=== PATIENT | male | born 1960 | race Caucasian/White ===

== ENCOUNTER 2020-05-10 20:17 | Inpatient (IN) | payer OTHER ==
[~2020-05-10] VITALS: Ht 180.3 cm; Wt 124.0 kg
[2020-05-10] MEDS ORDERED: fentaNYL PF VIAL 100 MCG/2 ML VIAL IVP ONE (21:00)
--- NOTE | 2020-05-10 21:53 | PHYS DOC ---
Past Medical History Past Medical History: Hypertension Additional Past Medical Histor: CHRONS (BRADLEYNIKAdolfoLOLA APRN) Past Surgical History: Other Additional Past Surgical Histo: HERNIS REPAIRS (LOLA BLANCO APRN) Smoking Status: Current Every Day Smoker Alcohol Use: Rarely (FRANCISLOLA LR) General Adult EDM: Chief Complaint: HIP PAIN HPI: HPI: Patient is a 59 year old male who presents with sudden onset of right leg pain numbness and tingling that started at approximately 1930 today while he was sitting in a home office chair. Patient attributes his pain to last Sunday stating he fell through the top stair of of a short staircase and landed approximately 3 feet onto the ground with both feet causing an abrasion to the right bean area that he has been cleansing daily with soap and water and placing Neosporin and Band-Aids over. Patient states that he was able to ambulate without problems other than the soreness in his right bean area until today while sitting in his office chair he had the sudden onset of severe pain that started in the right buttocks and trouble down the back of his leg along with some tingling from the calf area down to his foot and then noticed some numbness on the anterior part of his bean and the top part of his foot which prompted him to come to the emergency department today. Patient rates his pain a 10 out of 10 in his right buttocks down through his right leg area and states he cannot get comfortable although he did not take anything for the pain prior to coming to the emergency department today patient denies pain to other extremities. Patient states he does have a history of hypertension which he takes lisinopril for daily Crohn's disease which he takes Humira for daily and chronic back pains that he takes Flexeril and meloxicam for every night. Patient also indicates he has a left lower groin hernia that is easily reduced and reports he will schedule surgery in the future for. Patient denies any fever chills any current vision changes any nasal congestion or sore throat. Patient denies any cough or shortness of breath. Chest pain or swelling of his extremities. Patient denies any abdominal pain, nausea, vomiting, diarrhea, blood in the stools, or constipation. Patient denies any problems urinating. Patient denies any pain in his joints other than his right lower extremity today. Patient denies any skin rashes although complains of an abrasion to his right bean that he has been caring for at home. Patient denies any headaches or focal weaknesses although does complain of sensory changes down his right lower extremity. Patient denies any swelling of his glands, any recent depression or anxieties, patient denies any homicidal suicidal ideations. Patient states he has a family history with a dad who is healthy and has no problems and takes no medicines. Mother has heart problems he is not aware of the specificity. (LOLA BLANCO APRN) Review of Systems: Review of Systems: Constitutional: Denies fever or chills. Eyes: Denies change in visual acuity. HENT: Denies nasal congestion or sore throat. Respiratory: Denies cough or shortness of breath. Cardiovascular: Denies chest pain or edema. GI: Denies abdominal pain, nausea, vomiting, bloody stools or diarrhea. : Denies dysuria. Musculoskeletal: Complains of chronic back pain that he takes prescription medications for, changes today include a severe right-sided low back pain that travels down his right leg. Patient denies any joint pains other than his knee and hip of the right leg. Integument: Denies rash. Patient does complain of abrasion down right bean that he is caring for at home with daily cleansing and application of antibiotic ointment with Band-Aids. Neurologic: Denies headache, focal weakness or sensory changes. Lymphatic: Denies swollen glands. Psychiatric: Denies depression or anxiety, homicidal or suicidal ideation. (LOLA BLANCO APRN) Heart Score: Risk Factors: Risk Factors: DM, Current or recent (<one month) smoker, HTN, HLP, family history of CAD, obesity. Risk Scores: Score 0 - 3: 2.5% MACE over next 6 weeks - Discharge Home Score 4 - 6: 20.3% MACE over next 6 weeks - Admit for Clinical Observation Score 7 - 10: 72.7% MACE over next 6 weeks - Early Invasive Strategies (LOLA BLANCO APRN) Family History: Family History: Patient states father is healthy takes no medications, mother has a heart condition he is unaware the specificity of. (LOLA BLANCO APRN) Current Medications: Patient states he takes lisinopril for hypertension, Humira for Crohn's disease, meloxicam and Flexeril at night for chronic back pains. Current Medications Medications (Trade) Dose Ordered Sig/[facility] Start Time Stop Time Status Last Admin Dose Admin Fentanyl Citrate (Fentanyl 2ml Vial) 75 mcg 1X ONCE 05/10/20 21:00 05/10/20 21:01 DC 05/10/20 21:10 75 MCG (LOLA BLANCO APRN) Allergies: Allergies: Allergies Coded Allergies Type Severity Reaction Last Updated Verified No Known Drug Allergies 05/10/20 No (LOLA BLANCO APRN) Physical Exam: PE: Constitutional: Well developed, well nourished, no acute distress, non-toxic appearance. HENT: Normocephalic, atraumatic, bilateral external ears normal, oropharynx moist, no oral exudates, nose normal. Eyes: PERRLA, EOMI, conjunctiva normal, no discharge. Pupils 4 mm. Neck: Normal range of motion, no tenderness, supple, no stridor. Cardiovascular:Heart rate regular rhythm, no murmur heart sounds S1-S2, no abnormalities noted per auscultation. Lungs & Thorax: Bilateral breath sounds clear to auscultation all lung valencia. Abdomen: Bowel sounds normal, soft, no tenderness, no masses, no pulsatile masses. Patient does have a reducible hernia in the left groin. Skin: Warm, dry, no erythema, no rash. Patient is left bean has abrasion from knee down to ankle area, nonbleeding, no infectious process noted. Back: Tenderness to the right side lumbar area with radiation down buttocks and right lower extremity, no CVA tenderness. Extremities: Tenderness to palpation from the right buttocks down the anterior thigh to the knee. Leg is ecchymotic with slight mottling, pedal and posterior tibial pulse not appreciated per palpation, limited range of motion related to pain, PROM intact, no edema. Neurologic: Alert and oriented X 3, normal motor function, normal sensory function, no focal deficits noted. Psychologic: Affect normal, judgement normal, mood normal. (LOLA BLANCO APRN) Current Patient Data: Vital Signs: Vital Signs Date Time Temp Pulse Resp B/P (MAP) Pulse Ox O2 Delivery O2 Flow Rate FiO2 05/10/20 21:10 Room Air 05/10/20 20:29 98.3 98 16 141/82 (101) 98 98.3 (LOLA BLANCO APRN) EKG: EKG: [] (LOLA BLANCO APRN) EKhrs EKG rate 106bmp sinus tachycardia no stemi (URIEL SALCEDO DO) Radiology/Procedures: Radiology/Procedures: PROCEDURE: CT ANGIO LOWER EXTREMITY RIGHT Right lower extremity arterial runoff study 05/10/2020 CLINICAL HISTORY: Cold blue right lower extremity with decreased sensation and movement. TECHNIQUE: After intravenous administration of 95 cc of Omnipaque 350, contiguous, 0.625 mm axial sections were obtained from the lower abdomen through the pelvis to include a right lower extremity arterial runoff study. Multiplanar 3-D MIP and volume rendered 3-D reconstructed images were obtained. One or more of the following individualized dose reduction techniques were utilized for this study: 1. Automated exposure control. 2. Adjustment of the mA and/or kV according to patient size. 3. Use of iterative reconstruction technique. FINDINGS: Atherosclerotic calcification of the distal abdominal aorta is seen. Moderate atherosclerotic calcification of the common iliac arteries and their branches is noted. The right common iliac artery is occluded 8 mm distal to its origin. The right external iliac artery is occluded. The proximal right internal iliac artery is occluded. Opacification of branches of the right internal iliac artery is seen via collaterals. The left common iliac artery and its branches are patent. The right common femoral artery opacifies with contrast via collateral arterial flow. Moderate atheromatous/atherosclerotic plaque formation is seen involving the major arterial structures of the right lower extremity. The right profunda femoral artery is patent. The right superficial femoral artery is patent. The right popliteal artery is narrowed distally. This stenosis measures approximately 50 percent and measures approximately 1 cm in length. The origin of the right anterior tibial artery is patent. The origins of the peroneal and posterior tibial arteries are patent. These arteries are small. The right anterior tibial artery is occluded approximately 9 cm distal to its origin. The peroneal artery appears to be occluded within the mid/distal right calf. The right posterior tibial artery extends to the right ankle/proximal right foot. No enhancement of the right dorsalis pedis artery is noted. There is a large left inguinal hernia which contains fat and nondilated sigmoid colon. This measures 13.2 cm in length. Degenerative changes are seen involving the lower lumbar spine and both hips. IMPRESSION: 1. Moderate atherosclerotic calcification of the right common iliac arteries and its branches is noted. The right common iliac artery is occluded near its origin. This extends to involve the right external iliac artery and proximal right internal iliac artery. The right common femoral artery reconstitutes via arterial collaterals. 2. A 50 percent stenosis is seen involving the distal right popliteal artery. 3. The right anterior tibial artery appears to be occluded 9 cm distal to its origin. The right peroneal artery appears to occlude within the mid/distal right calf. One vessel arterial runoff to the right ankle/foot is seen via he right posterior tibial artery. Electronically signed by: Gordon Law MD (05/10/2020 11:31 PM) [id number] DICTATED and SIGNED BY: GORDON LAW MD DATE: 05/10/202330 (LOLA BLANCO APRN) Course & Med Decision Making: Course & Med Decision Making Pertinent Labs and Imaging studies reviewed. (See chart for details) 59-year-old male that presented to the emergency department with right lower extremity pain sudden onset of started 1730 today while sitting in an office chair. Patient specifically describes a sudden onset of right lower back pain that travels down his buttocks down the back of his leg that changes into a tingling sensation down his calf area with numbness on the anterior bean area midshaft down to his foot. Patient indicates he fell through at the top step of a short staircase to the ground falling approximately 3 feet landing onto his feet and pulled himself back out of the staircase noticing an abrasion to his right bean area that he has been taking care with soap and water and antibiotic ointment daily. Physical examination was concerning for a vascular compromise as right lower extremity had areas of bruising light mottling and pedal along with posterior tibial pulses were not appreciated with palpation. Pain medication was ordered for patient's 10 out of 10 pain, labs were ordered, CT angio of the right lower extremity to rule out arterial compromise was ordered. Labs and EKG was also ordered. Upon the end of my shift imaging had not been completed, case was discussed with and primary emergency care was taken over by Dr. Uriel Salcedo, please refer to Dr. Salcedo's notes going forward. (LOLA BLANCO APRN) Course & Med Decision Making Patient was evaluated for chief complaint. On exam patient with a cold left lower extremity no palpable pulses. After evaluation CT angiogram extremity ordered-- clinical concern for arterial occlusion. CT report reviewed @ 2345--- Heprin ordered. Discussed patient with Dr Seaman of IR @ 2355hrs. Discussed patient with Dr Decker of Vascular Surgery @ 0000hrs. Patient to be taken to OR by Dr Decker. Patient to be admitted to Hospitalist. (URIEL SALCEDO DO) Gabriela Disclaimer: Dragdilshad Disclaimer: This electronic medical record was generated, in whole or in part, using a voice recognition dictation system. (LOLA BLANCO APRN) Departure Departure Impression: Primary Impression: Arterial occlusion Disposition: ADMITTED INPATIENT Condition: STABLE Justicifation of Admission Dx: Justifications for Admission: Justification of Admission Dx: Yes Comments: SURGICAL RLE WITH ARTERIAL OCCLUSION. (LOLA BLANCO APRN) LOLA BLANCO APRN May 10, 2020 21:53 URIEL SALCEDO DO May 11, 2020 01:30
[2020-05-10] MEDS ORDERED: HYDROmorphone 2 MG/ML VIAL IV ONE (22:00)
[2020-05-10 22:15] LABS: BASO % 1 % (0-3); EOS % 1 % (0-3); LYMPH # 2.2 x10^3/uL (1.0-4.8); LYMPH % 27 % (24-48); MEAN CORPUSCULAR HEMOGLOBIN 37 pg (25-35); MEAN CORPUSCULAR HGB CONC 36 g/dL (31-37); MEAN CORPUSCULAR VOLUME 103 fL (79-100); MONO # 0.5 x10^3/uL (0.0-1.1); MONO % 6 % (0-9); NEUT # 5.4 x10^3/uL (1.8-7.7); NEUT % 66 % (31-73); PLATELET COUNT 256 x10^3/uL (140-400); RED BLOOD COUNT 4.08 x10^6/uL (4.30-5.70); RED CELL DISTRIBUTION WIDTH 13.1 % (11.5-14.5); WHITE BLOOD COUNT 8.2 x10^3/uL (4.0-11.0)
[2020-05-10 22:21] LABS: CALCIUM 8.9 mg/dL (8.5-10.1); CREATININE 1.2 mg/dL (0.7-1.3); GFR 62.2; POTASSIUM 3.4 mmol/L (3.5-5.1)
[2020-05-10 22:24] LABS: PROTHROMBIN TIME PATIENT 12.8 SEC (11.7-14.0)
[2020-05-10 22:27] LABS: ALBUMIN 3.2 g/dL (3.4-5.0); ALBUMIN/GLOBULIN RATIO 0.9 (1.0-1.7); TOTAL BILIRUBIN 0.1 mg/dL (0.2-1.0); TOTAL PROTEIN 6.9 g/dL (6.4-8.2)
[2020-05-10] MEDS ORDERED: IOHEXOL 350 MG/ML 100 ML VIAL. IV ONE (23:15)
[2020-05-10] MEDS ORDERED: CONTRAST GIVEN. MC PRN (23:15)
--- NOTE | 2020-05-10 23:34 | RAD ---
Right lower extremity arterial runoff study 05/10/2020 CLINICAL HISTORY: Cold blue right lower extremity with decreased sensation and movement. TECHNIQUE: After intravenous administration of 95 cc of Omnipaque 350, contiguous, 0.625 mm axial sections were obtained from the lower abdomen through the pelvis to include a right lower extremity arterial runoff study. Multiplanar 3-D MIP and volume rendered 3-D reconstructed images were obtained. One or more of the following individualized dose reduction techniques were utilized for this study: 1. Automated exposure control. 2. Adjustment of the mA and/or kV according to patient size. 3. Use of iterative reconstruction technique. FINDINGS: Atherosclerotic calcification of the distal abdominal aorta is seen. Moderate atherosclerotic calcification of the common iliac arteries and their branches is noted. The right common iliac artery is occluded 8 mm distal to its origin. The right external iliac artery is occluded. The proximal right internal iliac artery is occluded. Opacification of branches of the right internal iliac artery is seen via collaterals. The left common iliac artery and its branches are patent. The right common femoral artery opacifies with contrast via collateral arterial flow. Moderate atheromatous/atherosclerotic plaque formation is seen involving the major arterial structures of the right lower extremity. The right profunda femoral artery is patent. The right superficial femoral artery is patent. The right popliteal artery is narrowed distally. This stenosis measures approximately 50 percent and measures approximately 1 cm in length. The origin of the right anterior tibial artery is patent. The origins of the peroneal and posterior tibial arteries are patent. These arteries are small. The right anterior tibial artery is occluded approximately 9 cm distal to its origin. The peroneal artery appears to be occluded within the mid/distal right calf. The right posterior tibial artery extends to the right ankle/proximal right foot. No enhancement of the right dorsalis pedis artery is noted. There is a large left inguinal hernia which contains fat and nondilated sigmoid colon. This measures 13.2 cm in length. Degenerative changes are seen involving the lower lumbar spine and both hips. IMPRESSION: 1. Moderate atherosclerotic calcification of the right common iliac arteries and its branches is noted. The right common iliac artery is occluded near its origin. This extends to involve the right external iliac artery and proximal right internal iliac artery. The right common femoral artery reconstitutes via arterial collaterals. 2. A 50 percent stenosis is seen involving the distal right popliteal artery. 3. The right anterior tibial artery appears to be occluded 9 cm distal to its origin. The right peroneal artery appears to occlude within the mid/distal right calf. One vessel arterial runoff to the right ankle/foot is seen via he right posterior tibial artery. Electronically signed by: Gordon Snyder MD (05/10/2020 11:31 PM) [id number]
[2020-05-11] MEDS ORDERED: HYDROmorphone 2 MG/ML VIAL IV ONE (00:30)
[2020-05-11] MEDS ORDERED: HEPARIN for IV BOLUS 10,000 UNIT/10 ML VIAL. IV PRN ×2 (00:30)
[2020-05-11] MEDS ORDERED: HEPARIN 25,000UTS/250ML PREMIX 250 ML IV PRN (00:30)
[2020-05-11] MEDS ORDERED: ONDANSETRON PF 4 MG/2 ML VIAL. IV PRN ×2 (00:45→01:45)
[2020-05-11] MEDS: HEPARIN for IV BOLUS 10,000 UNIT/10 ML VIAL. IV ONE (00:48)
[2020-05-11] MEDS ORDERED: HEPARIN for IV BOLUS 10,000 UNIT/10 ML VIAL. IV ONE (00:48)
[2020-05-11] MEDS ORDERED: IV NORMAL SALINE 1000ML BAG 1,000 ML IV ONE (01:30)
[2020-05-11] MEDS ORDERED: BUPIVACAINE MPF 0.5% 30 ML VIAL. ONE (01:40)
[2020-05-11] MEDS ORDERED: LIDOCAINE 1% Multi-Dose 20 ML VIAL. ONE (01:40)
[2020-05-11] MEDS ORDERED: IOHEXOL 300 MG/ML 50 ML VIAL. ONE (01:41)
[2020-05-11] MEDS ORDERED: GELATIN SPONGE SIZE 100. ONE (01:41)
[2020-05-11] MEDS ORDERED: THROMBIN TOPICAL 20,000 UNIT SPRAY.SYRN KIT TP ONE (01:42)
[2020-05-11] MEDS ORDERED: PAPAVERINE 60 MG/2 ML VIAL. ONE (01:42)
[2020-05-11] MEDS ORDERED: SURGICEL FIBRILLAR 1X2 EACH. ONE (01:42)
[2020-05-11] MEDS ORDERED: THROMBIN TOPICAL 5,000 UNIT VIAL. ONE (01:42)
[2020-05-11] MEDS ORDERED: fentaNYL PF VIAL 100 MCG/2 ML VIAL IV PRN ×2 (01:45)
[2020-05-11] MEDS ORDERED: PROCHLORPERAZINE 10 MG/2 ML VIAL. IV PRN (01:45)
[2020-05-11] MEDS ORDERED: HYDROmorphone 2 MG/ML VIAL IV PRN (01:45)
[2020-05-11] MEDS ORDERED: LIDOCAINE 1% PF 2 ML VIAL. ID PRN (01:45)
[2020-05-11] MEDS ORDERED: MORPHINE SULFATE 2 MG/ML VIAL. IV PRN (01:45)
[2020-05-11] MEDS ORDERED: IV RINGERS,LACTATED 1000ML 1,000 ML IV SCH (01:45)
[2020-05-11] MEDS ORDERED: SUCCINYLCHOLINE 200 MG/10 ML VIAL. ONE (01:47)
[2020-05-11] MEDS ORDERED: MIDAZOLAM HCL/PF 2 MG/2 ML VIAL. ONE (01:47)
[2020-05-11] MEDS ORDERED: ROCURONIUM 50 MG/5 ML VIAL. ONE (01:47)
[2020-05-11] MEDS ORDERED: LIDOCAINE 2% PF 5 ML VIAL. ONE (01:48)
[2020-05-11] MEDS ORDERED: PROPOFOL 10 MG/ML (20ML) VIAL. IV ONE (01:48)
[2020-05-11] MEDS ORDERED: DEXAMETHASONE SOD PHOS 4 MG/ML VIAL ONE (01:48)
[2020-05-11 01:52] LABS: BILIRUBIN,URINE NEGATIVE (NEG); CLARITY,URINE CLEAR; COLOR,URINE YELLOW
[2020-05-11 01:53] LABS: NITRITE,URINE NEGATIVE (NEG); PH,URINE 5.5 (<5.0-8.0); PROTEIN,URINE NEGATIVE (NEG-TRACE); UROBILINOGEN,URINE 0.2 mg/dL (0.2 mg/dL)
[2020-05-11 01:54] LABS: BACTERIA,URINE 0 /HPF (0-FEW); HYALINE CASTS, URINE FEW /HPF; RBC,URINE 0 /HPF (0-2); SQUAMOUS EPITHELIAL CELL,UR FEW /LPF; WBC,URINE OCC /HPF (0-4)
[2020-05-11] MEDS ORDERED: ALTEPLASE 2 MG VIAL INT CAT ONE (02:00)
[2020-05-11] MEDS ORDERED: HEPARIN SODIUM 5,000 UNIT in IV NORMAL SALINE 500ML BAG 500 ML IRR ONE (02:00)
--- NOTE | 2020-05-11 02:14 | PDOC ---
Provider Note Provider Note Vascular Surgery Consult dictated 59 year old male with right leg acute ischemia symptomatic with pain, numbness and weakness. CTA shows thrombosis of the right iliac artery and likely anterior tibial artery. Symptoms started suddenly at 7:30pm on 05/10/2020. He did fall a week ago and injured his right leg which has skin wounds on the bean and bruising. Plan emergent right leg arterial thrombectomy surgery. On a heparin drip. Justicifation of Admission Dx: Justifications for Admission: Justification of Admission Dx: Yes KYLIE CAM MD May 11, 2020 02:14
[2020-05-11] MEDS ORDERED: ONDANSETRON PF 4 MG/2 ML VIAL. IVP PRN (02:30)
--- NOTE | 2020-05-11 02:33 | CONS ---
DATE OF CONSULTATION: 05/11/2020 CHIEF COMPLAINT: Right leg pain. HISTORY OF PRESENT ILLNESS: The patient is a 59-year-old male, who developed sudden onset of right leg pain, numbness, and tingling around 7:30 p.m. this evening. He reports that the pain extends from his right hip all the way down through his right leg. His numbness is located from the right side to the right foot, but significantly worse below the knee. He is able to move his right foot, but says that it feels weak. Prior to this evening, he was able to ambulate without pain or discomfort in his leg and he had no numbness. He did suffer an injury to his right leg by cutting his leg on his deck approximately 1 week ago and has some bruising and skin excoriations on the right lower leg, which caused him some discomfort, but symptoms were fairly mild. This pain and numbness is new this evening. In the past, he is able to walk long distances without pain or discomfort in the legs. He reports no pain in his left leg currently, no numbness or weakness. He has felt healthy with no chest pain or shortness of breath. He has no history of strokes. He takes no blood thinners at home. Here in the Emergency Department, he underwent a CT angiogram of the pelvis and right lower extremity, which shows occlusion of the right common iliac and external iliac artery, which appears likely to be thrombus. There is reconstitution of the common femoral artery and runoff through his lower extremity through his posterior tibial artery, the anterior tibial artery appears occluded in the lower leg. His left iliac artery and femoral artery are widely patent. He does have some mild calcification of the iliac arteries, but no signs of chronic occlusive disease by imaging study. REVIEW OF SYSTEMS: A 10-point review of systems was performed, which is otherwise negative besides what is mentioned in the history of present illness. PAST MEDICAL HISTORY: Includes: 1. Hypertension. 2. Crohn disease. PAST SURGICAL HISTORY: Includes umbilical hernia repair. ALLERGIES: No known drug allergies. MEDICATIONS: At home include lisinopril, Flexeril, meloxicam, and Humira. FAMILY HISTORY: Significant for heart disease. PHYSICAL EXAMINATION: GENERAL: The patient is awake and alert, currently in no distress. VITAL SIGNS: His blood pressure is 196/84, his heart rate is 106. He is 96% on room air. NECK: Supple. HEART: Regular rate and without murmur. LUNGS: Have bilateral breath sounds to auscultation. ABDOMEN: Obese, but it is soft, nondistended, and nontender throughout all 4 quadrants. He does have a scar at his umbilicus from his previous hernia repair. EXTREMITIES: His bilateral upper extremities are warm without edema with palpable radial pulses. His right lower extremity has skin excoriations and ulceration on his right bean with bruising of his bean and ankle from his recent injury, the right foot is dusky in color with slow capillary refill at the toes. He has decreased muscle function in his right foot and leg. He is able to move his toes and foot, but is very weak. He has decreased sensation throughout the right leg, worse below the knee at the calf and foot level. There is no mottling throughout the leg itself and really no mottling in the foot, just bruises, but he does have decreased capillary refill. There is no palpable femoral pulse and I am not able to Doppler any flow in his right foot. His left lower extremity is warm, no swelling, palpable femoral and palpable pedal pulses in his left foot with normal motor and sensory function. NEUROLOGIC: He is awake and alert, oriented x 3, moving all extremities except his right leg with normal strength. His right leg is weak, normal speech, no gross neurologic acute deficits worrisome for stroke. ASSESSMENT AND PLAN: The patient is a 59-year-old male with sudden onset of right lower extremity acute ischemia symptomatic with pain, numbness, and weakness of his right leg. His symptoms began at approximately 7:[address] angiogram shows complete thrombosis of the right iliac artery and single-vessel runoff to his right leg through a posterior tibial artery. This is likely an embolic event with its sudden onset. He does not have any significant known cardiac disease. He has been started on heparin drip. I recommend emergent surgical intervention for right leg arterial thrombectomy with possible need for [id number] artery bypass if his right iliac artery could not be cleaned out and inflow restored. I did discuss the possibility for need of right lower extremity fasciotomy. I discussed the risk of possible permanent nerve and muscular dysfunction, if his ischemia worsens, this would progress to eventual amputation of his leg. I also discussed the risk of his incisions, including difficulty healing his right groin incision with wound breakdown or need for a surgical debridement in the future. He will be taken emergently to the operating room for right leg arterial intervention. He will be admitted to the hospital following and the medical physician and Cardiology services will be managing him. He will need an embolic workup for possible sources of this acute occlusion. KYLIE CAM MD DR: ROBERT/pool JOB#: [id number] / [id number]
[2020-05-11] MEDS ORDERED: HEPARIN for IV BOLUS 10,000 UNIT/10 ML VIAL. ONE (02:56)
[2020-05-11] MEDS ORDERED: fentaNYL PF VIAL 100 MCG/2 ML VIAL ONE ×2 (03:11→05:27)
[2020-05-11] MEDS ORDERED: SODIUM BICARB ADULT 8.4% 50 MEQ/50 ML DISP.SYRIN. ONE (04:02)
[2020-05-11] MEDS: ceFAZolin SODIUM IV Push 1 GM VIAL. IVP SCH ×3 (06:00→21:14)
[2020-05-11 07:00] VITALS: BP 141/84
--- NOTE | 2020-05-11 07:00 | NUR ---
Pt had arrived to unit prior to start of shift. Upon entering room, pt noted to be in bed with right lower extremity wrapped s/p faschiotomy. VS stable. Pt stating he has slight discomfort in his groin area with movement. Pain medication given. Pt right lower extremity is warm to touch with palpable pulses. Right groin has prevena wound vac attached. Pt has feeling in bilateral lower extremities as well as the ability to move. Pt is alert and orient x4. Pt resting comfortably post assessment. Will continue to monitor.
--- NOTE | 2020-05-11 07:56 | OP ---
DATE OF SURGERY: 05/11/2020 SURGEON: Chayo Decker MD ANESTHESIA USED: General anesthesia. PREOPERATIVE DIAGNOSIS: Right lower extremity acute limb-threatening ischemia secondary to thrombosis of his right iliac artery. POSTOPERATIVE DIAGNOSES: 1. 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 2. 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 OPERATIONS PERFORMED: 1. Right common femoral artery cutdown with thrombectomy of the right iliac artery. 2. Right common femoral artery and profunda artery endarterectomy. 3. Right calf 4-compartment fasciotomies through an open medial and lateral incision. BLOOD LOSS: 200 mL. INDICATIONS: The patient is a 59-year-old male who presented with acute onset of symptoms in his right leg with pain, numbness and decreased motor function. This began suddenly at approximately 7:30 p.m. on 05/10/2020. In the Emergency Department, a CT angiogram was performed, which showed complete thrombosis of the right iliac artery and nonvisualization of the anterior tibial artery. He has severe symptoms of right leg pain, numbness and decreased motor function. I recommended emergent surgical intervention with right femoral artery cutdown and thrombectomy of his right lower extremity with possible bypass and possible need for open fasciotomies. Informed consent was obtained including the risks of bleeding, infection, possible further ischemia to his leg requiring further arterial interventions in the future, possible permanent nerve and muscle damage and the leg and loss of the leg if his circulation does not improve. I also explained to him that it is difficult to heal groin incisions and lower leg incisions and he may have difficulties with infection, open wounds requiring debridement and long-term wound care. DETAILS OF THE OPERATION: The patient was brought to the operating room and placed on table in supine position. He received general anesthesia and monitored throughout the case by the anesthesiologist. We prepped the lower abdomen, left leg down to the knee and right leg circumferentially by normal sterile fashion. We draped the patient. We began by making a longitudinal incision through the right groin, dissected down through copious amounts of subcutaneous tissue, ligating crossing venous and lymphatic branches with clips and dividing them. I dissected down to the femoral vessels. The common femoral artery was identified and I dissected it out. At the area of the profunda, there was heavy calcification within the artery and this continued throughout the mid and proximal common femoral artery. I dissected the common femoral artery under the inguinal ligament to the external iliac artery, which was soft. There was no pulse within the artery. A vessel loop was placed around the distal external iliac artery. I then dissected out the profunda artery and superficial femoral arteries and placed vessel loops around them. We heparinized with 4000 additional units of heparin. He did receive a heparin bolus prior to the surgery in the Emergency Department. I then made a longitudinal arteriotomy in the common femoral artery extending it into the superficial femoral artery across dense plaque. There was fresh thrombus within the lumen of the vessel. I used a #4 Mely embolectomy catheter and I advanced it proximally up the iliac artery. Initially, it would not advance all the way, I did pull back thrombus. Eventually, we were able to pass it all the way up into the aorta and pulled back and got a very dense organized thrombus plug, which was removed and there was pulsatile inflow. We repeated passes until there was no further thrombus and there was good pulsatile inflow through the iliac artery. I clamped the proximal vessel. I ran a #3 Mely embolectomy catheter down the length of the leg to the superficial femoral artery, pulled back and there was no thrombus and there was good backbleeding. We irrigated with heparinized saline. I ran a #3 Mely catheter down the profunda artery and pulled back and there was no thrombus removed and brisk backbleeding. There was dense plaque within the common femoral artery and profunda artery. I performed an extensive endarterectomy of the common femoral artery up to the external iliac artery and then performed endarterectomy of the profunda artery. The profunda artery had a dense plaque. I did have endarterectomized at least a 2-3 cm distally within the profunda artery before the plaque was removed and there was good brisk backbleeding and a wide open vessel. The superficial femoral artery had no significant plaque. I removed the endarterectomized plane and tacked the posterior wall down with 7-0 interrupted sutures to ensure no lifting of plaque. We irrigated with heparinized saline. I used a bovine pericardial patch closure on the common femoral artery with running a just 7-0 Prolene suture. Prior to finishing this, I removed the clamp off the iliac artery and there was pulsatile inflow and then removed the distal clamps and there was good backbleeding. We finished our anastomosis and restored blood flow. After several minutes, we checked pulses in the foot. There was strong dopplerable flow at the dorsalis pedis and posterior tibial location, which was dependent. The foot was becoming very pink. Because of his long ischemic time and severe symptoms of the right leg, I felt fasciotomies were needed. He was already having swelling of the right calf from his recent injury as well with bruising of the calf as well. Therefore, I made a longitudinal incision down the medial and lateral lower leg in the lateral compartment, we dissected down to the fascia and open the anterior and lateral compartments longitudinally along the length of the leg opening the fascia. The muscle was healthy and pink and responded to cautery in these 2 compartments. Medially, we opened the fascia along the length of the leg and also opened the deep compartment and the muscle was healthy. Hemostasis was gained with electrocautery and clips. We irrigated these open wounds with copious amounts of antibiotic solution. The groin was irrigated with copious amounts of antibiotic solution. Hemostasis was gained and there was no bleeding. Fibrillar was left over the vessels. We closed the subcutaneous tissue level with 3 layers of 2-0 Vicryl suture and then closed the skin with chyna. We packed the open fasciotomy wounds with antibiotic-soaked Kerlix gauze, covered it with ABD pads, a Kerlix wrap and an Rajesh bandage. He had excellent Doppler flow at his dorsalis pedis and posterior tibial location in his right foot at the end of the case. He tolerated the surgery well with no immediate complications. SPECIMEN REMOVED: Thrombus from the right leg. CHAYO DECKER MD DR: ROBERT/pool JOB#: [id number] / [id number]
[2020-05-11] MEDS ORDERED: ASPIRIN 325 MG TABLET PO SCH (08:00)
[2020-05-11 08:27] LABS: CALCIUM 8.3 mg/dL (8.5-10.1); GFR 76.7
[2020-05-11 08:28] LABS: HEMOGLOBIN 14.1 g/dL (13.0-17.5); RED BLOOD COUNT 3.86 x10^6/uL (4.30-5.70); RED CELL DISTRIBUTION WIDTH 13.4 % (11.5-14.5); WHITE BLOOD COUNT 9.4 x10^3/uL (4.0-11.0)
[2020-05-11] MEDS: oxyCODONE/APAP 5/325 1 TAB TABLET PO PRN ×3 (08:37→21:12)
[2020-05-11] MEDS ORDERED: ANTI-COAG MONITOR BY PHARMACY. MC PRN (09:45)
--- NOTE | 2020-05-11 09:46 | PDOC ---
PROGRESS NOTES Subjective Subjective I'm doing alright. I have some stinging in my right groin and my right lower leg hurts but I can move my foot. He is post op day of surgery from: 1. Right common femoral artery cutdown with thrombectomy of the right iliac artery. 2. Right common femoral artery and profunda artery endarterectomy. 3. Right calf 4-compartment fasciotomies through an open medial and lateral incision. His postop lab is stable and normal range. His WBC is 9.4 His hemoglobin, hematocrit and platelet count are all normal. His creatinine is 1.0. Objective Objective Vital Signs Date Time Temp Pulse Resp B/P (MAP) Pulse Ox O2 Delivery O2 Flow Rate FiO2 05/11/20 08:37 96 05/11/20 07:00 96.8 90 18 141/84 (103) Nasal Cannula 2.0 96.8 Physical Exam Physical Exam His vital signs are stable. He is still a little bit sleepy from surgery. He is in no acute distress. He has a Sudha wound VAC in place on his right groin. There is no surrounding redness or edema in this location. His right calf is wrapped with a white Rajesh wrap. There is a little bit of shadowing starting to show through from some bleeding from the calf but no excessive bloody drainage is present. His right foot is puffy and has bruising present but it is warm and pink. He can move both feet, dorsiflex and plantarflex. He has an easy to Doppler pulse both dorsalis pedis and posterior tibial in his right foot Heart: Regular rate Extremities: No cyanosis General: Cooperative, No acute distress HEENT: Atraumatic Neuro: Normal speech Psych/Mental Status: Mood NL Skin: No breakdown Assessment Assessment 59-year-old gentleman who is now status post thrombectomy of the right iliac artery with Right common femoral artery and profunda artery endarterectomy and Right calf 4-compartment fasciotomies through an open medial and lateral incision. He currently has no significant complaints of pain but admits to having received a pain pill shortly before my arrival. He is resting comfortably in bed. He can move both feet. He has excellent Doppler flow in his right foot. Plan: We are going to order a CTA of the abdomen and pelvis for tomorrow due to dye load from surgery. Dr. Decker wants to reevaluate his right iliac system in case additional intervention is required. We will continue him on a heparin drip at 700 units/h today. After dressing change to his right lower leg tomorrow, will consider a weight-based heparin protocol, no bolus. Cardiology has been requested to consult and look for a potential embolic source for his iliac and femoral occlusion. An echo has been ordered. We will change his open fasciotomy dressings tomorrow with a saline wet-to-dry daily dressing. At that time, we will assess for possible ability to close the fasciotomy surgically at the end of this week. If that does not appear to be possible, he will need a wound VAC to the fasciotomy sites. I reiterated to him that smoking cessation is an absolute must. Continue daily aspirin. Follow-up tomorrow for dressing changes and reevaluation. Comment Review of Relevant I have reviewed the following items [place] (where applicable) has been applied. Labs Laboratory Tests Test 05/10/20 22:08 05/11/20 01:30 05/11/20 06:55 White Blood Count 8.2 x10^3/uL (4.0-11.0) 9.4 x10^3/uL (4.0-11.0) Red Blood Count 4.08 x10^6/uL (4.30-5.70) 3.86 x10^6/uL (4.30-5.70) Hemoglobin 15.0 g/dL (13.0-17.5) 14.1 g/dL (13.0-17.5) Hematocrit 42.0 % (39.0-53.0) 40.0 % (39.0-53.0) Mean Corpuscular Volume 103 fL (79-100) 104 fL (79-100) Mean Corpuscular Hemoglobin 37 pg (25-35) 36 pg (25-35) Mean Corpuscular Hemoglobin Concent 36 g/dL (31-37) 35 g/dL (31-37) Red Cell Distribution Width 13.1 % (11.5-14.5) 13.4 % (11.5-14.5) Platelet Count 256 x10^3/uL (140-400) 212 x10^3/uL (140-400) Neutrophils (%) (Auto) 66 % (31-73) Lymphocytes (%) (Auto) 27 % (24-48) Monocytes (%) (Auto) 6 % (0-9) Eosinophils (%) (Auto) 1 % (0-3) Basophils (%) (Auto) 1 % (0-3) Neutrophils # (Auto) 5.4 x10^3/uL (1.8-7.7) Lymphocytes # (Auto) 2.2 x10^3/uL (1.0-4.8) Monocytes # (Auto) 0.5 x10^3/uL (0.0-1.1) Eosinophils # (Auto) 0.0 x10^3/uL (0.0-0.7) Basophils # (Auto) 0.0 x10^3/uL (0.0-0.2) Prothrombin Time 12.8 SEC (11.7-14.0) Prothromb Time International Ratio 1.0 (0.8-1.1) Activated Partial Thromboplast Time 26 SEC (24-38) Sodium Level 138 mmol/L (136-145) 138 mmol/L (136-145) Potassium Level 3.4 mmol/L (3.5-5.1) 5.0 mmol/L (3.5-5.1) Chloride Level 101 mmol/L (98-107) 101 mmol/L (98-107) Carbon Dioxide Level 22 mmol/L (21-32) 28 mmol/L (21-32) Anion Gap 15 (6-14) 9 (6-14) Blood Urea Nitrogen 12 mg/dL (8-26) 12 mg/dL (8-26) Creatinine 1.2 mg/dL (0.7-1.3) 1.0 mg/dL (0.7-1.3) Estimated GFR (Cockcroft-Gault) 62.2 76.7 BUN/Creatinine Ratio 10 (6-20) Glucose Level 193 mg/dL (70-99) 148 mg/dL (70-99) Calcium Level 8.9 mg/dL (8.5-10.1) 8.3 mg/dL (8.5-10.1) Total Bilirubin 0.1 mg/dL (0.2-1.0) Aspartate Amino Transf (AST/SGOT) 34 U/L (15-37) Alanine Aminotransferase (ALT/SGPT) 40 U/L (16-63) Alkaline Phosphatase 78 U/L (46-116) Total Protein 6.9 g/dL (6.4-8.2) Albumin 3.2 g/dL (3.4-5.0) Albumin/Globulin Ratio 0.9 (1.0-1.7) Urine Collection Type Unknown Urine Color Yellow Urine Clarity Clear Urine pH 5.5 (<5.0-8.0) Urine Specific [place] >=1.030 (1.000-1.030) Urine Protein Negative mg/dL (NEG-TRACE) Urine Glucose (UA) >=1000 mg/dL (NEG) Urine Ketones (Stick) Negative mg/dL (NEG) Urine Blood Negative (NEG) Urine Nitrite Negative (NEG) Urine Bilirubin Negative (NEG) Urine Urobilinogen Dipstick 0.2 mg/dL (0.2 mg/dL) Urine Leukocyte Esterase Negative (NEG) Urine RBC 0 /HPF (0-2) Urine WBC Occ /HPF (0-4) Urine Squamous Epithelial Cells Few /LPF Urine Bacteria 0 /HPF (0-FEW) Urine Hyaline Casts Few /HPF Urine Mucus Slight /LPF Lactic Acid Level 3.7 mmol/L (0.4-2.0) Troponin I Quantitative 0.021 ng/mL (0.000-0.055) Laboratory Tests Test 05/10/20 22:08 05/11/20 01:30 05/11/20 06:55 White Blood Count 8.2 x10^3/uL (4.0-11.0) 9.4 x10^3/uL (4.0-11.0) Red Blood Count 4.08 x10^6/uL (4.30-5.70) 3.86 x10^6/uL (4.30-5.70) Hemoglobin 15.0 g/dL (13.0-17.5) 14.1 g/dL (13.0-17.5) Hematocrit 42.0 % (39.0-53.0) 40.0 % (39.0-53.0) Mean Corpuscular Volume 103 fL (79-100) 104 fL (79-100) Mean Corpuscular Hemoglobin 37 pg (25-35) 36 pg (25-35) Mean Corpuscular Hemoglobin Concent 36 g/dL (31-37) 35 g/dL (31-37) Red Cell Distribution Width 13.1 % (11.5-14.5) 13.4 % (11.5-14.5) Platelet Count 256 x10^3/uL (140-400) 212 x10^3/uL (140-400) Neutrophils (%) (Auto) 66 % (31-73) Lymphocytes (%) (Auto) 27 % (24-48) Monocytes (%) (Auto) 6 % (0-9) Eosinophils (%) (Auto) 1 % (0-3) Basophils (%) (Auto) 1 % (0-3) Neutrophils # (Auto) 5.4 x10^3/uL (1.8-7.7) Lymphocytes # (Auto) 2.2 x10^3/uL (1.0-4.8) Monocytes # (Auto) 0.5 x10^3/uL (0.0-1.1) Eosinophils # (Auto) 0.0 x10^3/uL (0.0-0.7) Basophils # (Auto) 0.0 x10^3/uL (0.0-0.2) Prothrombin Time 12.8 SEC (11.7-14.0) Prothromb Time International Ratio 1.0 (0.8-1.1) Activated Partial Thromboplast Time 26 SEC (24-38) Sodium Level 138 mmol/L (136-145) 138 mmol/L (136-145) Potassium Level 3.4 mmol/L (3.5-5.1) 5.0 mmol/L (3.5-5.1) Chloride Level 101 mmol/L (98-107) 101 mmol/L (98-107) Carbon Dioxide Level 22 mmol/L (21-32) 28 mmol/L (21-32) Anion Gap 15 (6-14) 9 (6-14) Blood Urea Nitrogen 12 mg/dL (8-26) 12 mg/dL (8-26) Creatinine 1.2 mg/dL (0.7-1.3) 1.0 mg/dL (0.7-1.3) Estimated GFR (Cockcroft-Gault) 62.2 76.7 BUN/Creatinine Ratio 10 (6-20) Glucose Level 193 mg/dL (70-99) 148 mg/dL (70-99) Calcium Level 8.9 mg/dL (8.5-10.1) 8.3 mg/dL (8.5-10.1) Total Bilirubin 0.1 mg/dL (0.2-1.0) Aspartate Amino Transf (AST/SGOT) 34 U/L (15-37) Alanine Aminotransferase (ALT/SGPT) 40 U/L (16-63) Alkaline Phosphatase 78 U/L (46-116) Total Protein 6.9 g/dL (6.4-8.2) Albumin 3.2 g/dL (3.4-5.0) Albumin/Globulin Ratio 0.9 (1.0-1.7) Urine Collection Type Unknown Urine Color Yellow Urine Clarity Clear Urine pH 5.5 (<5.0-8.0) Urine Specific [place] >=1.030 (1.000-1.030) Urine Protein Negative mg/dL (NEG-TRACE) Urine Glucose (UA) >=1000 mg/dL (NEG) Urine Ketones (Stick) Negative mg/dL (NEG) Urine Blood Negative (NEG) Urine Nitrite Negative (NEG) Urine Bilirubin Negative (NEG) Urine Urobilinogen Dipstick 0.2 mg/dL (0.2 mg/dL) Urine Leukocyte Esterase Negative (NEG) Urine RBC 0 /HPF (0-2) Urine WBC Occ /HPF (0-4) Urine Squamous Epithelial Cells Few /LPF Urine Bacteria 0 /HPF (0-FEW) Urine Hyaline Casts Few /HPF Urine Mucus Slight /LPF Lactic Acid Level 3.7 mmol/L (0.4-2.0) Troponin I Quantitative 0.021 ng/mL (0.000-0.055) Medications Current Medications Fentanyl Citrate (Fentanyl 2ml Vial) 75 mcg 1X ONCE IVP Last administered on 05/10/20at 21:10; Start 05/10/20 at 21:00; Stop 05/10/20 at 21:01; Status DC Hydromorphone HCl (Dilaudid) 1 mg 1X ONCE IV Last administered on 05/10/20at 22 :04; Start 05/10/20 at 22:00; Stop 05/10/20 at 22:01; Status DC Iohexol (Omnipaque 350 Mg/ml) 75 ml 1X ONCE IV Last administered on 05/10/20at 23:12; Start 05/10/20 at 23:15; Stop 05/10/20 at 23:16; Status DC Info (CONTRAST GIVEN -- Rx MONITORING) 1 each PRN DAILY PRN MC SEE COMMENTS; Start 05/10/20 at 23:15; Stop 05/12/20 at 23:14 Heparin Sodium (Porcine) (Heparin Sodium) 9,100 unit 1X ONCE IV ; Start 05/11/20 at 00:30; Stop 05/11/20 at 00:31; Status DC Heparin Sodium/ Dextrose 250 ml @ 7 mls/hr CONT PRN IV PER PROTOCOL Last administered on 05/11/20at 00:51; Start 05/11/20 at 00:30 Heparin Sodium (Porcine) (Heparin Sodium) 3,400 unit PRN Q6HRS PRN IV FOR UFH LEVEL LESS THAN 0.2; Start 05/11/20 at 00:30 Heparin Sodium (Porcine) (Heparin Sodium) 1,700 unit PRN Q6HRS PRN IV FOR UFH LEVEL 0.2 - 0.29; Start 05/11/20 at 00:30 Hydromorphone HCl (Dilaudid) 1 mg 1X ONCE IV Last administered on 05/11/20at 00:41; Start 05/11/20 at 00:30; Stop 05/11/20 at 00:31; Status DC Ondansetron HCl (Zofran) 4 mg PRN Q8HRS PRN IV NAUSEA/VOMITING; Start 05/11/20 at 00:45; Stop 05/12/20 at 00:44 Heparin Sodium (Porcine) (Heparin Sodium) 5,000 unit 1X ONCE IV Last administered on 05/11/20at 00:48; Start 05/11/20 at 00:48; Stop 05/11/20 at 01:19; Status DC Sodium Chloride 1,000 ml @ 1,000 mls/hr 1X ONCE IV ; Start 05/11/20 at 01:30; Stop 05/11/20 at 02:29; Status DC Lidocaine HCl (Lidocaine 1% 20ml Vial) 20 ml STK-MED ONCE .ROUTE ; Start 05/11/20 at 01:40; Stop 05/11/20 at 01:41; Status DC Bupivacaine HCl (Sensorcaine Mpf 0.5%) 30 ml STK-MED ONCE .ROUTE ; Start 05/11/20 at 01:40; Stop 05/11/20 at 01:41; Status DC Gelatin (Gelfoam Size 100) 1 each STK-MED ONCE .ROUTE ; Start 05/11/20 at 01:41; Stop 05/11/20 at 01:42; Status DC Iohexol (Omnipaque 300 Mg/ml) 50 ml STK-MED ONCE .ROUTE ; Start 05/11/20 at 01:41; Stop 05/11/20 at 01:42; Status DC Cellulose (Surgicel Fibrillar 1x2) 1 each STK-MED ONCE .ROUTE ; Start 05/11/20 at 01:42; Stop 05/11/20 at 01:42; Status DC Thrombin (Thrombin Topical) 5,000 unit STK-MED ONCE .ROUTE ; Start 05/11/20 at 01:42; Stop 05/11/20 at 01:42; Status DC Papaverine HCl 60 mg STK-MED ONCE .ROUTE ; Start 05/11/20 at 01:42; Stop 05/11/20 at 01:42; Status DC Thrombin 20,000 unit STK-MED ONCE TP ; Start 05/11/20 at 01:42; Stop 05/11/20 at 01:42; Status DC Ondansetron HCl (Zofran) 4 mg PRN Q6HRS PRN IV NAUSEA/VOMITING; Start 05/11/20 at 01:45; Stop 05/12/20 at 01:44 Fentanyl Citrate (Fentanyl 2ml Vial) 25 mcg PRN Q5MIN PRN IV MILD PAIN 1-3; Start 05/11/20 at 01:45; Stop 05/12/20 at 01:44 Fentanyl Citrate (Fentanyl 2ml Vial) 50 mcg PRN Q5MIN PRN IV MODERATE TO SEVERE PAIN; Start 05/11/20 at 01:45; Stop 05/12/20 at 01:44 Morphine Sulfate (Morphine Sulfate) 1 mg PRN Q10MIN PRN IV SEVERE PAIN 7-10; Start 05/11/20 at 01:45; Stop 05/12/20 at 01:44 Ringer's Solution 1,000 ml @ 30 mls/hr Q24H IV ; Start 05/11/20 at 01:45; Stop 05/11/20 at 13:44 Lidocaine HCl (Xylocaine-Mpf 1% 2ml Vial) 2 ml PRN 1X PRN ID PRIOR TO IV START; Start 05/11/20 at 01:45; Stop 05/12/20 at 01:44 Hydromorphone HCl (Dilaudid) 0.5 mg PRN Q10MIN PRN IV SEV PAIN, Second choice; Start 05/11/20 at 01:45; Stop 05/12/20 at 01:44 Prochlorperazine Edisylate (Compazine) 5 mg PACU PRN PRN IV NAUSEA, MRX1; Start 05/11/20 at 01:45; Stop 05/12/20 at 01:44 Succinylcholine Chloride (Anectine) 200 mg STK-MED ONCE .ROUTE ; Start 05/11/20 at 01:47; Stop 05/11/20 at 01:47; Status DC Rocuronium [place] (Zemuron) 50 mg STK-MED ONCE .ROUTE ; Start 05/11/20 at 01:47; Stop 05/11/20 at 01:47; Status DC Midazolam HCl (Versed) 2 mg STK-MED ONCE .ROUTE ; Start 05/11/20 at 01:47; Stop 05/11/20 at 01:47; Status DC Dexamethasone Sodium Phosphate (Decadron) 4 mg STK-MED ONCE .ROUTE ; Start 05/11/20 at 01:48; Stop 05/11/20 at 01:48; Status DC Propofol (Diprivan) 200 mg STK-MED ONCE IV ; Start 05/11/20 at 01:48; Stop 05/11/20 at 01:48; Status DC Lidocaine HCl (Lidocaine Pf 2% Vial) 5 ml STK-MED ONCE .ROUTE ; Start 05/11/20 at 01:48; Stop 05/11/20 at 01:48; Status DC Heparin Sodium (Porcine) 5000 unit/Sodium Chloride 505 ml @ 505 mls/hr 1X ONCE IRR Last administered on 05/11/20at 03:15; Start 05/11/20 at 02:00; Stop 05/11/20 at 02:59; Status DC Cefazolin Sodium 1 gm/Sodium Chloride 500 ml @ 500 mls/hr 1X ONCE IRR Last administered on 05/11/20at 03:13; Start 05/11/20 at 02:00; Stop 05/11/20 at 02:59; Status DC Alteplase, Recombinant (Cathflo) 4 mg 1X ONCE INT CAT ; Start 05/11/20 at 02:00; Stop 05/11/20 at 02:01; Status DC Morphine Sulfate (Morphine Sulfate) 2 mg PRN Q2HR PRN IV PAIN; Start 05/11/20 at 02:15 Oxycodone/ Acetaminophen (Percocet 5/325) 1 tab PRN Q4HRS PRN PO PAIN Last administered on 05/11/20at 08:37; Start 05/11/20 at 02:15 Cefazolin Sodium (Ancef) 1 gm Q8HRS IVP ; Start 05/11/20 at 06:00 Ondansetron HCl (Zofran) 4 mg PRN Q6HRS PRN IVP NAUSEA/VOMITING; Start 05/11/20 at 02:30 Aspirin (Alo Aspirin) 81 mg DAILYWBKFT PO ; Start 05/11/20 at 08:00 Heparin Sodium (Porcine) (Heparin Sodium) 10,000 unit STK-MED ONCE .ROUTE ; Start 05/11/20 at 02:56; Stop 05/11/20 at 02:56; Status DC Fentanyl Citrate (Fentanyl 2ml Vial) 100 mcg STK-MED ONCE .ROUTE ; Start 05/11/20 at 03:11; Stop 05/11/20 at 03:11; Status DC Vitals/I & O Vital Sign - Last 24 Hours 05/10/20 05/10/20 05/10/20 05/10/20 20:29 20:53 21:10 21:23 Temp 98.3 98.3 Pulse 98 110 108 Resp 16 B/P (MAP) 141/82 (101) 196/131 (152) 182/71 (108) Pulse Ox 98 96 93 O2 Delivery Room Air Room Air Room Air Room Air 05/10/20 05/10/20 05/10/20 05/10/20 21:53 22:04 22:25 22:59 Pulse 106 104 106 B/P (MAP) 180/78 (112) 167/85 (112) 196/84 (121) Pulse Ox 93 89 95 O2 Delivery Room Air Room Air Room Air Room Air 05/10/20 05/10/20 05/11/20 05/11/20 23:26 23:56 00:25 00:41 Pulse 106 110 113 Resp 18 B/P (MAP) 192/79 (116) 178/73 (108) 173/72 (105) Pulse Ox 90 90 97 96 O2 Delivery Room Air Room Air Room Air Room Air 05/11/20 05/11/20 05/11/20 05/11/20 00:59 01:29 01:59 07:00 Temp 96.8 96.8 Pulse 109 111 104 90 Resp 18 B/P (MAP) 189/102 (131) 174/107 (129) 141/74 (96) 141/84 (103) Pulse Ox 96 88 96 97 O2 Delivery Room Air Room Air Room Air Nasal Cannula O2 Flow Rate 2.0 05/11/20 05/11/20 08:12 08:37 Pulse Ox 96 96 Justicifation of Admission Dx: Justifications for Admission: Justification of Admission Dx: Yes LILIANA ALLEN [employer] May 11, 2020 09:46
--- NOTE | 2020-05-11 09:50 | NUR ---
SS following for discharge planning. SS reviewed pt chart and discussed with pt RN. Pt is from home and is currently on room air. Pt on IV Ancef. Pt had surgery with vascular today, 05/11/2020. SS will continue to follow for discharge planning.
[2020-05-11 11:00] VITALS: BP 103/62
--- NOTE | 2020-05-11 13:12 | PDOC1 ---
History and Physical Date of Admission Date of Admission DATE: 05/11/20 TIME: 13:01 Source Source: Chart review, Patient History of Present Illness History of Present Illness 59 year old male with sudden onset of right leg pain and numbness last night. He did suffer an injury to his right leg by cutting his leg on his deck approximately 1 week ago. He reports no pain in his left leg currently, no numbness or weakness. He has felt healthy with no chest pain or shortness of breath. He has no history of strokes. He takes no blood thinners at home. he underwent a CT angiogram of the pelvis and right lower extremity, which shows occlusion of the right common iliac and external iliac artery, which appears likely to be thrombus. There is reconstitution of the common femoral artery and runoff through his lower extremity through his posterior tibial artery, the anterior tibial artery appears occluded in the lower leg. His left iliac artery and femoral artery are widely patent. Patient indicates he fell through at the top step of a short staircase to the ground falling approximately 3 feet landing onto his feet and pulled himself back out of the staircase noticing an abrasion to his right bean area that he has been taking care with soap and water and antibiotic ointment daily. Past Medical History Past Medical History HTN, crohn's Past Surgical History Past Surgical History umbilical hernia Family History Family History reviewed and non contributory Social History Smoke: No ALCOHOL: none Drugs: None Current Medications Current Medications Current Medications Fentanyl Citrate (Fentanyl 2ml Vial) 75 mcg 1X ONCE IVP Last administered on 05/10/20at 21:10; Start 05/10/20 at 21:00; Stop 05/10/20 at 21:01; Status DC Hydromorphone HCl (Dilaudid) 1 mg 1X ONCE IV Last administered on 05/10/20at 22:04; Start 05/10/20 at 22:00; Stop 05/10/20 at 22:01; Status DC Iohexol (Omnipaque 350 Mg/ml) 75 ml 1X ONCE IV Last administered on 05/10/20at 23:12; Start 05/10/20 at 23:15; Stop 05/10/20 at 23:16; Status DC Info (CONTRAST GIVEN -- Rx MONITORING) 1 each PRN DAILY PRN MC SEE COMMENTS; Start 05/10/20 at 23:15; Stop 05/12/20 at 23:14 Heparin Sodium (Porcine) (Heparin Sodium) 9,100 unit 1X ONCE IV ; Start 05/11/20 at 00:30; Stop 05/11/20 at 00:31; Status DC Heparin Sodium/ Dextrose 250 ml @ 7 mls/hr CONT PRN IV PER PROTOCOL Last administered on 05/11/20at 00:51; Start 05/11/20 at 00:30 Heparin Sodium (Porcine) (Heparin Sodium) 3,400 unit PRN Q6HRS PRN IV FOR UFH LEVEL LESS THAN 0.2; Start 05/11/20 at 00:30 Heparin Sodium (Porcine) (Heparin Sodium) 1,700 unit PRN Q6HRS PRN IV FOR UFH LEVEL 0.2 - 0.29; Start 05/11/20 at 00:30 Hydromorphone HCl (Dilaudid) 1 mg 1X ONCE IV Last administered on 05/11/20at 00:41; Start 05/11/20 at 00:30; Stop 05/11/20 at 00:31; Status DC Ondansetron HCl (Zofran) 4 mg PRN Q8HRS PRN IV NAUSEA/VOMITING; Start 05/11/20 at 00:45; Stop 05/12/20 at 00:44 Heparin Sodium (Porcine) (Heparin Sodium) 5,000 unit 1X ONCE IV Last administered on 05/11/20at 00:48; Start 05/11/20 at 00:48; Stop 05/11/20 at 01:19; Status DC Sodium Chloride 1,000 ml @ 1,000 mls/hr 1X ONCE IV ; Start 05/11/20 at 01:30; Stop 05/11/20 at 02:29; Status DC Lidocaine HCl (Lidocaine 1% 20ml Vial) 20 ml STK-MED ONCE .ROUTE ; Start 05/11/20 at 01:40; Stop 05/11/20 at 01:41; Status DC Bupivacaine HCl (Sensorcaine Mpf 0.5%) 30 ml STK-MED ONCE .ROUTE ; Start 05/11/20 at 01:40; Stop 05/11/20 at 01:41; Status DC Gelatin (Gelfoam Size 100) 1 each STK-MED ONCE .ROUTE ; Start 05/11/20 at 01:41; Stop 05/11/20 at 01:42; Status DC Iohexol (Omnipaque 300 Mg/ml) 50 ml STK-MED ONCE .ROUTE ; Start 05/11/20 at 01:41; Stop 05/11/20 at 01:42; Status DC Cellulose (Surgicel Fibrillar 1x2) 1 each STK-MED ONCE .ROUTE ; Start 05/11/20 at 01:42; Stop 05/11/20 at 01:42; Status DC Thrombin (Thrombin Topical) 5,000 unit STK-MED ONCE .ROUTE ; Start 05/11/20 at 01:42; Stop 05/11/20 at 01:42; Status DC Papaverine HCl 60 mg STK-MED ONCE .ROUTE ; Start 05/11/20 at 01:42; Stop 05/11/20 at 01:42; Status DC Thrombin 20,000 unit STK-MED ONCE TP ; Start 05/11/20 at 01:42; Stop 05/11/20 at 01:42; Status DC Ondansetron HCl (Zofran) 4 mg PRN Q6HRS PRN IV NAUSEA/VOMITING; Start 05/11/20 at 01:45; Stop 05/12/20 at 01:44 Fentanyl Citrate (Fentanyl 2ml Vial) 25 mcg PRN Q5MIN PRN IV MILD PAIN 1-3; Start 05/11/20 at 01:45; Stop 05/12/20 at 01:44 Fentanyl Citrate (Fentanyl 2ml Vial) 50 mcg PRN Q5MIN PRN IV MODERATE TO SEVERE PAIN; Start 05/11/20 at 01:45; Stop 05/12/20 at 01:44 Morphine Sulfate (Morphine Sulfate) 1 mg PRN Q10MIN PRN IV SEVERE PAIN 7-10; Start 05/11/20 at 01:45; Stop 05/12/20 at 01:44 Ringer's Solution 1,000 ml @ 30 mls/hr Q24H IV ; Start 05/11/20 at 01:45; Stop 05/11/20 at 13:44 Lidocaine HCl (Xylocaine-Mpf 1% 2ml Vial) 2 ml PRN 1X PRN ID PRIOR TO IV START; Start 05/11/20 at 01:45; Stop 05/12/20 at 01:44 Hydromorphone HCl (Dilaudid) 0.5 mg PRN Q10MIN PRN IV SEV PAIN, Second choice; Start 05/11/20 at 01:45; Stop 05/12/20 at 01:44 Prochlorperazine Edisylate (Compazine) 5 mg PACU PRN PRN IV NAUSEA, MRX1; Start 05/11/20 at 01:45; Stop 05/12/20 at 01:44 Succinylcholine Chloride (Anectine) 200 mg STK-MED ONCE .ROUTE ; Start 05/11/20 at 01:47; Stop 05/11/20 at 01:47; Status DC Rocuronium [place] (Zemuron) 50 mg STK-MED ONCE .ROUTE ; Start 05/11/20 at 01:47; Stop 05/11/20 at 01:47; Status DC Midazolam HCl (Versed) 2 mg STK-MED ONCE .ROUTE ; Start 05/11/20 at 01:47; Stop 05/11/20 at 01:47; Status DC Dexamethasone Sodium Phosphate (Decadron) 4 mg STK-MED ONCE .ROUTE ; Start at 01:48; Stop 05/11/20 at 01:48; Status DC Propofol (Diprivan) 200 mg STK-MED ONCE IV ; Start 05/11/20 at 01:48; Stop 05/11/20 at 01:48; Status DC Lidocaine HCl (Lidocaine Pf 2% Vial) 5 ml STK-MED ONCE .ROUTE ; Start 05/11/20 at 01:48; Stop 05/11/20 at 01:48; Status DC Heparin Sodium (Porcine) 5000 unit/Sodium Chloride 505 ml @ 505 mls/hr 1X ONCE IRR Last administered on 05/11/20at 03:15; Start 05/11/20 at 02:00; Stop 05/11/20 at 02:59; Status DC Cefazolin Sodium 1 gm/Sodium Chloride 500 ml @ 500 mls/hr 1X ONCE IRR Last administered on 05/11/20at 03:13; Start 05/11/20 at 02:00; Stop 05/11/20 at 02:59; Status DC Alteplase, Recombinant (Cathflo) 4 mg 1X ONCE INT CAT ; Start 05/11/20 at 02:00; Stop 05/11/20 at 02:01; Status DC Morphine Sulfate (Morphine Sulfate) 2 mg PRN Q2HR PRN IV PAIN; Start 05/11/20 at 02:15 Oxycodone/ Acetaminophen (Percocet 5/325) 1 tab PRN Q4HRS PRN PO PAIN Last administered on 05/11/20at 08:37; Start 05/11/20 at 02:15 Cefazolin Sodium (Ancef) 1 gm Q8HRS IVP ; Start 05/11/20 at 06:00 Ondansetron HCl (Zofran) 4 mg PRN Q6HRS PRN IVP NAUSEA/VOMITING; Start 05/11/20 at 02:30 Aspirin (Alo Aspirin) 81 mg DAILYWBKFT PO ; Start 05/11/20 at 08:00; Stop 05/11/20 at 11:29; Status DC Heparin Sodium (Porcine) (Heparin Sodium) 10,000 unit STK-MED ONCE .ROUTE ; Start 05/11/20 at 02:56; Stop 05/11/20 at 02:56; Status DC Fentanyl Citrate (Fentanyl 2ml Vial) 100 mcg STK-MED ONCE .ROUTE ; Start 05/11/20 at 03:11; Stop 05/11/20 at 03:11; Status DC Info (Anti-Coagulation Monitoring By Pharmacy) 1 each PRN DAILY PRN MC SEE COMMENTS Last administered on 05/11/20at 10:17; Start 05/11/20 at 09:45 Aspirin (Ecotrin) 81 mg DAILYWBKFT PO ; Start 05/12/20 at 08:00 Allergies Allergies: Coded Allergies: No Known Drug Allergies (Unverified , 05/10/20) ROS Review of System CONSTITUTIONAL: No fever or chills EYES: No recent changes SKIN: No rash or itching CARDIOVASCULAR: No chest pain, syncope, palpitations, or edema RESPIRATORY: No SOB or cough GASTROINTESTINAL: No nausea, vomiting or abdominal pain NEUROLOGICAL: No headaches or weakness ENDOCRINE: No cold or heat intolerance GENITOURINARY: No urgency or frequency of urination MUSCULOSKELETAL: No back pain or joint pain LYMPHATICS: No enlarged lymph nodes PSYCHIATRIC: No anxiety or depression Physical Exam Physical Exam GENERAL: No apparent distress. Alert and oriented. HEENT: Head normocephalic, atraumatic. NECK: Supple LUNGS: Clear to auscultation. HEART: RRR, S1, S2 present, pulses intact ABDOMEN: Soft, positive bowel sounds. EXTREMITIES: No cyanosis or edema. NEUROLOGIC: Normal speech, normal tone PSYCHIATRIC: Normal affect, normal mood. SKIN: Physical examination was concerning for a vascular compromise as right lower extremity had areas of bruising light mottling and pedal along with posterior tibial pulses were not appreciated with palpation. Vitals Vitals Vital Signs Date Time Temp Pulse Resp B/P (MAP) Pulse Ox O2 Delivery O2 Flow Rate FiO2 05/11/20 11:43 96 2.0 05/11/20 11:00 98.0 87 18 103/62 (76) Room Air 98.0 Labs Labs Laboratory Tests Test 05/10/20 22:08 05/11/20 01:30 05/11/20 06:55 White Blood Count 8.2 x10^3/uL (4.0-11.0) 9.4 x10^3/uL (4.0-11.0) Red Blood Count 4.08 x10^6/uL (4.30-5.70) 3.86 x10^6/uL (4.30-5.70) Hemoglobin 15.0 g/dL (13.0-17.5) 14.1 g/dL (13.0-17.5) Hematocrit 42.0 % (39.0-53.0) 40.0 % (39.0-53.0) Mean Corpuscular Volume 103 fL (79-100) 104 fL (79-100) Mean Corpuscular Hemoglobin 37 pg (25-35) 36 pg (25-35) Mean Corpuscular Hemoglobin Concent 36 g/dL (31-37) 35 g/dL (31-37) Red Cell Distribution Width 13.1 % (11.5-14.5) 13.4 % (11.5-14.5) Platelet Count 256 x10^3/uL (140-400) 212 x10^3/uL (140-400) Neutrophils (%) (Auto) 66 % (31-73) Lymphocytes (%) (Auto) 27 % (24-48) Monocytes (%) (Auto) 6 % (0-9) Eosinophils (%) (Auto) 1 % (0-3) Basophils (%) (Auto) 1 % (0-3) Neutrophils # (Auto) 5.4 x10^3/uL (1.8-7.7) Lymphocytes # (Auto) 2.2 x10^3/uL (1.0-4.8) Monocytes # (Auto) 0.5 x10^3/uL (0.0-1.1) Eosinophils # (Auto) 0.0 x10^3/uL (0.0-0.7) Basophils # (Auto) 0.0 x10^3/uL (0.0-0.2) Prothrombin Time 12.8 SEC (11.7-14.0) Prothromb Time International Ratio 1.0 (0.8-1.1) Activated Partial Thromboplast Time 26 SEC (24-38) Sodium Level 138 mmol/L (136-145) 138 mmol/L (136-145) Potassium Level 3.4 mmol/L (3.5-5.1) 5.0 mmol/L (3.5-5.1) Chloride Level 101 mmol/L (98-107) 101 mmol/L (98-107) Carbon Dioxide Level 22 mmol/L (21-32) 28 mmol/L (21-32) Anion Gap 15 (6-14) 9 (6-14) Blood Urea Nitrogen 12 mg/dL (8-26) 12 mg/dL (8-26) Creatinine 1.2 mg/dL (0.7-1.3) 1.0 mg/dL (0.7-1.3) Estimated GFR (Cockcroft-Gault) 62.2 76.7 BUN/Creatinine Ratio 10 (6-20) Glucose Level 193 mg/dL (70-99) 148 mg/dL (70-99) Calcium Level 8.9 mg/dL (8.5-10.1) 8.3 mg/dL (8.5-10.1) Total Bilirubin 0.1 mg/dL (0.2-1.0) Aspartate Amino Transf (AST/SGOT) 34 U/L (15-37) Alanine Aminotransferase (ALT/SGPT) 40 U/L (16-63) Alkaline Phosphatase 78 U/L (46-116) Total Protein 6.9 g/dL (6.4-8.2) Albumin 3.2 g/dL (3.4-5.0) Albumin/Globulin Ratio 0.9 (1.0-1.7) Urine Collection Type Unknown Urine Color Yellow Urine Clarity Clear Urine pH 5.5 (<5.0-8.0) Urine Specific [place] >=1.030 (1.000-1.030) Urine Protein Negative mg/dL (NEG-TRACE) Urine Glucose (UA) >=1000 mg/dL (NEG) Urine Ketones (Stick) Negative mg/dL (NEG) Urine Blood Negative (NEG) Urine Nitrite Negative (NEG) Urine Bilirubin Negative (NEG) Urine Urobilinogen Dipstick 0.2 mg/dL (0.2 mg/dL) Urine Leukocyte Esterase Negative (NEG) Urine RBC 0 /HPF (0-2) Urine WBC Occ /HPF (0-4) Urine Squamous Epithelial Cells Few /LPF Urine Bacteria 0 /HPF (0-FEW) Urine Hyaline Casts Few /HPF Urine Mucus Slight /LPF Lactic Acid Level 3.7 mmol/L (0.4-2.0) Troponin I Quantitative 0.021 ng/mL (0.000-0.055) Laboratory Tests Test 05/10/20 22:08 05/11/20 01:30 05/11/20 06:55 White Blood Count 8.2 x10^3/uL (4.0-11.0) 9.4 x10^3/uL (4.0-11.0) Red Blood Count 4.08 x10^6/uL (4.30-5.70) 3.86 x10^6/uL (4.30-5.70) Hemoglobin 15.0 g/dL (13.0-17.5) 14.1 g/dL (13.0-17.5) Hematocrit 42.0 % (39.0-53.0) 40.0 % (39.0-53.0) Mean Corpuscular Volume 103 fL (79-100) 104 fL (79-100) Mean Corpuscular Hemoglobin 37 pg (25-35) 36 pg (25-35) Mean Corpuscular Hemoglobin Concent 36 g/dL (31-37) 35 g/dL (31-37) Red Cell Distribution Width 13.1 % (11.5-14.5) 13.4 % (11.5-14.5) Platelet Count 256 x10^3/uL (140-400) 212 x10^3/uL (140-400) Neutrophils (%) (Auto) 66 % (31-73) Lymphocytes (%) (Auto) 27 % (24-48) Monocytes (%) (Auto) 6 % (0-9) Eosinophils (%) (Auto) 1 % (0-3) Basophils (%) (Auto) 1 % (0-3) Neutrophils # (Auto) 5.4 x10^3/uL (1.8-7.7) Lymphocytes # (Auto) 2.2 x10^3/uL (1.0-4.8) Monocytes # (Auto) 0.5 x10^3/uL (0.0-1.1) Eosinophils # (Auto) 0.0 x10^3/uL (0.0-0.7) Basophils # (Auto) 0.0 x10^3/uL (0.0-0.2) Prothrombin Time 12.8 SEC (11.7-14.0) Prothromb Time International Ratio 1.0 (0.8-1.1) Activated Partial Thromboplast Time 26 SEC (24-38) Sodium Level 138 mmol/L (136-145) 138 mmol/L (136-145) Potassium Level 3.4 mmol/L (3.5-5.1) 5.0 mmol/L (3.5-5.1) Chloride Level 101 mmol/L (98-107) 101 mmol/L (98-107) Carbon Dioxide Level 22 mmol/L (21-32) 28 mmol/L (21-32) Anion Gap 15 (6-14) 9 (6-14) Blood Urea Nitrogen 12 mg/dL (8-26) 12 mg/dL (8-26) Creatinine 1.2 mg/dL (0.7-1.3) 1.0 mg/dL (0.7-1.3) Estimated GFR (Cockcroft-Gault) 62.2 76.7 BUN/Creatinine Ratio 10 (6-20) Glucose Level 193 mg/dL (70-99) 148 mg/dL (70-99) Calcium Level 8.9 mg/dL (8.5-10.1) 8.3 mg/dL (8.5-10.1) Total Bilirubin 0.1 mg/dL (0.2-1.0) Aspartate Amino Transf (AST/SGOT) 34 U/L (15-37) Alanine Aminotransferase (ALT/SGPT) 40 U/L (16-63) Alkaline Phosphatase 78 U/L (46-116) Total Protein 6.9 g/dL (6.4-8.2) Albumin 3.2 g/dL (3.4-5.0) Albumin/Globulin Ratio 0.9 (1.0-1.7) Urine Collection Type Unknown Urine Color Yellow Urine Clarity Clear Urine pH 5.5 (<5.0-8.0) Urine Specific [place] >=1.030 (1.000-1.030) Urine Protein Negative mg/dL (NEG-TRACE) Urine Glucose (UA) >=1000 mg/dL (NEG) Urine Ketones (Stick) Negative mg/dL (NEG) Urine Blood Negative (NEG) Urine Nitrite Negative (NEG) Urine Bilirubin Negative (NEG) Urine Urobilinogen Dipstick 0.2 mg/dL (0.2 mg/dL) Urine Leukocyte Esterase Negative (NEG) Urine RBC 0 /HPF (0-2) Urine WBC Occ /HPF (0-4) Urine Squamous Epithelial Cells Few /LPF Urine Bacteria 0 /HPF (0-FEW) Urine Hyaline Casts Few /HPF Urine Mucus Slight /LPF Lactic Acid Level 3.7 mmol/L (0.4-2.0) Troponin I Quantitative 0.021 ng/mL (0.000-0.055) VTE Prophylaxis Ordered VTE Prophylaxis Devices: Yes VTE Pharmacological Prophylaxi: Yes Assessment/Plan Assessment/Plan A/P Right lower extremity acute limb-threatening ischemia secondary to thrombosis of his right iliac artery s/p Right common femoral artery cutdown with thrombectomy of the right iliac, Right common femoral artery and profunda artery endarterectomy, Right calf 4-compartment fasciotomies through an open medial and lateral incision. 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 plan CTA of abdomen and pelvis heparin drip cares consult dressing changes per sx daily ASA full code Justicifation of Admission Dx: Justifications for Admission: Justification of Admission Dx: Yes ANGELICA JONAS MD May 11, 2020 13:12
[2020-05-11] MEDS ORDERED: LISI10TA2 PO (15:27)
[2020-05-11] MEDS ORDERED: LISI-334 PO (15:44)
[2020-05-11] MEDS ORDERED: MELO15TA23 PO (15:44)
[2020-05-11] MEDS ORDERED: SILD50TA PO (15:44)
[2020-05-11] MEDS ORDERED: TRAZ-118 PO (15:44)
[2020-05-11] MEDS ORDERED: ALBU2.5V8 IH (15:44)
[2020-05-11] MEDS ORDERED: CYCL10TA2 PO (15:44)
[2020-05-11] MEDS: IV NORMAL SALINE 1000ML BAG 1,000 ML IV SCH ×2 (16:35→21:15)
[2020-05-11 19:33] VITALS: BP 102/47
[2020-05-11] MEDS: CYCLOBENZAPRINE 10 MG TABLET. PO SCH (21:12)
[2020-05-11] MEDS: LACTOBACILLUS RHAMNOSUS GG 1 CAPSULE. PO SCH (21:12)
[2020-05-11] MEDS: traZODone 50 MG TABLET. PO SCH (21:13)
[2020-05-11 23:33] VITALS: BP 106/51
[2020-05-12 03:31] VITALS: BP 106/49
[2020-05-12] MEDS: oxyCODONE/APAP 5/325 1 TAB TABLET PO PRN ×4 (06:22→22:57)
[2020-05-12] MEDS: ceFAZolin SODIUM IV Push 1 GM VIAL. IVP SCH ×3 (06:22→20:14)
[2020-05-12 06:25] LABS: BASO % 1 % (0-3); EOS % 0 % (0-3); HEMATOCRIT 34.3 % (39.0-53.0); LYMPH # 3.3 x10^3/uL (1.0-4.8); LYMPH % 32 % (24-48); MEAN CORPUSCULAR HEMOGLOBIN 36 pg (25-35); MEAN CORPUSCULAR HGB CONC 35 g/dL (31-37); MEAN CORPUSCULAR VOLUME 104 fL (79-100); MONO # 0.6 x10^3/uL (0.0-1.1); MONO % 6 % (0-9); NEUT # 6.4 x10^3/uL (1.8-7.7); NEUT % 62 % (31-73); PLATELET COUNT 182 x10^3/uL (140-400); RED BLOOD COUNT 3.31 x10^6/uL (4.30-5.70); RED CELL DISTRIBUTION WIDTH 13.3 % (11.5-14.5); WHITE BLOOD COUNT 10.4 x10^3/uL (4.0-11.0)
[2020-05-12 06:38] LABS: ALBUMIN 2.3 g/dL (3.4-5.0); ALBUMIN/GLOBULIN RATIO 0.8 (1.0-1.7); CALCIUM 7.7 mg/dL (8.5-10.1); GFR 76.7; POTASSIUM 3.9 mmol/L (3.5-5.1); TOTAL BILIRUBIN 0.3 mg/dL (0.2-1.0); TOTAL PROTEIN 5.3 g/dL (6.4-8.2)
[2020-05-12 07:00] VITALS: BP 124/70
[2020-05-12] MEDS: LACTOBACILLUS RHAMNOSUS GG 1 CAPSULE. PO SCH ×2 (08:53→20:15)
[2020-05-12] MEDS: ASPIRIN ENTERIC COATED 81 MG TABLET.DR. PO SCH (08:53)
[2020-05-12] MEDS: CYCLOBENZAPRINE 10 MG TABLET. PO SCH ×3 (08:54→20:15)
[2020-05-12] MEDS: LISINOPRIL 20 MG TABLET PO SCH (08:54)
[2020-05-12] MEDS: MORPHINE SULFATE 2 MG/ML VIAL. IV PRN (09:04)
--- NOTE | 2020-05-12 09:40 | PDOC ---
PROGRESS NOTES Subjective Subjective I'm doing alright. I have some stinging in my right groin and my right lower leg hurts but I can move my foot. He is post op day #1 of surgery from: 1. Right common femoral artery cutdown with thrombectomy of the right iliac artery. 2. Right common femoral artery and profunda artery endarterectomy. 3. Right calf 4-compartment fasciotomies through an open medial and lateral incision. He denies chest pain and shortness of breath. He denies fever and chills. He would prefer to keep his Dun[place] catheter today until he gains a little bit more mobility. His white count today is 10.4, hemoglobin 12, hematocrit 34.3, platelet count 182, his lactic acid today was 1.5 which is down from 1.9 and from the high of 4.9 preoperatively. Objective Objective Vital Signs Date Time Temp Pulse Resp B/P (MAP) Pulse Ox O2 Delivery O2 Flow Rate FiO2 05/12/20 09:04 18 90 Room Air 2.0 05/12/20 08:54 81 124/70 05/12/20 07:00 97.5 97.5 Intake and Output 05/12/20 06:59 Intake Total 2075 ml Output Total 3475 ml Balance -1400 ml Intake Oral 850 ml Other 1225 ml Output Urine Total 3475 ml Physical Exam Physical Exam His vital signs are stable. He is in no acute distress, at least until I take off his dressings for his fasciotomy wounds. The fasciotomy dressings were removed. His muscle tissue is beefy red and not swollen. There is no excessive bleeding from the wound sites. The sites were redressed with saline moistened gauze, ABD pads and Kerlix. His right foot remains puffy but he can move both feet up and down and wiggle his toes. His feet are warm bilaterally. He continues to have diffuse bruising in his right foot. His right groin Sudha VAC remains in place with good suction. Extremities: No cyanosis General: Alert, Cooperative HEENT: Atraumatic Neuro: Normal speech Skin: No rashes Plan Plan of Care 59-year-old gentleman who is now status post thrombectomy of the right iliac artery with Right common femoral artery and profunda artery endarterectomy and Right calf 4-compartment fasciotomies through an open medial and lateral incision. His right lower leg is quite painful post dressing change. He is resting comfortably in bed following pain medication administration. He can move both feet. He has excellent Doppler flow in his right foot. Plan: His CTA of the abdomen and pelvis is scheduled for today. Dr. Decker wants to reevaluate his right iliac system in case additional intervention is required. He may begin his weight-based heparin protocol, no bolus today. Cardiology has been requested to consult and look for a potential embolic source for his iliac and femoral occlusion. An echo was also ordered, but both of these orders were placed when [employer] was down. Will reenter them today. His open fasciotomy dressings were changed with a saline wet-to-dry daily dressing. Because he does not have excessive muscular swelling in his right lower leg, we may be able to surgically close his fasciotomy sites. Will review with the vascular surgeon to determine whether or not to place him on the surgery schedule for Sunday. I reiterated to him that smoking cessation is an absolute must. Continue daily aspirin. Follow-up tomorrow for dressing changes and reevaluation. Comment Review of Relevant I have reviewed the following items [place] (where applicable) has been applied. Labs Laboratory Tests Test 05/10/20 22:08 05/11/20 01:30 05/11/20 06:55 05/11/20 12:10 White Blood Count 8.2 x10^3/uL (4.0-11.0) 9.4 x10^3/uL (4.0-11.0) Red Blood Count 4.08 x10^6/uL (4.30-5.70) 3.86 x10^6/uL (4.30-5.70) Hemoglobin 15.0 g/dL (13.0-17.5) 14.1 g/dL (13.0-17.5) Hematocrit 42.0 % (39.0-53.0) 40.0 % (39.0-53.0) Mean Corpuscular Volume 103 fL (79-100) 104 fL (79-100) Mean Corpuscular Hemoglobin 37 pg (25-35) 36 pg (25-35) Mean Corpuscular Hemoglobin Concent 36 g/dL (31-37) 35 g/dL (31-37) Red Cell Distribution Width 13.1 % (11.5-14.5) 13.4 % (11.5-14.5) Platelet Count 256 x10^3/uL (140-400) 212 x10^3/uL (140-400) Neutrophils (%) (Auto) 66 % (31-73) Lymphocytes (%) (Auto) 27 % (24-48) Monocytes (%) (Auto) 6 % (0-9) Eosinophils (%) (Auto) 1 % (0-3) Basophils (%) (Auto) 1 % (0-3) Neutrophils # (Auto) 5.4 x10^3/uL (1.8-7.7) Lymphocytes # (Auto) 2.2 x10^3/uL (1.0-4.8) Monocytes # (Auto) 0.5 x10^3/uL (0.0-1.1) Eosinophils # (Auto) 0.0 x10^3/uL (0.0-0.7) Basophils # (Auto) 0.0 x10^3/uL (0.0-0.2) Prothrombin Time 12.8 SEC (11.7-14.0) Prothromb Time International Ratio 1.0 (0.8-1.1) Activated Partial Thromboplast Time 26 SEC (24-38) Sodium Level 138 mmol/L (136-145) 138 mmol/L (136-145) Potassium Level 3.4 mmol/L (3.5-5.1) 5.0 mmol/L (3.5-5.1) Chloride Level 101 mmol/L (98-107) 101 mmol/L (98-107) Carbon Dioxide Level 22 mmol/L (21-32) 28 mmol/L (21-32) Anion Gap 15 (6-14) 9 (6-14) Blood Urea Nitrogen 12 mg/dL (8-26) 12 mg/dL (8-26) Creatinine 1.2 mg/dL (0.7-1.3) 1.0 mg/dL (0.7-1.3) Estimated GFR (Cockcroft-Gault) 62.2 76.7 BUN/Creatinine Ratio 10 (6-20) Glucose Level 193 mg/dL (70-99) 148 mg/dL (70-99) Calcium Level 8.9 mg/dL (8.5-10.1) 8.3 mg/dL (8.5-10.1) Total Bilirubin 0.1 mg/dL (0.2-1.0) Aspartate Amino Transf (AST/SGOT) 34 U/L (15-37) Alanine Aminotransferase (ALT/SGPT) 40 U/L (16-63) Alkaline Phosphatase 78 U/L (46-116) Total Protein 6.9 g/dL (6.4-8.2) Albumin 3.2 g/dL (3.4-5.0) Albumin/Globulin Ratio 0.9 (1.0-1.7) Urine Collection Type Unknown Urine Color Yellow Urine Clarity Clear Urine pH 5.5 (<5.0-8.0) Urine Specific [place] >=1.030 (1.000-1.030) Urine Protein Negative mg/dL (NEG-TRACE) Urine Glucose (UA) >=1000 mg/dL (NEG) Urine Ketones (Stick) Negative mg/dL (NEG) Urine Blood Negative (NEG) Urine Nitrite Negative (NEG) Urine Bilirubin Negative (NEG) Urine Urobilinogen Dipstick 0.2 mg/dL (0.2 mg/dL) Urine Leukocyte Esterase Negative (NEG) Urine RBC 0 /HPF (0-2) Urine WBC Occ /HPF (0-4) Urine Squamous Epithelial Cells Few /LPF Urine Bacteria 0 /HPF (0-FEW) Urine Hyaline Casts Few /HPF Urine Mucus Slight /LPF Lactic Acid Level 3.7 mmol/L (0.4-2.0) 4.9 mmol/L (0.4-2.0) Troponin I Quantitative 0.021 ng/mL (0.000-0.055) Test 05/11/20 18:30 05/11/20 21:45 05/12/20 06:00 Lactic Acid Level 4.7 mmol/L (0.4-2.0) 1.9 mmol/L (0.4-2.0) 1.5 mmol/L (0.4-2.0) White Blood Count 10.4 x10^3/uL (4.0-11.0) Red Blood Count 3.31 x10^6/uL (4.30-5.70) Hemoglobin 12.0 g/dL (13.0-17.5) Hematocrit 34.3 % (39.0-53.0) Mean Corpuscular Volume 104 fL (79-100) Mean Corpuscular Hemoglobin 36 pg (25-35) Mean Corpuscular Hemoglobin Concent 35 g/dL (31-37) Red Cell Distribution Width 13.3 % (11.5-14.5) Platelet Count 182 x10^3/uL (140-400) Neutrophils (%) (Auto) 62 % (31-73) Lymphocytes (%) (Auto) 32 % (24-48) Monocytes (%) (Auto) 6 % (0-9) Eosinophils (%) (Auto) 0 % (0-3) Basophils (%) (Auto) 1 % (0-3) Neutrophils # (Auto) 6.4 x10^3/uL (1.8-7.7) Lymphocytes # (Auto) 3.3 x10^3/uL (1.0-4.8) Monocytes # (Auto) 0.6 x10^3/uL (0.0-1.1) Eosinophils # (Auto) 0.0 x10^3/uL (0.0-0.7) Basophils # (Auto) 0.0 x10^3/uL (0.0-0.2) Sodium Level 139 mmol/L (136-145) Potassium Level 3.9 mmol/L (3.5-5.1) Chloride Level 104 mmol/L (98-107) Carbon Dioxide Level 31 mmol/L (21-32) Anion Gap 4 (6-14) Blood Urea Nitrogen 12 mg/dL (8-26) Creatinine 1.0 mg/dL (0.7-1.3) Estimated GFR (Cockcroft-Gault) 76.7 BUN/Creatinine Ratio 12 (6-20) Glucose Level 124 mg/dL (70-99) Calcium Level 7.7 mg/dL (8.5-10.1) Total Bilirubin 0.3 mg/dL (0.2-1.0) Aspartate Amino Transf (AST/SGOT) 97 U/L (15-37) Alanine Aminotransferase (ALT/SGPT) 41 U/L (16-63) Alkaline Phosphatase 52 U/L (46-116) Total Protein 5.3 g/dL (6.4-8.2) Albumin 2.3 g/dL (3.4-5.0) Albumin/Globulin Ratio 0.8 (1.0-1.7) Laboratory Tests Test 05/11/20 12:10 05/11/20 18:30 05/11/20 21:45 05/12/20 06:00 Lactic Acid Level 4.9 mmol/L (0.4-2.0) 4.7 mmol/L (0.4-2.0) 1.9 mmol/L (0.4-2.0) 1.5 mmol/L (0.4-2.0) White Blood Count 10.4 x10^3/uL (4.0-11.0) Red Blood Count 3.31 x10^6/uL (4.30-5.70) Hemoglobin 12.0 g/dL (13.0-17.5) Hematocrit 34.3 % (39.0-53.0) Mean Corpuscular Volume 104 fL (79-100) Mean Corpuscular Hemoglobin 36 pg (25-35) Mean Corpuscular Hemoglobin Concent 35 g/dL (31-37) Red Cell Distribution Width 13.3 % (11.5-14.5) Platelet Count 182 x10^3/uL (140-400) Neutrophils (%) (Auto) 62 % (31-73) Lymphocytes (%) (Auto) 32 % (24-48) Monocytes (%) (Auto) 6 % (0-9) Eosinophils (%) (Auto) 0 % (0-3) Basophils (%) (Auto) 1 % (0-3) Neutrophils # (Auto) 6.4 x10^3/uL (1.8-7.7) Lymphocytes # (Auto) 3.3 x10^3/uL (1.0-4.8) Monocytes # (Auto) 0.6 x10^3/uL (0.0-1.1) Eosinophils # (Auto) 0.0 x10^3/uL (0.0-0.7) Basophils # (Auto) 0.0 x10^3/uL (0.0-0.2) Sodium Level 139 mmol/L (136-145) Potassium Level 3.9 mmol/L (3.5-5.1) Chloride Level 104 mmol/L (98-107) Carbon Dioxide Level 31 mmol/L (21-32) Anion Gap 4 (6-14) Blood Urea Nitrogen 12 mg/dL (8-26) Creatinine 1.0 mg/dL (0.7-1.3) Estimated GFR (Cockcroft-Gault) 76.7 BUN/Creatinine Ratio 12 (6-20) Glucose Level 124 mg/dL (70-99) Calcium Level 7.7 mg/dL (8.5-10.1) Total Bilirubin 0.3 mg/dL (0.2-1.0) Aspartate Amino Transf (AST/SGOT) 97 U/L (15-37) Alanine Aminotransferase (ALT/SGPT) 41 U/L (16-63) Alkaline Phosphatase 52 U/L (46-116) Total Protein 5.3 g/dL (6.4-8.2) Albumin 2.3 g/dL (3.4-5.0) Albumin/Globulin Ratio 0.8 (1.0-1.7) Medications Current Medications Fentanyl Citrate (Fentanyl 2ml Vial) 75 mcg 1X ONCE IVP Last administered on 05/10/20at 21:10; Start 05/10/20 at 21:00; Stop 05/10/20 at 21:01; Status DC Hydromorphone HCl (Dilaudid) 1 mg 1X ONCE IV Last administered on 05/10/20at 22:04; Start 05/10/20 at 22:00; Stop 05/10/20 at 22:01; Status DC Iohexol (Omnipaque 350 Mg/ml) 75 ml 1X ONCE IV Last administered on 05/10/20at 23:12; Start 05/10/20 at 23:15; Stop 05/10/20 at 23:16; Status DC Info (CONTRAST GIVEN -- Rx MONITORING) 1 each PRN DAILY PRN MC SEE COMMENTS; Start 05/10/20 at 23:15; Stop 05/12/20 at 23:14 Heparin Sodium (Porcine) (Heparin Sodium) 9,100 unit 1X ONCE IV ; Start 05/11/20 at 00:30; Stop 05/11/20 at 00:31; Status DC Heparin Sodium/ Dextrose 250 ml @ 7 mls/hr CONT PRN IV PER PROTOCOL Last administered on 05/11/20at 00:51; Start 05/11/20 at 00:30 Heparin Sodium (Porcine) (Heparin Sodium) 3,400 unit PRN Q6HRS PRN IV FOR UFH LEVEL LESS THAN 0.2; Start 05/11/20 at 00:30 Heparin Sodium (Porcine) (Heparin Sodium) 1,700 unit PRN Q6HRS PRN IV FOR UFH LEVEL 0.2 - 0.29; Start 05/11/20 at 00:30 Hydromorphone HCl (Dilaudid) 1 mg 1X ONCE IV Last administered on 05/11/20at 00:41; Start 05/11/20 at 00:30; Stop 05/11/20 at 00:31; Status DC Ondansetron HCl (Zofran) 4 mg PRN Q8HRS PRN IV NAUSEA/VOMITING; Start 05/11/20 at 00:45; Stop 05/12/20 at 00:45; Status DC Heparin Sodium (Porcine) (Heparin Sodium) 5,000 unit 1X ONCE IV Last administered on 05/11/20at 00:48; Start 05/11/20 at 00:48; Stop 05/11/20 at 01:19; Status DC Sodium Chloride 1,000 ml @ 1,000 mls/hr 1X ONCE IV ; Start 05/11/20 at 01:30; Stop 05/11/20 at 02:29; Status DC Lidocaine HCl (Lidocaine 1% 20ml Vial) 20 ml STK-MED ONCE .ROUTE ; Start 05/11/20 at 01:40; Stop 05/11/20 at 01:41; Status DC Bupivacaine HCl (Sensorcaine Mpf 0.5%) 30 ml STK-MED ONCE .ROUTE ; Start 05/11/20 at 01:40; Stop 05/11/20 at 01:41; Status DC Gelatin (Gelfoam Size 100) 1 each STK-MED ONCE .ROUTE ; Start 05/11/20 at 01:41; Stop 05/11/20 at 01:42; Status DC Iohexol (Omnipaque 300 Mg/ml) 50 ml STK-MED ONCE .ROUTE ; Start 05/11/20 at 01:41; Stop 05/11/20 at 01:42; Status DC Cellulose (Surgicel Fibrillar 1x2) 1 each STK-MED ONCE .ROUTE Last administered on 05/11/20at 15:49; Start 05/11/20 at 01:42; Stop 05/11/20 at 01:42; Status DC Thrombin (Thrombin Topical) 5,000 unit STK-MED ONCE .ROUTE ; Start 05/11/20 at 01:42; Stop 05/11/20 at 01:42; Status DC Papaverine HCl 60 mg STK-MED ONCE .ROUTE ; Start 05/11/20 at 01:42; Stop 05/11/20 at 01:42; Status DC Thrombin 20,000 unit STK-MED ONCE TP ; Start 05/11/20 at 01:42; Stop 05/11/20 at 01:42; Status DC Ondansetron HCl (Zofran) 4 mg PRN Q6HRS PRN IV NAUSEA/VOMITING; Start 05/11/20 at 01:45; Stop 05/12/20 at 01:44; Status DC Fentanyl Citrate (Fentanyl 2ml Vial) 25 mcg PRN Q5MIN PRN IV MILD PAIN 1-3; Start 05/11/20 at 01:45; Stop 05/12/20 at 01:44; Status DC Fentanyl Citrate (Fentanyl 2ml Vial) 50 mcg PRN Q5MIN PRN IV MODERATE TO SEVERE PAIN; Start 05/11/20 at 01:45; Stop 05/12/20 at 01:44; Status DC Morphine Sulfate (Morphine Sulfate) 1 mg PRN Q10MIN PRN IV SEVERE PAIN 7-10; Start 05/11/20 at 01:45; Stop 05/12/20 at 01:44; Status DC Ringer's Solution 1,000 ml @ 30 mls/hr Q24H IV ; Start 05/11/20 at 01:45; Stop 05/11/20 at 13:44; Status DC Lidocaine HCl (Xylocaine-Mpf 1% 2ml Vial) 2 ml PRN 1X PRN ID PRIOR TO IV START; Start 05/11/20 at 01:45; Stop 05/12/20 at 01:44; Status DC Hydromorphone HCl (Dilaudid) 0.5 mg PRN Q10MIN PRN IV SEV PAIN, Second choice; Start 05/11/20 at 01:45; Stop 05/12/20 at 01:44; Status DC Prochlorperazine Edisylate (Compazine) 5 mg PACU PRN PRN IV NAUSEA, MRX1; Start 05/11/20 at 01:45; Stop 05/12/20 at 01:44; Status DC Succinylcholine Chloride (Anectine) 200 mg STK-MED ONCE .ROUTE ; Start 05/11/20 at 01:47; Stop 05/11/20 at 01:47; Status DC Rocuronium [place] (Zemuron) 50 mg STK-MED ONCE .ROUTE ; Start 05/11/20 at 01:47; Stop 05/11/20 at 01:47; Status DC Midazolam HCl (Versed) 2 mg STK-MED ONCE .ROUTE ; Start 05/11/20 at 01:47; Stop 05/11/20 at 01:47; Status DC Dexamethasone Sodium Phosphate (Decadron) 4 mg STK-MED ONCE .ROUTE ; Start 05/11/20 at 01:48; Stop 05/11/20 at 01:48; Status DC Propofol (Diprivan) 200 mg STK-MED ONCE IV ; Start 05/11/20 at 01:48; Stop 05/11/20 at 01:48; Status DC Lidocaine HCl (Lidocaine Pf 2% Vial) 5 ml STK-MED ONCE .ROUTE ; Start 05/11/20 at 01:48; Stop 05/11/20 at 01:48; Status DC Heparin Sodium (Porcine) 5000 unit/Sodium Chloride 505 ml @ 505 mls/hr 1X ONCE IRR Last administered on 05/11/20at 03:15; Start 05/11/20 at 02:00; Stop at 02:59; Status DC Cefazolin Sodium 1 gm/Sodium Chloride 500 ml @ 500 mls/hr 1X ONCE IRR Last administered on 05/11/20at 03:13; Start 05/11/20 at 02:00; Stop 05/11/20 at 02:59; Status DC Alteplase, Recombinant (Cathflo) 4 mg 1X ONCE INT CAT ; Start 05/11/20 at 02:00; Stop 05/11/20 at 02:01; Status DC Morphine Sulfate (Morphine Sulfate) 2 mg PRN Q2HR PRN IV PAIN Last administered on 05/12/20at 09:04; Start 05/11/20 at 02:15 Oxycodone/ Acetaminophen (Percocet 5/325) 1 tab PRN Q4HRS PRN PO PAIN Last administered on 05/12/20at 08:54; Start 05/11/20 at 02:15 Cefazolin Sodium (Ancef) 1 gm Q8HRS IVP Last administered on 05/12/20at 06:22; Start 05/11/20 at 06:00 Ondansetron HCl (Zofran) 4 mg PRN Q6HRS PRN IVP NAUSEA/VOMITING; Start 05/11/20 at 02:30 Aspirin (Alo Aspirin) 81 mg DAILYWBKFT PO ; Start 05/11/20 at 08:00; Stop 05/11/20 at 11:29; Status DC Heparin Sodium (Porcine) (Heparin Sodium) 10,000 unit STK-MED ONCE .ROUTE ; Start 05/11/20 at 02:56; Stop 05/11/20 at 02:56; Status DC Fentanyl Citrate (Fentanyl 2ml Vial) 100 mcg STK-MED ONCE .ROUTE ; Start 05/11/20 at 03:11; Stop 05/11/20 at 03:11; Status DC Info (Anti-Coagulation Monitoring By Pharmacy) 1 each PRN DAILY PRN MC SEE COMMENTS Last administered on 05/11/20at 10:17; Start 05/11/20 at 09:45 Aspirin (Ecotrin) 81 mg DAILYWBKFT PO Last administered on 05/12/20at 08:53; Start 05/12/20 at 08:00 Sodium Bicarbonate (Sodium Bicarb Adult 8.4% Syr) 50 meq STK-MED ONCE .ROUTE ; Start 05/11/20 at 04:02; Stop 05/11/20 at 13:26; Status DC Fentanyl Citrate (Fentanyl 2ml Vial) 100 mcg STK-MED ONCE .ROUTE ; Start 05/11/20 at 05:27; Stop 05/11/20 at 13:26; Status DC Lactobacillus Rhamnosus (Culturelle) 1 cap BID PO Last administered on 05/12/20at 08:53; Start 05/11/20 at 21:00 Sodium Chloride 1,000 ml @ 75 mls/hr [id number] IV Last administered on 05/11/20at 21:15; Start 05/11/20 at 13:30 Cyclobenzaprine HCl (Flexeril) 10 mg TID PO Last administered on 05/12/20at 08:54; Start 05/11/20 at 21:00 Lisinopril (Prinivil) 20 mg DAILY PO Last administered on 05/12/20at 08:54; Start 05/12/20 at 09:00 Trazodone HCl (Desyrel) 50 mg QHS PO Last administered on 05/11/20at 21:13; Start 05/11/20 at 21:00 Active Scripts Active Reported Viagra (Sildenafil Citrate) 50 Mg Tablet 1 Tab PO UD Cyclobenzaprine Hcl 10 Mg Tablet 1 Tab PO TID Proair Hfa Inhaler (Albuterol Sulfate) 8.5 Gm Hfa.aer.ad 2 Puff IH PRN Q4-6HRS PRN 21 Days Trazodone Hcl 50 Mg Tablet 1 Tab PO QHS Meloxicam 15 Mg Tablet 1 Tab PO DAILY 30 Days Lisinopril 20 Mg Tablet 1 Tab PO DAILY Vitals/I & O Vital Sign - Last 24 Hours 05/11/20 05/11/20 05/11/20 05/11/20 11:00 11:27 11:43 11:43 Temp 98.0 98.0 Pulse 87 Resp 18 B/P (MAP) 103/62 (76) Pulse Ox 94 96 96 96 O2 Delivery Room Air O2 Flow Rate 2.0 2.0 2.0 05/11/20 05/11/20 05/11/20 05/11/20 14:28 16:25 19:33 20:00 Temp 98.4 98.4 Pulse 95 Resp 16 B/P (MAP) 102/47 (65) Pulse Ox 96 96 92 O2 Delivery Room Air Room Air O2 Flow Rate 2.0 2.0 05/11/20 05/11/20 05/11/20 05/12/20 21:12 22:12 23:33 03:31 Temp 97.6 97.6 97.6 97.6 Pulse 73 80 Resp 18 18 16 16 B/P (MAP) 106/51 (69) 106/49 (68) Pulse Ox 92 92 91 90 O2 Delivery Room Air Room Air Room Air Room Air O2 Flow Rate 2.0 2.0 05/12/20 05/12/20 05/12/20 05/12/20 06:22 07:00 07:22 08:54 Temp 97.5 97.5 Pulse 81 Resp 18 20 20 18 B/P (MAP) 124/70 (88) Pulse Ox 90 90 90 90 O2 Delivery Room Air Room Air Room Air Room Air O2 Flow Rate 2.0 2.0 2.0 05/12/20 05/12/20 08:54 09:04 Pulse 81 Resp 18 B/P (MAP) 124/70 Pulse Ox 90 O2 Delivery Room Air O2 Flow Rate 2.0 Intake and Output 05/11/20 05/11/20 05/12/20 14:59 22:59 06:59 Intake Total 150 ml 240 ml 1685 ml Output Total 3475 ml Balance 150 ml 240 ml -1790 ml Justicifation of Admission Dx: Justifications for Admission: Justification of Admission Dx: Yes LILIANA ALLEN HEM MARKER May 12, 2020 09:40
[2020-05-12] MEDS ORDERED: CONTRAST GIVEN. MC PRN (10:00)
[2020-05-12] MEDS ORDERED: IOHEXOL 350 MG/ML 100 ML VIAL. IV ONE (10:00)
[2020-05-12 11:00] VITALS: BP 109/63
--- NOTE | 2020-05-12 11:28 | NUR ---
SS following up with discharge planning. SS reviewed pt chart and discussed with pt RN. Pt is currently on room air. Pt had surgery on 05/11/2020. Per RN, pt will either have surgery on 05/12/2020 to close or will have wound vac. Pt may need home healthcare. SS will continue to follow for discharge planning. Addendum: 05/12/20 at 1133 by BHAVNA [place] CORRECTION TO PREVIOUS NOTE: Per RN, pt will either have surgery on 05/13/2020 to close or will have wound vac.
[2020-05-12] MEDS ORDERED: HEPARIN for IV BOLUS 10,000 UNIT/10 ML VIAL. IV PRN (11:30)
--- NOTE | 2020-05-12 11:52 | PDOC2 ---
CARDIAC CONSULT DATE OF CONSULT Date of Consult DATE: 05/12/20 TIME: 11:35 REASON FOR CONSULT Reason for Consult: assess for cardiac etiology of arterial thrombus REFERRING PHYSICIAN Referring Physician: Latia Baca APRN SOURCE Source: Chart review, Patient HISTORY OF PRESENT ILLNESS HISTORY OF PRESENT ILLNESS This is a 59 yo male who presented secondary to acute on set of right leg pain, numbness, and tingling. Patient had injury to right leg one week age. Reports cutting his leg on deck. Has some bruising and excoriations. Cause some discomfort, but no numbness or significant pain. He underwent a CTA of the pe lvis and right lower extremity, which showed occlusion of the right common iliac and external iliac artery, which appeared to be a thrombus. Due to limb threatening ischemia, patient went for surgical revascularizaiton. Patient underwent right common femoral artery cutdown with thrombectomy of the right iliac artery, right common femoral artery and profunda artery endarterectomy, and right calf 4-compartment fasciotomies. Consult for cardiology to assess for cardiac etiology of arterial thrombus. PAST MEDICAL HISTORY Cardiovascular: HTN GI: Other (Crohn's ) PAST SURGICAL HISTORY Past Surgical History: Hernia Repair FAMILY HISTORY Family History: Hypertension SOCIAL HISTORY Smoke: 1 pack per day ALCOHOL: occassional Drugs: None Lives: with Family CURRENT MEDICATIONS CURRENT MEDICATIONS Current Medications Medications (Trade) Dose Ordered Sig/Nicole Route PRN Reason Start Time Stop Time Status Last Admin Dose Admin Aspirin (Ecotrin) 81 mg DAILYWBKFT PO 05/12/20 08:00 05/12/20 08:53 Lactobacillus Rhamnosus (Culturelle) 1 cap BID PO 05/11/20 21:00 05/12/20 08:53 Sodium Chloride 1,000 ml @ 75 mls/hr [id number] IV 05/11/20 13:30 05/11/20 21:15 Cyclobenzaprine HCl (Flexeril) 10 mg TID PO 05/11/20 21:00 05/12/20 08:54 Lisinopril (Prinivil) 20 mg DAILY PO 05/12/20 09:00 05/12/20 08:54 Trazodone HCl (Desyrel) 50 mg QHS PO 05/11/20 21:00 05/11/20 21:13 Iohexol (Omnipaque 350 Mg/ml) 90 ml 1X ONCE IV 05/12/20 10:00 05/12/20 10:01 DC 05/12/20 10:17 ALLERGIES ALLERGIES: Coded Allergies: No Known Drug Allergies (Unverified , 05/10/20) ROS Review of System 14 point ROS conducted with pertinent positives noted above in HPI PHYSICAL EXAM General: Alert, Oriented X3, Cooperative, No acute distress HEENT: Atraumatic, Mucous membr. moist/pink Lungs: Clear to auscultation Heart: Regular rate Abdomen: Soft, No tenderness Extremities: Other (RLE Rook boot, DRSG intact. sensation intact) Neuro: Normal speech, Sensation intact Psych/Mental Status: Mental status NL, Mood NL MUSCULOSKELETAL: Osteoarthritic changes both hands VITALS/I&O VITALS/I&O: Vital Signs Date Time Temp Pulse Resp B/P (MAP) Pulse Ox O2 Delivery O2 Flow Rate FiO2 05/12/20 09:04 18 90 Room Air 2.0 05/12/20 08:54 81 124/70 05/12/20 07:00 97.5 97.5 I & O 05/11/20 05/11/20 05/12/20 15:00 23:00 07:00 Intake Total 150 ml 240 ml 1685 ml Output Total 3475 ml Balance 150 ml 240 ml -1790 ml LABS Lab: Laboratory Tests Test 05/11/20 12:10 05/11/20 18:30 05/11/20 21:45 05/12/20 06:00 Lactic Acid Level 4.9 mmol/L (0.4-2.0) *H 4.7 mmol/L (0.4-2.0) *H 1.9 mmol/L (0.4-2.0) 1.5 mmol/L (0.4-2.0) White Blood Count 10.4 x10^3/uL (4.0-11.0) Red Blood Count 3.31 x10^6/uL (4.30-5.70) L Hemoglobin 12.0 g/dL (13.0-17.5) L Hematocrit 34.3 % (39.0-53.0) L Mean Corpuscular Volume 104 fL (79-100) H Mean Corpuscular Hemoglobin 36 pg (25-35) H Mean Corpuscular Hemoglobin Concent 35 g/dL (31-37) Red Cell Distribution Width 13.3 % (11.5-14.5) Platelet Count 182 x10^3/uL (140-400) Neutrophils (%) (Auto) 62 % (31-73) Lymphocytes (%) (Auto) 32 % (24-48) Monocytes (%) (Auto) 6 % (0-9) Eosinophils (%) (Auto) 0 % (0-3) Basophils (%) (Auto) 1 % (0-3) Neutrophils # (Auto) 6.4 x10^3/uL (1.8-7.7) Lymphocytes # (Auto) 3.3 x10^3/uL (1.0-4.8) Monocytes # (Auto) 0.6 x10^3/uL (0.0-1.1) Eosinophils # (Auto) 0.0 x10^3/uL (0.0-0.7) Basophils # (Auto) 0.0 x10^3/uL (0.0-0.2) Sodium Level 139 mmol/L (136-145) Potassium Level 3.9 mmol/L (3.5-5.1) # Chloride Level 104 mmol/L (98-107) Carbon Dioxide Level 31 mmol/L (21-32) Anion Gap 4 (6-14) L Blood Urea Nitrogen 12 mg/dL (8-26) Creatinine 1.0 mg/dL (0.7-1.3) Estimated GFR (Cockcroft-Gault) 76.7 BUN/Creatinine Ratio 12 (6-20) Glucose Level 124 mg/dL (70-99) H Calcium Level 7.7 mg/dL (8.5-10.1) L Total Bilirubin 0.3 mg/dL (0.2-1.0) Aspartate Amino Transferase (AST) 97 U/L (15-37) H Alanine Aminotransferase (ALT) 41 U/L (16-63) Alkaline Phosphatase 52 U/L (46-116) Total Protein 5.3 g/dL (6.4-8.2) L Albumin 2.3 g/dL (3.4-5.0) L Albumin/Globulin Ratio 0.8 (1.0-1.7) L Laboratory Tests 05/12/20 06:00 Laboratory Tests 05/12/20 06:00 ASSESSMENT/PLAN ASSESSMENT/PLAN 1. Acute onset right leg pain, numbness. CTA with RLE arterial thrombus. S/p right common femoral artery cutdown with thrombectomy of the right iliac artery, right common femoral artery and profunda artery endarterectomy, and compartment fasciotomy. on heparin gtt. 2. Hypertension; controlled 3. Lactic acidosis 4. Crohn's 5. Tobaccoism; discussed/encouraged cessation Recommendations Echo with bubble study to asses for PFO/ASD Outpatient event monitor for evaluation for AFIB. Anticoagulation therapy as per vasc surgery Supportive care Follow up in our office with Dr. Stahl June 24 at 1:00pm. NICKY ARIZMENDI APRN May 12, 2020 11:52
[2020-05-12] MEDS: HEPARIN 25,000UTS/250ML PREMIX 250 ML IV PRN (12:01)
[2020-05-12 12:19] LABS: CHOLESTEROL/HDL RATIO 2.9
--- NOTE | 2020-05-12 12:35 | RAD ---
Examination: CT ANGIOGRAPHY ABD AND PELVIS History: Reason: PVD, possible residual aorto- iliac stenosis / Spl. Instructions: INJ 75ML OMNI 350 / History: Comparison/Correlation: None Findings: Axial images of the abdomen and pelvis were obtained following IV contrast and arteriography protocol. Maximum intensity projection sagittal and coronal reformatted images were provided. 3-D volume rendered images of the arterial vasculature provided. Bibasilar costophrenic sulcus atelectasis is present greater on the right. Fatty infiltration of the liver is present. Spleen is normal. Pancreas is unremarkable. Adrenal glands are normal. Kidneys are unremarkable. Gallbladder fossa normal. There is no abdominal aortic aneurysm. Mild scattered atherosclerotic calcification involving the abdominal aorta is present. Celiac and superior mesenteric arteries are patent. Inferior mesenteric artery is patent. Common iliac arteries have atherosclerotic patella calcific involvement but no significant stenosis. Right internal iliac artery is patent. There is significant stenosis of the left internal iliac artery. Presacral fluid is present. No loculated collections seen. Hemorrhage or other complex fluid along the right lateral pelvic sidewall is present measuring 0.8 cm transverse by 10 cm anteroposterior.. Moderate quantity of stool in the colon is present. Umbilical hernia defect is present. Left inguinal hernia is present containing a small segment of the mid sigmoid colon. Moderate quantity of omental fat extension into hernia is also seen. Dunlap catheter is present within the urinary bladder. Right groin subcutaneous fat has soft tissue gas corresponding to recent intervention. Surgical clips noted. Skin chyna noted at this level. L4-5 disc space narrowing is moderate. Endplate sclerosis noted. Impression: Bibasilar costophrenic sulcus atelectasis. Left inguinal hernia contains omental fat and a short segment of nonstrangulated sigmoid colon. Right pelvic sidewall hemorrhage or other complex fluid contiguous with less complex presacral fluid noted. Left internal iliac arterial significant stenosis. No other significant stenoses identified. PQRS Compliance Statement: One or more of the following individualized dose reduction techniques were utilized for this examination: 1. Automated exposure control 2. Adjustment of the mA and/or kV according to patient size 3. Use of iterative reconstruction technique Electronically signed by: Paresh Bennett MD (05/12/2020 12:32 PM) [id number]
[2020-05-12 15:00] VITALS: BP 91/56
--- NOTE | 2020-05-12 15:40 | PDOC ---
PROGRESS NOTES Chief Complaint Chief Complaint A/P Right lower extremity acute limb-threatening ischemia secondary to thrombosis of his right iliac artery s/p Right common femoral artery cutdown with thrombectomy of the right iliac, Right common femoral artery and profunda artery endarterectomy, Right calf 4-compartment fasciotomies through an open medial and lateral incision. 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 plan CTA of abdomen and pelvis heparin drip cards consult to evaluate for embolic source dressing changes per vascular sx daily ASA full code Vitals Vitals Vital Signs Date Time Temp Pulse Resp B/P (MAP) Pulse Ox O2 Delivery O2 Flow Rate FiO2 05/12/20 11:00 97.6 78 20 109/63 (78) 95 Room Air 97.6 05/12/20 09:54 2.0 Physical Exam General: Alert, Cooperative Heart: Regular rate Extremities: No cyanosis Skin: No rashes Labs LABS Laboratory Tests Test 05/11/20 18:30 05/11/20 21:45 05/12/20 06:00 Lactic Acid Level 4.7 mmol/L (0.4-2.0) 1.9 mmol/L (0.4-2.0) 1.5 mmol/L (0.4-2.0) White Blood Count 10.4 x10^3/uL (4.0-11.0) Red Blood Count 3.31 x10^6/uL (4.30-5.70) Hemoglobin 12.0 g/dL (13.0-17.5) Hematocrit 34.3 % (39.0-53.0) Mean Corpuscular Volume 104 fL (79-100) Mean Corpuscular Hemoglobin 36 pg (25-35) Mean Corpuscular Hemoglobin Concent 35 g/dL (31-37) Red Cell Distribution Width 13.3 % (11.5-14.5) Platelet Count 182 x10^3/uL (140-400) Neutrophils (%) (Auto) 62 % (31-73) Lymphocytes (%) (Auto) 32 % (24-48) Monocytes (%) (Auto) 6 % (0-9) Eosinophils (%) (Auto) 0 % (0-3) Basophils (%) (Auto) 1 % (0-3) Neutrophils # (Auto) 6.4 x10^3/uL (1.8-7.7) Lymphocytes # (Auto) 3.3 x10^3/uL (1.0-4.8) Monocytes # (Auto) 0.6 x10^3/uL (0.0-1.1) Eosinophils # (Auto) 0.0 x10^3/uL (0.0-0.7) Basophils # (Auto) 0.0 x10^3/uL (0.0-0.2) Sodium Level 139 mmol/L (136-145) Potassium Level 3.9 mmol/L (3.5-5.1) Chloride Level 104 mmol/L (98-107) Carbon Dioxide Level 31 mmol/L (21-32) Anion Gap 4 (6-14) Blood Urea Nitrogen 12 mg/dL (8-26) Creatinine 1.0 mg/dL (0.7-1.3) Estimated GFR (Cockcroft-Gault) 76.7 BUN/Creatinine Ratio 12 (6-20) Glucose Level 124 mg/dL (70-99) Calcium Level 7.7 mg/dL (8.5-10.1) Total Bilirubin 0.3 mg/dL (0.2-1.0) Aspartate Amino Transf (AST/SGOT) 97 U/L (15-37) Alanine Aminotransferase (ALT/SGPT) 41 U/L (16-63) Alkaline Phosphatase 52 U/L (46-116) Total Protein 5.3 g/dL (6.4-8.2) Albumin 2.3 g/dL (3.4-5.0) Albumin/Globulin Ratio 0.8 (1.0-1.7) Triglycerides Level 158 mg/dL (0-150) Cholesterol Level 150 mg/dL (0-200) LDL Cholesterol, Calculated 66 mg/dL (0-100) VLDL Cholesterol, Calculated 32 mg/dL (0-40) Non-HDL Cholesterol Calculated 98 mg/dL (0-129) HDL Cholesterol 52 mg/dL (40-60) Cholesterol/HDL Ratio 2.9 Thyroid Stimulating Hormone (TSH) 0.945 uIU/mL (0.358-3.74) Comment Review of Relevant I have reviewed the following items [place] (where applicable) has been applied. Labs Laboratory Tests Test 05/10/20 22:08 05/11/20 01:30 05/11/20 06:55 05/11/20 12:10 White Blood Count 8.2 x10^3/uL (4.0-11.0) 9.4 x10^3/uL (4.0-11.0) Red Blood Count 4.08 x10^6/uL (4.30-5.70) 3.86 x10^6/uL (4.30-5.70) Hemoglobin 15.0 g/dL (13.0-17.5) 14.1 g/dL (13.0-17.5) Hematocrit 42.0 % (39.0-53.0) 40.0 % (39.0-53.0) Mean Corpuscular Volume 103 fL (79-100) 104 fL (79-100) Mean Corpuscular Hemoglobin 37 pg (25-35) 36 pg (25-35) Mean Corpuscular Hemoglobin Concent 36 g/dL (31-37) 35 g/dL (31-37) Red Cell Distribution Width 13.1 % (11.5-14.5) 13.4 % (11.5-14.5) Platelet Count 256 x10^3/uL (140-400) 212 x10^3/uL (140-400) Neutrophils (%) (Auto) 66 % (31-73) Lymphocytes (%) (Auto) 27 % (24-48) Monocytes (%) (Auto) 6 % (0-9) Eosinophils (%) (Auto) 1 % (0-3) Basophils (%) (Auto) 1 % (0-3) Neutrophils # (Auto) 5.4 x10^3/uL (1.8-7.7) Lymphocytes # (Auto) 2.2 x10^3/uL (1.0-4.8) Monocytes # (Auto) 0.5 x10^3/uL (0.0-1.1) Eosinophils # (Auto) 0.0 x10^3/uL (0.0-0.7) Basophils # (Auto) 0.0 x10^3/uL (0.0-0.2) Prothrombin Time 12.8 SEC (11.7-14.0) Prothromb Time International Ratio 1.0 (0.8-1.1) Activated Partial Thromboplast Time 26 SEC (24-38) Sodium Level 138 mmol/L (136-145) 138 mmol/L (136-145) Potassium Level 3.4 mmol/L (3.5-5.1) 5.0 mmol/L (3.5-5.1) Chloride Level 101 mmol/L (98-107) 101 mmol/L (98-107) Carbon Dioxide Level 22 mmol/L (21-32) 28 mmol/L (21-32) Anion Gap 15 (6-14) 9 (6-14) Blood Urea Nitrogen 12 mg/dL (8-26) 12 mg/dL (8-26) Creatinine 1.2 mg/dL (0.7-1.3) 1.0 mg/dL (0.7-1.3) Estimated GFR (Cockcroft-Gault) 62.2 76.7 BUN/Creatinine Ratio 10 (6-20) Glucose Level 193 mg/dL (70-99) 148 mg/dL (70-99) Calcium Level 8.9 mg/dL (8.5-10.1) 8.3 mg/dL (8.5-10.1) Total Bilirubin 0.1 mg/dL (0.2-1.0) Aspartate Amino Transf (AST/SGOT) 34 U/L (15-37) Alanine Aminotransferase (ALT/SGPT) 40 U/L (16-63) Alkaline Phosphatase 78 U/L (46-116) Total Protein 6.9 g/dL (6.4-8.2) Albumin 3.2 g/dL (3.4-5.0) Albumin/Globulin Ratio 0.9 (1.0-1.7) Urine Collection Type Unknown Urine Color Yellow Urine Clarity Clear Urine pH 5.5 (<5.0-8.0) Urine Specific [place] >=1.030 (1.000-1.030) Urine Protein Negative mg/dL (NEG-TRACE) Urine Glucose (UA) >=1000 mg/dL (NEG) Urine Ketones (Stick) Negative mg/dL (NEG) Urine Blood Negative (NEG) Urine Nitrite Negative (NEG) Urine Bilirubin Negative (NEG) Urine Urobilinogen Dipstick 0.2 mg/dL (0.2 mg/dL) Urine Leukocyte Esterase Negative (NEG) Urine RBC 0 /HPF (0-2) Urine WBC Occ /HPF (0-4) Urine Squamous Epithelial Cells Few /LPF Urine Bacteria 0 /HPF (0-FEW) Urine Hyaline Casts Few /HPF Urine Mucus Slight /LPF Lactic Acid Level 3.7 mmol/L (0.4-2.0) 4.9 mmol/L (0.4-2.0) Troponin I Quantitative 0.021 ng/mL (0.000-0.055) Test 05/11/20 18:30 05/11/20 21:45 05/12/20 06:00 Lactic Acid Level 4.7 mmol/L (0.4-2.0) 1.9 mmol/L (0.4-2.0) 1.5 mmol/L (0.4-2.0) White Blood Count 10.4 x10^3/uL (4.0-11.0) Red Blood Count 3.31 x10^6/uL (4.30-5.70) Hemoglobin 12.0 g/dL (13.0-17.5) Hematocrit 34.3 % (39.0-53.0) Mean Corpuscular Volume 104 fL (79-100) Mean Corpuscular Hemoglobin 36 pg (25-35) Mean Corpuscular Hemoglobin Concent 35 g/dL (31-37) Red Cell Distribution Width 13.3 % (11.5-14.5) Platelet Count 182 x10^3/uL (140-400) Neutrophils (%) (Auto) 62 % (31-73) Lymphocytes (%) (Auto) 32 % (24-48) Monocytes (%) (Auto) 6 % (0-9) Eosinophils (%) (Auto) 0 % (0-3) Basophils (%) (Auto) 1 % (0-3) Neutrophils # (Auto) 6.4 x10^3/uL (1.8-7.7) Lymphocytes # (Auto) 3.3 x10^3/uL (1.0-4.8) Monocytes # (Auto) 0.6 x10^3/uL (0.0-1.1) Eosinophils # (Auto) 0.0 x10^3/uL (0.0-0.7) Basophils # (Auto) 0.0 x10^3/uL (0.0-0.2) Sodium Level 139 mmol/L (136-145) Potassium Level 3.9 mmol/L (3.5-5.1) Chloride Level 104 mmol/L (98-107) Carbon Dioxide Level 31 mmol/L (21-32) Anion Gap 4 (6-14) Blood Urea Nitrogen 12 mg/dL (8-26) Creatinine 1.0 mg/dL (0.7-1.3) Estimated GFR (Cockcroft-Gault) 76.7 BUN/Creatinine Ratio 12 (6-20) Glucose Level 124 mg/dL (70-99) Calcium Level 7.7 mg/dL (8.5-10.1) Total Bilirubin 0.3 mg/dL (0.2-1.0) Aspartate Amino Transf (AST/SGOT) 97 U/L (15-37) Alanine Aminotransferase (ALT/SGPT) 41 U/L (16-63) Alkaline Phosphatase 52 U/L (46-116) Total Protein 5.3 g/dL (6.4-8.2) Albumin 2.3 g/dL (3.4-5.0) Albumin/Globulin Ratio 0.8 (1.0-1.7) Triglycerides Level 158 mg/dL (0-150) Cholesterol Level 150 mg/dL (0-200) LDL Cholesterol, Calculated 66 mg/dL (0-100) VLDL Cholesterol, Calculated 32 mg/dL (0-40) Non-HDL Cholesterol Calculated 98 mg/dL (0-129) HDL Cholesterol 52 mg/dL (40-60) Cholesterol/HDL Ratio 2.9 Thyroid Stimulating Hormone (TSH) 0.945 uIU/mL (0.358-3.74) Laboratory Tests Test 05/11/20 18:30 05/11/20 21:45 05/12/20 06:00 Lactic Acid Level 4.7 mmol/L (0.4-2.0) 1.9 mmol/L (0.4-2.0) 1.5 mmol/L (0.4-2.0) White Blood Count 10.4 x10^3/uL (4.0-11.0) Red Blood Count 3.31 x10^6/uL (4.30-5.70) Hemoglobin 12.0 g/dL (13.0-17.5) Hematocrit 34.3 % (39.0-53.0) Mean Corpuscular Volume 104 fL (79-100) Mean Corpuscular Hemoglobin 36 pg (25-35) Mean Corpuscular Hemoglobin Concent 35 g/dL (31-37) Red Cell Distribution Width 13.3 % (11.5-14.5) Platelet Count 182 x10^3/uL (140-400) Neutrophils (%) (Auto) 62 % (31-73) Lymphocytes (%) (Auto) 32 % (24-48) Monocytes (%) (Auto) 6 % (0-9) Eosinophils (%) (Auto) 0 % (0-3) Basophils (%) (Auto) 1 % (0-3) Neutrophils # (Auto) 6.4 x10^3/uL (1.8-7.7) Lymphocytes # (Auto) 3.3 x10^3/uL (1.0-4.8) Monocytes # (Auto) 0.6 x10^3/uL (0.0-1.1) Eosinophils # (Auto) 0.0 x10^3/uL (0.0-0.7) Basophils # (Auto) 0.0 x10^3/uL (0.0-0.2) Sodium Level 139 mmol/L (136-145) Potassium Level 3.9 mmol/L (3.5-5.1) Chloride Level 104 mmol/L (98-107) Carbon Dioxide Level 31 mmol/L (21-32) Anion Gap 4 (6-14) Blood Urea Nitrogen 12 mg/dL (8-26) Creatinine 1.0 mg/dL (0.7-1.3) Estimated GFR (Cockcroft-Gault) 76.7 BUN/Creatinine Ratio 12 (6-20) Glucose Level 124 mg/dL (70-99) Calcium Level 7.7 mg/dL (8.5-10.1) Total Bilirubin 0.3 mg/dL (0.2-1.0) Aspartate Amino Transf (AST/SGOT) 97 U/L (15-37) Alanine Aminotransferase (ALT/SGPT) 41 U/L (16-63) Alkaline Phosphatase 52 U/L (46-116) Total Protein 5.3 g/dL (6.4-8.2) Albumin 2.3 g/dL (3.4-5.0) Albumin/Globulin Ratio 0.8 (1.0-1.7) Triglycerides Level 158 mg/dL (0-150) Cholesterol Level 150 mg/dL (0-200) LDL Cholesterol, Calculated 66 mg/dL (0-100) VLDL Cholesterol, Calculated 32 mg/dL (0-40) Non-HDL Cholesterol Calculated 98 mg/dL (0-129) HDL Cholesterol 52 mg/dL (40-60) Cholesterol/HDL Ratio 2.9 Thyroid Stimulating Hormone (TSH) 0.945 uIU/mL (0.358-3.74) Medications Current Medications Fentanyl Citrate (Fentanyl 2ml Vial) 75 mcg 1X ONCE IVP Last administered on 05/10/20at 21:10; Start 05/10/20 at 21:00; Stop 05/10/20 at 21:01; Status DC Hydromorphone HCl (Dilaudid) 1 mg 1X ONCE IV Last administered on 05/10/20at 22:04; Start 05/10/20 at 22:00; Stop 05/10/20 at 22:01; Status DC Iohexol (Omnipaque 350 Mg/ml) 75 ml 1X ONCE IV Last administered on 05/10/20at 23:12; Start 05/10/20 at 23:15; Stop 05/10/20 at 23:16; Status DC Info (CONTRAST GIVEN -- Rx MONITORING) 1 each PRN DAILY PRN MC SEE COMMENTS; Start 05/10/20 at 23:15; Stop 05/12/20 at 09:51; Status DC Heparin Sodium (Porcine) (Heparin Sodium) 9,100 unit 1X ONCE IV ; Start 05/11/20 at 00:30; Stop 05/11/20 at 00:31; Status DC Heparin Sodium/ Dextrose 250 ml @ 7 mls/hr CONT PRN IV PER PROTOCOL Last administered on 05/11/20at 00:51; Start 05/11/20 at 00:30; Stop 05/12/20 at 11:38; Status DC Heparin Sodium (Porcine) (Heparin Sodium) 3,400 unit PRN Q6HRS PRN IV FOR UFH LEVEL LESS THAN 0.2; Start 05/11/20 at 00:30; Stop 05/12/20 at 11:40; Status DC Heparin Sodium (Porcine) (Heparin Sodium) 1,700 unit PRN Q6HRS PRN IV FOR UFH LEVEL 0.2 - 0.29; Start 05/11/20 at 00:30; Stop 05/12/20 at 11:41; Status DC Hydromorphone HCl (Dilaudid) 1 mg 1X ONCE IV Last administered on 05/11/20at 00:41; Start 05/11/20 at 00:30; Stop 05/11/20 at 00:31; Status DC Ondansetron HCl (Zofran) 4 mg PRN Q8HRS PRN IV NAUSEA/VOMITING; Start 05/11/20 at 00:45; Stop 05/12/20 at 00:45; Status DC Heparin Sodium (Porcine) (Heparin Sodium) 5,000 unit 1X ONCE IV Last administered on 05/11/20at 00:48; Start 05/11/20 at 00:48; Stop 05/11/20 at 01:19; Status DC Sodium Chloride 1,000 ml @ 1,000 mls/hr 1X ONCE IV ; Start 05/11/20 at 01:30; Stop 05/11/20 at 02:29; Status DC Lidocaine HCl (Lidocaine 1% 20ml Vial) 20 ml STK-MED ONCE .ROUTE ; Start 05/11/20 at 01:40; Stop 05/11/20 at 01:41; Status DC Bupivacaine HCl (Sensorcaine Mpf 0.5%) 30 ml STK-MED ONCE .ROUTE ; Start 05/11/20 at 01:40; Stop 05/11/20 at 01:41; Status DC Gelatin (Gelfoam Size 100) 1 each STK-MED ONCE .ROUTE ; Start 05/11/20 at 01:41; Stop 05/11/20 at 01:42; Status DC Iohexol (Omnipaque 300 Mg/ml) 50 ml STK-MED ONCE .ROUTE ; Start 05/11/20 at 01:41; Stop 05/11/20 at 01:42; Status DC Cellulose (Surgicel Fibrillar 1x2) 1 each STK-MED ONCE .ROUTE Last administered on 05/11/20at 15:49; Start 05/11/20 at 01:42; Stop 05/11/20 at 01:42; Status DC Thrombin (Thrombin Topical) 5,000 unit STK-MED ONCE .ROUTE ; Start 05/11/20 at 01:42; Stop 05/11/20 at 01:42; Status DC Papaverine HCl 60 mg STK-MED ONCE .ROUTE ; Start 05/11/20 at 01:42; Stop 05/11/20 at 01:42; Status DC Thrombin 20,000 unit STK-MED ONCE TP ; Start 05/11/20 at 01:42; Stop 05/11/20 at 01:42; Status DC Ondansetron HCl (Zofran) 4 mg PRN Q6HRS PRN IV NAUSEA/VOMITING; Start 05/11/20 at 01:45; Stop 05/12/20 at 01:44; Status DC Fentanyl Citrate (Fentanyl 2ml Vial) 25 mcg PRN Q5MIN PRN IV MILD PAIN 1-3; Start 05/11/20 at 01:45; Stop 05/12/20 at 01:44; Status DC Fentanyl Citrate (Fentanyl 2ml Vial) 50 mcg PRN Q5MIN PRN IV MODERATE TO SEVERE PAIN; Start 05/11/20 at 01:45; Stop 05/12/20 at 01:44; Status DC Morphine Sulfate (Morphine Sulfate) 1 mg PRN Q10MIN PRN IV SEVERE PAIN 7-10; Start 05/11/20 at 01:45; Stop 05/12/20 at 01:44; Status DC Ringer's Solution 1,000 ml @ 30 mls/hr Q24H IV ; Start 05/11/20 at 01:45; Stop 05/11/20 at 13:44; Status DC Lidocaine HCl (Xylocaine-Mpf 1% 2ml Vial) 2 ml PRN 1X PRN ID PRIOR TO IV START; Start 05/11/20 at 01:45; Stop 05/12/20 at 01:44; Status DC Hydromorphone HCl (Dilaudid) 0.5 mg PRN Q10MIN PRN IV SEV PAIN, Second choice; Start 05/11/20 at 01:45; Stop 05/12/20 at 01:44; Status DC Prochlorperazine Edisylate (Compazine) 5 mg PACU PRN PRN IV NAUSEA, MRX1; Start 05/11/20 at 01:45; Stop 05/12/20 at 01:44; Status DC Succinylcholine Chloride (Anectine) 200 mg STK-MED ONCE .ROUTE ; Start 05/11/20 at 01:47; Stop 05/11/20 at 01:47; Status DC Rocuronium [place] (Zemuron) 50 mg STK-MED ONCE .ROUTE ; Start 05/11/20 at 01:47; Stop 05/11/20 at 01:47; Status DC Midazolam HCl (Versed) 2 mg STK-MED ONCE .ROUTE ; Start 05/11/20 at 01:47; Stop 05/11/20 at 01:47; Status DC Dexamethasone Sodium Phosphate (Decadron) 4 mg STK-MED ONCE .ROUTE ; Start 05/11/20 at 01:48; Stop 05/11/20 at 01:48; Status DC Propofol (Diprivan) 200 mg STK-MED ONCE IV ; Start 05/11/20 at 01:48; Stop 05/11/20 at 01:48; Status DC Lidocaine HCl (Lidocaine Pf 2% Vial) 5 ml STK-MED ONCE .ROUTE ; Start 05/11/20 at 01:48; Stop 05/11/20 at 01:48; Status DC Heparin Sodium (Porcine) 5000 unit/Sodium Chloride 505 ml @ 505 mls/hr 1X ONCE IRR Last administered on 05/11/20at 03:15; Start 05/11/20 at 02:00; Stop 05/11/20 at 02:59; Status DC Cefazolin Sodium 1 gm/Sodium Chloride 500 ml @ 500 mls/hr 1X ONCE IRR Last administered on 05/11/20at 03:13; Start 05/11/20 at 02:00; Stop 05/11/20 at 02:59; Status DC Alteplase, Recombinant (Cathflo) 4 mg 1X ONCE INT CAT ; Start 05/11/20 at 02:00; Stop 05/11/20 at 02:01; Status DC Morphine Sulfate (Morphine Sulfate) 2 mg PRN Q2HR PRN IV PAIN Last administered on 05/12/20at 09:04; Start 05/11/20 at 02:15 Oxycodone/ Acetaminophen (Percocet 5/325) 1 tab PRN Q4HRS PRN PO PAIN Last administered on 05/12/20at 08:54; Start 05/11/20 at 02:15 Cefazolin Sodium (Ancef) 1 gm Q8HRS IVP Last administered on 05/12/20at 14:41; Start 05/11/20 at 06:00 Ondansetron HCl (Zofran) 4 mg PRN Q6HRS PRN IVP NAUSEA/VOMITING; Start 05/11/20 at 02:30 Aspirin (Alo Aspirin) 81 mg DAILYWBKFT PO ; Start 05/11/20 at 08:00; Stop 05/11/20 at 11:29; Status DC Heparin Sodium (Porcine) (Heparin Sodium) 10,000 unit STK-MED ONCE .ROUTE ; Start 05/11/20 at 02:56; Stop 05/11/20 at 02:56; Status DC Fentanyl Citrate (Fentanyl 2ml Vial) 100 mcg STK-MED ONCE .ROUTE ; Start 05/11/20 at 03:11; Stop 05/11/20 at 03:11; Status DC Info (Anti-Coagulation Monitoring By Pharmacy) 1 each PRN DAILY PRN MC SEE COMMENTS Last administered on 05/11/20at 10:17; Start 05/11/20 at 09:45 Aspirin (Ecotrin) 81 mg DAILYWBKFT PO Last administered on 05/12/20at 08:53; Start 05/12/20 at 08:00 Sodium Bicarbonate (Sodium Bicarb Adult 8.4% Syr) 50 meq STK-MED ONCE .ROUTE ; Start 05/11/20 at 04:02; Stop 05/11/20 at 13:26; Status DC Fentanyl Citrate (Fentanyl 2ml Vial) 100 mcg STK-MED ONCE .ROUTE ; Start 05/11/20 at 05:27; Stop 05/11/20 at 13:26; Status DC Lactobacillus Rhamnosus (Culturelle) 1 cap BID PO Last administered on 05/12/20at 08:53; Start 05/11/20 at 21:00 Sodium Chloride 1,000 ml @ 75 mls/hr [id number] IV Last administered on 05/11/20at 21:15; Start 05/11/20 at 13:30 Cyclobenzaprine HCl (Flexeril) 10 mg TID PO Last administered on 05/12/20at 14:41; Start 05/11/20 at 21:00 Lisinopril (Prinivil) 20 mg DAILY PO Last administered on 05/12/20at 08:54; Start 05/12/20 at 09:00 Trazodone HCl (Desyrel) 50 mg QHS PO Last administered on 05/11/20at 21:13; Start 05/11/20 at 21:00 Iohexol (Omnipaque 350 Mg/ml) 90 ml 1X ONCE IV Last administered on 05/12/20at 10:17; Start 05/12/20 at 10:00; Stop 05/12/20 at 10:01; Status DC Info (CONTRAST GIVEN -- Rx MONITORING) 1 each PRN DAILY PRN MC SEE COMMENTS; Start 05/12/20 at 10:00; Stop 05/14/20 at 09:59 Heparin Sodium/ Dextrose 250 ml @ 10 mls/hr CONT PRN IV PER PROTOCOL Last administered on 05/12/20at 12:01; Start 05/12/20 at 11:30 Heparin Sodium (Porcine) (Heparin Sodium) 2,850 unit PRN Q6HRS PRN IV FOR UFH LEVEL LESS THAN 0.2; Start 05/12/20 at 11:30 Multivitamins/ Minerals (I-Jeffrey) 1 tab DAILY PO ; Start 05/13/20 at 09:00 Active Scripts Active Reported Viagra (Sildenafil Citrate) 50 Mg Tablet 1 Tab PO UD Cyclobenzaprine Hcl 10 Mg Tablet 1 Tab PO TID Proair Hfa Inhaler (Albuterol Sulfate) 8.5 Gm Hfa.aer.ad 2 Puff IH PRN Q4-6HRS PRN 21 Days Trazodone Hcl 50 Mg Tablet 1 Tab PO QHS Meloxicam 15 Mg Tablet 1 Tab PO DAILY 30 Days Lisinopril 20 Mg Tablet 1 Tab PO DAILY Vitals/I & O Vital Sign - Last 24 Hours 05/11/20 05/11/20 05/11/20 05/11/20 16:25 19:33 20:00 21:12 Temp 98.4 98.4 Pulse 95 Resp 16 18 B/P (MAP) 102/47 (65) Pulse Ox 96 92 92 O2 Delivery Room Air Room Air Room Air O2 Flow Rate 2.0 2.0 2.0 05/11/20 05/11/20 05/12/20 05/12/20 22:12 23:33 03:31 06:22 Temp 97.6 97.6 97.6 97.6 Pulse 73 80 Resp 18 16 16 18 B/P (MAP) 106/51 (69) 106/49 (68) Pulse Ox 92 91 90 90 O2 Delivery Room Air Room Air Room Air Room Air O2 Flow Rate 2.0 2.0 05/12/20 05/12/20 05/12/20 05/12/20 07:00 07:22 08:00 08:54 Temp 97.5 97.5 Pulse 81 Resp 20 20 18 B/P (MAP) 124/70 (88) Pulse Ox 90 90 90 O2 Delivery Room Air Room Air Room Air Room Air O2 Flow Rate 2.0 2.0 05/12/20 05/12/20 05/12/20 05/12/20 08:54 09:04 09:34 09:54 Pulse 81 Resp 18 18 18 B/P (MAP) 124/70 Pulse Ox 90 90 90 O2 Delivery Room Air Room Air Room Air O2 Flow Rate 2.0 2.0 2.0 05/12/20 11:00 Temp 97.6 97.6 Pulse 78 Resp 20 B/P (MAP) 109/63 (78) Pulse Ox 95 O2 Delivery Room Air Intake and Output 05/11/20 05/11/20 05/12/20 15:00 23:00 07:00 Intake Total 150 ml 240 ml 1685 ml Output Total 3475 ml Balance 150 ml 240 ml -1790 ml Justicifation of Admission Dx: Justifications for Admission: Justification of Admission Dx: Yes AGNELICA JONAS MD May 12, 2020 15:40
[2020-05-12] MEDS: IV NORMAL SALINE 1000ML BAG 1,000 ML IV SCH (17:49)
--- NOTE | 2020-05-12 18:06 | PATHOLOGY ---
[facility] Accession Number: [id number] . 01 Material submitted: . leg - RIGHT LEG ARTERIAL THROMBUS. Modifiers: right . 01 Clinical history: . thrombosis . 02 Diagnosis: Blood clots, "right leg arterial thrombus": - Clotted blood and thrombotic material consistent with thrombosis. . (SHA:mml; 05/12/2020) [facility] 05/12/2020 1540 Local . 02 Electronically signed: . Raymond Taylor MD, Pathologist NPI- [id number] . 01 Gross description: . The specimen is received in formalin, labeled "Howard Conrad, right leg arterial thrombus" and consists of a segment of pink-purple tissue measuring 4.5 x 1.1 x 0.9 cm. Sectioning reveals focal blood clot measuring 0.7 x 0.6 cm. Rn Primary Care sections are submitted in A1. (SDY; 05/11/2020) SYU/SYU 05/11/2020 1646 Local . 02 Pathologist provided ICD-10: I82.90 . 02 CPT . 814609 Specimen Comment: A courtesy copy of this report has been sent to [phone], [phone] Specimen Comment: [phone], , Specimen Comment: Report sent to ,DR BLANCO,DR PRESLEY / DR CLIFTON Performed at: 01 [facility] [address], [place] [id number] MD Manoj Bahena MD Phone: [phone] Performed at: 02 [facility] [address] [place], [place] [id number] MD Hugo Mcmanus MD Phone: [phone]
[2020-05-12 18:26] VITALS: BP 91/54
[2020-05-12] MEDS: traZODone 50 MG TABLET. PO SCH (20:15)
[2020-05-12 22:40] VITALS: BP 105/58
[2020-05-13 00:36] LABS: HEMATOCRIT 32.8 % (39.0-53.0); HEMOGLOBIN 11.5 g/dL (13.0-17.5); RED BLOOD COUNT 3.16 x10^6/uL (4.30-5.70); RED CELL DISTRIBUTION WIDTH 13.2 % (11.5-14.5)
[2020-05-13 02:53] VITALS: BP 104/56
[2020-05-13] MEDS: HEPARIN 25,000UTS/250ML PREMIX 250 ML IV PRN ×2 (03:38→18:32)
[2020-05-13] MEDS: ceFAZolin SODIUM IV Push 1 GM VIAL. IVP SCH ×3 (06:09→20:28)
[2020-05-13] MEDS: IV NORMAL SALINE 1000ML BAG 1,000 ML IV SCH ×2 (06:26→18:27)
[2020-05-13 07:00] VITALS: BP 114/63
--- NOTE | 2020-05-13 07:35 | CARD ---
MR#: [id number] Date of Study: 05/12/2020 Ordering Physician: LILIANA ALLEN, Referring Physician: LILIANA ALLEN, Tech: Rea Murillo APPROVED REPORT EXAM: Two-dimensional echocardiogram with contrast. Other Information Quality : AverageHR: 82bpm INDICATION Bubble study ordered for arterial Thrombosis Echo Enhancing Agent Agent/Amount Used: Agitated Saline 16mL RISK FACTORS Hypertension Smoking 2D DIMENSIONS Left Atrium(2D)3.9 (1.6-4.0cm)IVSd1.3 (0.7-1.1cm) Aortic Root(2D)3.7 (2.0-3.7cm)LVDd4.6 (3.9-5.9cm) LVOT Diameter2.2 (1.8-2.4cm)PWd1.2 (0.7-1.1cm) LVDs2.4 (2.5-4.0cm)FS (%) 47.8 % SV77.3 mlLVEF(%)79.2 (>50%) Aortic Valve AoV Peak Bam.167.9cm/sAoV VTI29.0cm AO Peak GR.11.3mmHgLVOT VTI 21.55cm AO Mean GR.6mmHg Mitral Valve MV E Mizprpwg84.0cm/sMV E Peak Gr.4mmHg MV DECEL [id number] A Gohmtogq17.0cm/s MV E Mean Gr.2mmHgE/A Ratio0.9 TDI Lateral E' P. V9.46cm/sMedial E' P. V7.53cm/s E/Lateral E'9.3E/Medial E'11.7 Tricuspid Valve TR P. [id number]/sRAP [id number] TR Peak Gr.72gfTbCKXR94pcSq Pulmonary Vein S1 Enewudsg29.5cm/sS2 Ursfmlax79.66cm/s D2 Yfhnmfbj92.7cm/sPVa [id number] LEFT VENTRICLE The left ventricle is normal size. There is mild to moderate concentric left ventricular hypertrophy. The left ventricular systolic function is normal. The Ejection Fraction is 55-60%. There is normal L V segmental wall motion. Transmitral Doppler flow pattern is Grade I-abnormal relaxation pattern. RIGHT VENTRICLE The right ventricle is normal size. There is normal right ventricular wall thickness. The right ventr icular systolic function is normal. ATRIA The left atrium size is normal. The right atrium size is normal. The interatrial septum is intact wit h no evidence for an atrial septal defect or patent foramen ovale as noted on 2-D or Doppler imaging. AORTIC VALVE The aortic valve is normal in structure and function. Doppler and Color Flow revealed trace aortic re gurgitation. Calculated aortic valve area is 2.72 cm2 with maximum pressure gradient of 11 mmHg and m sapna pressure gradient of 6 mmHg. There is no significant aortic valvular stenosis. MITRAL VALVE The mitral valve is normal in structure and function. There is no evidence of mitral valve prolapse. There is no mitral valve stenosis with a mean gradient of 2.39 mmHg. Doppler and Color-flow revealed trace mitral regurgitation. TRICUSPID VALVE The tricuspid valve is normal in structure and function. Doppler and Color Flow revealed trace tricus pid regurgitation with an estimated PAP of 33 mmHg. There is no tricuspid valve stenosis. PULMONIC VALVE The pulmonic valve is not well visualized. Doppler and Color Flow revealed no pulmonic valvular regur gitation. GREAT VESSELS The aortic root is normal in size. The IVC is normal in size and collapses >50% with inspiration. PERICARDIAL EFFUSION There is no evidence of significant pericardial effusion. Critical Notification Critical Value: No <Conclusion> The left ventricular systolic function is normal. The Ejection Fraction is 55-60%. There is normal LV segmental wall motion. Transmitral Doppler flow pattern is Grade I-abnormal relaxation pattern. Trace mitral regurgitation. Trace tricuspid regurgitation with an estimated PAP of 33 mmHg. There is no evidence of significant pericardial effusion. Bubble study technically difficult but appears to be negative. If clinical suspicion is high, consider RONA. Signed by : Frank Jj, Electronically Approved : 05/13/2020 07:35:00
[2020-05-13] MEDS: CYCLOBENZAPRINE 10 MG TABLET. PO SCH ×3 (08:26→20:28)
[2020-05-13] MEDS: ASPIRIN ENTERIC COATED 81 MG TABLET.DR. PO SCH (08:26)
[2020-05-13] MEDS: LISINOPRIL 20 MG TABLET PO SCH (08:26)
[2020-05-13] MEDS: MULTIVITAMIN I-VITE TABLET. PO SCH (08:26)
[2020-05-13] MEDS: LACTOBACILLUS RHAMNOSUS GG 1 CAPSULE. PO SCH ×2 (08:26→20:28)
[2020-05-13] MEDS: oxyCODONE/APAP 5/325 1 TAB TABLET PO PRN ×2 (08:30→20:28)
[2020-05-13] MEDS ORDERED: ceFAZolin SODIUM IV Push 1 GM VIAL. IVP PRN (08:30)
[2020-05-13] MEDS: MORPHINE SULFATE 2 MG/ML VIAL. IV PRN (09:58)
[2020-05-13 10:32] VITALS: BP 100/52
--- NOTE | 2020-05-13 10:58 | PDOC ---
PROGRESS NOTES Subjective Subjective I am doing pretty well. It does not hurt to stand on my leg but it feels "full" when I do. I am having no pain when in bed. Patient was examined in bed but was initially in the recliner upon my arrival. He was able to move well from the chair back to the bed for dressing change. He denies chest pain and shortness of breath. He denies fever and chills. He is post op day #2 of surgery from: 1. Right common femoral artery cutdown with thrombectomy of the right iliac artery. 2. Right common femoral artery and profunda artery endarterectomy. 3. Right calf 4-compartment fasciotomies through an open medial and lateral incision. His white count today is 11, hemoglobin 11.5, hematocrit 32.8, platelet count 180, his lactic acid today was 1.6 which is down from 1.9 and from the high of 4.9 preoperatively. He had a CTA performed yesterday which was reviewed by Dr. Jones. 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 Objective Objective Vital Signs Date Time Temp Pulse Resp B/P (MAP) Pulse Ox O2 Delivery O2 Flow Rate FiO2 05/13/20 10:32 97.7 82 18 100/52 (68) 99 Room Air 97.7 05/12/20 18:55 2.0 Intake and Output 05/13/20 07:00 Intake Total 2322 ml Output Total 4225 ml Balance -1903 ml Intake Oral 1200 ml IV Total 1122 ml Output Urine Total 4225 ml Physical Exam Physical Exam He is alert and oriented. Vital signs are stable. His right groin Sudha VAC remains in place. The sponge has continuous suction. There is no surrounding redness, edema or drainage. His right leg was unwrapped. The muscles within the fasciotomy wounds appear healthy and well perfused. He was redressed with aggressively saline moistened gauze, ABD pads and Kerlix. A Rooke boot was replaced to his foot. He is able to move both feet well. They are both warm and pink with brisk capillary refill. He still has his Dunlap catheter in place. General: Alert, Oriented X3, Cooperative HEENT: Atraumatic Neuro: Normal speech Psych/Mental Status: Mental status NL, Mood NL Skin: No rashes, No breakdown Plan Plan of Care 59-year-old gentleman who is now status post thrombectomy of the right iliac artery with Right common femoral artery and profunda artery endarterectomy and Right calf 4-compartment fasciotomies through an open medial and lateral incision. His right lower leg is quite painful post dressing change. He is resting comfortably in bed following pain medication administration. He can move both feet. He has excellent Doppler flow in his right foot. Plan: His CTA of the abdomen and pelvis showed mild iliac disease. No additi onal vascular surgery intervention or iliac stent is needed. He should continue his weight-based heparin protocol for now. Cardiology has been requested to consult and look for a potential embolic source for his iliac and femoral occlusion. His open fasciotomy dressings were changed with a saline wet-to-dry daily dressing. Because he does not have excessive muscular swelling in his right lower leg, we will surgically close his fasciotomy sites tomorrow. Continue daily aspirin. Follow-up with surgery tomorrow. Comment Review of Relevant I have reviewed the following items [place] (where applicable) has been applied. Labs Laboratory Tests Test 05/11/20 12:10 05/11/20 18:30 05/11/20 21:45 05/12/20 06:00 Lactic Acid Level 4.9 mmol/L (0.4-2.0) 4.7 mmol/L (0.4-2.0) 1.9 mmol/L (0.4-2.0) 1.5 mmol/L (0.4-2.0) White Blood Count 10.4 x10^3/uL (4.0-11.0) Red Blood Count 3.31 x10^6/uL (4.30-5.70) Hemoglobin 12.0 g/dL (13.0-17.5) Hematocrit 34.3 % (39.0-53.0) Mean Corpuscular Volume 104 fL (79-100) Mean Corpuscular Hemoglobin 36 pg (25-35) Mean Corpuscular Hemoglobin Concent 35 g/dL (31-37) Red Cell Distribution Width 13.3 % (11.5-14.5) Platelet Count 182 x10^3/uL (140-400) Neutrophils (%) (Auto) 62 % (31-73) Lymphocytes (%) (Auto) 32 % (24-48) Monocytes (%) (Auto) 6 % (0-9) Eosinophils (%) (Auto) 0 % (0-3) Basophils (%) (Auto) 1 % (0-3) Neutrophils # (Auto) 6.4 x10^3/uL (1.8-7.7) Lymphocytes # (Auto) 3.3 x10^3/uL (1.0-4.8) Monocytes # (Auto) 0.6 x10^3/uL (0.0-1.1) Eosinophils # (Auto) 0.0 x10^3/uL (0.0-0.7) Basophils # (Auto) 0.0 x10^3/uL (0.0-0.2) Sodium Level 139 mmol/L (136-145) Potassium Level 3.9 mmol/L (3.5-5.1) Chloride Level 104 mmol/L (98-107) Carbon Dioxide Level 31 mmol/L (21-32) Anion Gap 4 (6-14) Blood Urea Nitrogen 12 mg/dL (8-26) Creatinine 1.0 mg/dL (0.7-1.3) Estimated GFR (Cockcroft-Gault) 76.7 BUN/Creatinine Ratio 12 (6-20) Glucose Level 124 mg/dL (70-99) Calcium Level 7.7 mg/dL (8.5-10.1) Total Bilirubin 0.3 mg/dL (0.2-1.0) Aspartate Amino Transf (AST/SGOT) 97 U/L (15-37) Alanine Aminotransferase (ALT/SGPT) 41 U/L (16-63) Alkaline Phosphatase 52 U/L (46-116) Total Protein 5.3 g/dL (6.4-8.2) Albumin 2.3 g/dL (3.4-5.0) Albumin/Globulin Ratio 0.8 (1.0-1.7) Triglycerides Level 158 mg/dL (0-150) Cholesterol Level 150 mg/dL (0-200) LDL Cholesterol, Calculated 66 mg/dL (0-100) VLDL Cholesterol, Calculated 32 mg/dL (0-40) Non-HDL Cholesterol Calculated 98 mg/dL (0-129) HDL Cholesterol 52 mg/dL (40-60) Cholesterol/HDL Ratio 2.9 Thyroid Stimulating Hormone (TSH) 0.945 uIU/mL (0.358-3.74) Test 05/12/20 18:18 05/13/20 00:20 05/13/20 06:00 Heparin Anti-Xa Act, Unfractionated 0.19 IU/mL (0.30-0.70) 0.53 IU/mL (0.30-0.70) 0.54 IU/mL (0.30-0.70) White Blood Count 11.0 x10^3/uL (4.0-11.0) Red Blood Count 3.16 x10^6/uL (4.30-5.70) Hemoglobin 11.5 g/dL (13.0-17.5) Hematocrit 32.8 % (39.0-53.0) Mean Corpuscular Volume 104 fL (79-100) Mean Corpuscular Hemoglobin 37 pg (25-35) Mean Corpuscular Hemoglobin Concent 35 g/dL (31-37) Red Cell Distribution Width 13.2 % (11.5-14.5) Platelet Count 180 x10^3/uL (140-400) Lactic Acid Level 1.6 mmol/L (0.4-2.0) Laboratory Tests Test 05/12/20 18:18 05/13/20 00:20 05/13/20 06:00 Heparin Anti-Xa Act, Unfractionated 0.19 IU/mL (0.30-0.70) 0.53 IU/mL (0.30-0.70) 0.54 IU/mL (0.30-0.70) White Blood Count 11.0 x10^3/uL (4.0-11.0) Red Blood Count 3.16 x10^6/uL (4.30-5.70) Hemoglobin 11.5 g/dL (13.0-17.5) Hematocrit 32.8 % (39.0-53.0) Mean Corpuscular Volume 104 fL (79-100) Mean Corpuscular Hemoglobin 37 pg (25-35) Mean Corpuscular Hemoglobin Concent 35 g/dL (31-37) Red Cell Distribution Width 13.2 % (11.5-14.5) Platelet Count 180 x10^3/uL (140-400) Lactic Acid Level 1.6 mmol/L (0.4-2.0) Medications Current Medications Fentanyl Citrate (Fentanyl 2ml Vial) 75 mcg 1X ONCE IVP Last administered on 05/10/20at 21:10; Start 05/10/20 at 21:00; Stop 05/10/20 at 21:01; Status DC Hydromorphone HCl (Dilaudid) 1 mg 1X ONCE IV Last administered on 05/10/20at 22:04; Start 05/10/20 at 22:00; Stop 05/10/20 at 22:01; Status DC Iohexol (Omnipaque 350 Mg/ml) 75 ml 1X ONCE IV Last administered on 05/10/20at 23:12; Start 05/10/20 at 23:15; Stop 05/10/20 at 23:16; Status DC Info (CONTRAST GIVEN -- Rx MONITORING) 1 each PRN DAILY PRN MC SEE COMMENTS; Start 05/10/20 at 23:15; Stop 05/12/20 at 09:51; Status DC Heparin Sodium (Porcine) (Heparin Sodium) 9,100 unit 1X ONCE IV ; Start 05/11/20 at 00:30; Stop 05/11/20 at 00:31; Status DC Heparin Sodium/ Dextrose 250 ml @ 7 mls/hr CONT PRN IV PER PROTOCOL Last administered on 05/11/20at 00:51; Start 05/11/20 at 00:30; Stop 05/12/20 at 11:38; Status DC Heparin Sodium (Porcine) (Heparin Sodium) 3,400 unit PRN Q6HRS PRN IV FOR UFH LEVEL LESS THAN 0.2; Start 05/11/20 at 00:30; Stop 05/12/20 at 11:40; Status DC Heparin Sodium (Porcine) (Heparin Sodium) 1,700 unit PRN Q6HRS PRN IV FOR UFH LEVEL 0.2 - 0.29; Start 05/11/20 at 00:30; Stop 05/12/20 at 11:41; Status DC Hydromorphone HCl (Dilaudid) 1 mg 1X ONCE IV Last administered on 05/11/20at 00:41; Start 05/11/20 at 00:30; Stop 05/11/20 at 00:31; Status DC Ondansetron HCl (Zofran) 4 mg PRN Q8HRS PRN IV NAUSEA/VOMITING; Start 05/11/20 at 00:45; Stop 05/12/20 at 00:45; Status DC Heparin Sodium (Porcine) (Heparin Sodium) 5,000 unit 1X ONCE IV Last admin istered on 05/11/20at 00:48; Start 05/11/20 at 00:48; Stop 05/11/20 at 01:19; Status DC Sodium Chloride 1,000 ml @ 1,000 mls/hr 1X ONCE IV ; Start 05/11/20 at 01:30; Stop 05/11/20 at 02:29; Status DC Lidocaine HCl (Lidocaine 1% 20ml Vial) 20 ml STK-MED ONCE .ROUTE ; Start 05/11/20 at 01:40; Stop 05/11/20 at 01:41; Status DC Bupivacaine HCl (Sensorcaine Mpf 0.5%) 30 ml STK-MED ONCE .ROUTE ; Start 05/11/20 at 01:40; Stop 05/11/20 at 01:41; Status DC Gelatin (Gelfoam Size 100) 1 each STK-MED ONCE .ROUTE ; Start 05/11/20 at 01:41; Stop 05/11/20 at 01:42; Status DC Iohexol (Omnipaque 300 Mg/ml) 50 ml STK-MED ONCE .ROUTE ; Start 05/11/20 at 01:41; Stop 05/11/20 at 01:42; Status DC Cellulose (Surgicel Fibrillar 1x2) 1 each STK-MED ONCE .ROUTE Last administered on 05/11/20at 15:49; Start 05/11/20 at 01:42; Stop 05/11/20 at 01:42; Status DC Thrombin (Thrombin Topical) 5,000 unit STK-MED ONCE .ROUTE ; Start 05/11/20 at 01:42; Stop 05/11/20 at 01:42; Status DC Papaverine HCl 60 mg STK-MED ONCE .ROUTE ; Start 05/11/20 at 01:42; Stop 05/11/20 at 01:42; Status DC Thrombin 20,000 unit STK-MED ONCE TP ; Start 05/11/20 at 01:42; Stop 05/11/20 at 01:42; Status DC Ondansetron HCl (Zofran) 4 mg PRN Q6HRS PRN IV NAUSEA/VOMITING; Start 05/11/20 at 01:45; Stop 05/12/20 at 01:44; Status DC Fentanyl Citrate (Fentanyl 2ml Vial) 25 mcg PRN Q5MIN PRN IV MILD PAIN 1-3; Start 05/11/20 at 01:45; Stop 05/12/20 at 01:44; Status DC Fentanyl Citrate (Fentanyl 2ml Vial) 50 mcg PRN Q5MIN PRN IV MODERATE TO SEVERE PAIN; Start 05/11/20 at 01:45; Stop 05/12/20 at 01:44; Status DC Morphine Sulfate (Morphine Sulfate) 1 mg PRN Q10MIN PRN IV SEVERE PAIN 7-10; Start 05/11/20 at 01:45; Stop 05/12/20 at 01:44; Status DC Ringer's Solution 1,000 ml @ 30 mls/hr Q24H IV ; Start 05/11/20 at 01:45; Stop 05/11/20 at 13:44; Status DC Lidocaine HCl (Xylocaine-Mpf 1% 2ml Vial) 2 ml PRN 1X PRN ID PRIOR TO IV START; Start 05/11/20 at 01:45; Stop 05/12/20 at 01:44; Status DC Hydromorphone HCl (Dilaudid) 0.5 mg PRN Q10MIN PRN IV SEV PAIN, Second choice; Start 05/11/20 at 01:45; Stop 05/12/20 at 01:44; Status DC Prochlorperazine Edisylate (Compazine) 5 mg PACU PRN PRN IV NAUSEA, MRX1; Start 05/11/20 at 01:45; Stop 05/12/20 at 01:44; Status DC Succinylcholine Chloride (Anectine) 200 mg STK-MED ONCE .ROUTE ; Start 05/11/20 at 01:47; Stop 05/11/20 at 01:47; Status DC Rocuronium Baudette (Zemuron) 50 mg STK-MED ONCE .ROUTE ; Start 05/11/20 at 01:47; Stop 05/11/20 at 01:47; Status DC Midazolam HCl (Versed) 2 mg STK-MED ONCE .ROUTE ; Start 05/11/20 at 01:47; Stop 05/11/20 at 01:47; Status DC Dexamethasone Sodium Phosphate (Decadron) 4 mg STK-MED ONCE .ROUTE ; Start 05/11/20 at 01:48; Stop 05/11/20 at 01:48; Status DC Propofol (Diprivan) 200 mg STK-MED ONCE IV ; Start 05/11/20 at 01:48; Stop 05/11/20 at 01:48; Status DC Lidocaine HCl (Lidocaine Pf 2% Vial) 5 ml STK-MED ONCE .ROUTE ; Start 05/11/20 at 01:48; Stop 05/11/20 at 01:48; Status DC Heparin Sodium (Porcine) 5000 unit/Sodium Chloride 505 ml @ 505 mls/hr 1X ONCE IRR Last administered on 05/11/20at 03:15; Start 05/11/20 at 02:00; Stop 05/11/20 at 02:59; Status DC Cefazolin Sodium 1 gm/Sodium Chloride 500 ml @ 500 mls/hr 1X ONCE IRR Last administered on 05/11/20at 03:13; Start 05/11/20 at 02:00; Stop 05/11/20 at 02:59; Status DC Alteplase, Recombinant (Cathflo) 4 mg 1X ONCE INT CAT ; Start 05/11/20 at 02:00; Stop 05/11/20 at 02:01; Status DC Morphine Sulfate (Morphine Sulfate) 2 mg PRN Q2HR PRN IV PAIN Last administered on 05/13/20at 09:58; Start 05/11/20 at 02:15 Oxycodone/ Acetaminophen (Percocet 5/325) 1 tab PRN Q4HRS PRN PO PAIN Last administered on 05/13/20at 08:30; Start 05/11/20 at 02:15 Cefazolin Sodium (Ancef) 1 gm Q8HRS IVP Last administered on 05/13/20at 06:09; Start 05/11/20 at 06:00 Ondansetron HCl (Zofran) 4 mg PRN Q6HRS PRN IVP NAUSEA/VOMITING; Start 05/11/20 at 02:30 Aspirin (Alo Aspirin) 81 mg DAILYWBKFT PO ; Start 05/11/20 at 08:00; Stop 05/11/20 at 11:29; Status DC Heparin Sodium (Porcine) (Heparin Sodium) 10,000 unit STK-MED ONCE .ROUTE ; Start 05/11/20 at 02:56; Stop 05/11/20 at 02:56; Status DC Fentanyl Citrate (Fentanyl 2ml Vial) 100 mcg STK-MED ONCE .ROUTE ; Start 05/11/20 at 03:11; Stop 05/11/20 at 03:11; Status DC Info (Anti-Coagulation Monitoring By Pharmacy) 1 each PRN DAILY PRN MC SEE COMMENTS Last administered on 05/11/20at 10:17; Start 05/11/20 at 09:45 Aspirin (Ecotrin) 81 mg DAILYWBKFT PO Last administered on 05/13/20at 08:26; Start 05/12/20 at 08:00 Sodium Bicarbonate (Sodium Bicarb Adult 8.4% Syr) 50 meq STK-MED ONCE .ROUTE ; Start 05/11/20 at 04:02; Stop 05/11/20 at 13:26; Status DC Fentanyl Citrate (Fentanyl 2ml Vial) 100 mcg STK-MED ONCE .ROUTE ; Start 05/11/20 at 05:27; Stop 05/11/20 at 13:26; Status DC Lactobacillus Rhamnosus (Culturelle) 1 cap BID PO Last administered on 05/13/20at 08:26; Start 05/11/20 at 21:00 Sodium Chloride 1,000 ml @ 75 mls/hr [id number] IV Last administered on 05/13/20 06:26; Start 05/11/20 at 13:30 Cyclobenzaprine HCl (Flexeril) 10 mg TID PO Last administered on 05/13/20at 08:26; Start 05/11/20 at 21:00 Lisinopril (Prinivil) 20 mg DAILY PO Last administered on 05/13/20at 08:26; Start 05/12/20 at 09:00 Trazodone HCl (Desyrel) 50 mg QHS PO Last administered on 05/12/20at 20:15; Start 05/11/20 at 21:00 Iohexol (Omnipaque 350 Mg/ml) 90 ml 1X ONCE IV Last administered on 05/12/20at 10:17; Start 05/12/20 at 10:00; Stop 05/12/20 at 10:01; Status DC Info (CONTRAST GIVEN -- Rx MONITORING) 1 each PRN DAILY PRN MC SEE COMMENTS; Start 05/12/20 at 10:00; Stop 05/14/20 at 09:59 Heparin Sodium/ Dextrose 250 ml @ 10 mls/hr CONT PRN IV PER PROTOCOL Last administered on 05/13/20at 03:38; Start 05/12/20 at 11:30 Heparin Sodium (Porcine) (Heparin Sodium) 2,850 unit PRN Q6HRS PRN IV FOR UFH LEVEL LESS THAN 0.2 Last administered on 05/12/20at 20:18; Start 05/12/20 at 11:30 Multivitamins/ Minerals (I-Jeffrey) 1 tab DAILY PO Last administered on 05/13/20at 08:26; Start 05/13/20 at 09:00 Cefazolin Sodium (Ancef) 1 gm 1X PRN IVP PRIOR TO PROCEDURE; Start 05/13/20 at 08:30; Stop 05/13/20 at 15:00 Active Scripts Active Reported Viagra (Sildenafil Citrate) 50 Mg Tablet 1 Tab PO UD Cyclobenzaprine Hcl 10 Mg Tablet 1 Tab PO TID Proair Hfa Inhaler (Albuterol Sulfate) 8.5 Gm Hfa.aer.ad 2 Puff IH PRN Q4-6HRS PRN 21 Days Trazodone Hcl 50 Mg Tablet 1 Tab PO QHS Meloxicam 15 Mg Tablet 1 Tab PO DAILY 30 Days Lisinopril 20 Mg Tablet 1 Tab PO DAILY Vitals/I & O Vital Sign - Last 24 Hours 05/12/20 05/12/20 05/12/20 05/12/20 11:00 15:00 17:55 18:26 Temp 97.6 98.0 98.0 97.6 98.0 98.0 Pulse 78 80 85 Resp 20 20 18 18 B/P (MAP) 109/63 (78) 91/56 (68) 91/54 (66) Pulse Ox 95 94 94 93 O2 Delivery Room Air Room Air Room Air Room Air O2 Flow Rate 2.0 05/12/20 05/12/20 05/12/20 05/12/20 18:55 20:00 22:40 22:57 Temp 98.6 98.6 Pulse 75 Resp 18 18 B/P (MAP) 105/58 (74) Pulse Ox 93 100 O2 Delivery Room Air Room Air Room Air Room Air O2 Flow Rate 2.0 05/12/20 05/13/20 05/13/20 05/13/20 23:57 02:53 07:00 08:26 Temp 97.8 98.0 97.8 98.0 Pulse 71 71 71 Resp 18 18 B/P (MAP) 104/56 (72) 114/63 (80) 114/63 Pulse Ox 100 92 97 O2 Delivery Room Air Room Air Room Air 05/13/20 10:32 Temp 97.7 97.7 Pulse 82 Resp 18 B/P (MAP) 100/52 (68) Pulse Ox 99 O2 Delivery Room Air Intake and Output 05/12/20 05/12/20 05/13/20 15:00 23:00 07:00 Intake Total 200 ml 300 ml 1822 ml Output Total 725 ml 850 ml 2650 ml Balance -525 ml -550 ml -828 ml Justicifation of Admission Dx: Justifications for Admission: Justification of Admission Dx: Yes LILIANA ALLEN DUST MIXER May 13, 2020 10:58
--- NOTE | 2020-05-13 12:37 | NUR ---
SS following up with discharge planning. SS reviewed pt chart and discussed with pt RN. Pt is currently on room air. Pt on IV Ancef. Per RN, pt having surgery 05/14/2020 to close. Pt may need home healthcare. SS will continue to follow for discharge planning.
[2020-05-13 14:36] VITALS: BP 107/54
--- NOTE | 2020-05-13 14:42 | PDOC ---
NICKY ARIZMENDI DIRECTOR [employer] 05/13/20 1442: CARDIO Progress Notes Date and Time Date of Service 05/13/20 Time of Evaluation 1151 Subjective Subjective: No Chest Pain, No shortness of breath, No Palpitations Vitals Vitals Vital Signs Date Time Temp Pulse Resp B/P (MAP) Pulse Ox O2 Delivery O2 Flow Rate FiO2 05/13/20 14:36 97.9 95 18 107/54 (71) 94 Room Air 97.9 05/12/20 18:55 2.0 Weight Weight [ ] Input and Output Intake and Output Intake and Output 05/13/20 06:59 Intake Total 2322 ml Output Total 4225 ml Balance -1903 ml Intake Oral 1200 ml IV Total 1122 ml Output Urine Total 4225 ml Laboratory Labs Laboratory Tests Test 05/12/20 18:18 05/13/20 00:20 05/13/20 06:00 Heparin Anti-Xa Act, Unfractionated 0.19 IU/mL (0.30-0.70) 0.53 IU/mL (0.30-0.70) 0.54 IU/mL (0.30-0.70) White Blood Count 11.0 x10^3/uL (4.0-11.0) Red Blood Count 3.16 x10^6/uL (4.30-5.70) Hemoglobin 11.5 g/dL (13.0-17.5) Hematocrit 32.8 % (39.0-53.0) Mean Corpuscular Volume 104 fL (79-100) Mean Corpuscular Hemoglobin 37 pg (25-35) Mean Corpuscular Hemoglobin Concent 35 g/dL (31-37) Red Cell Distribution Width 13.2 % (11.5-14.5) Platelet Count 180 x10^3/uL (140-400) Lactic Acid Level 1.6 mmol/L (0.4-2.0) Physical Exam HEENT: Neck Supple W Full Motion Chest: Symmetric LUNGS: Clear to Auscultation Heart: S1S2 Abdomen: Soft N/T Extremities: Other (RLE Rook boot, DRSG intact. sensation intact)) Neurology: alert, oriented, follow commands Assessment Assessment 1. Acute onset right leg pain, numbness. CTA with RLE arterial thrombus. S/p right common femoral artery cutdown with thrombectomy of the right iliac artery, right common femoral artery and profunda artery endarterectomy, and compartment fasciotomy. on heparin gtt. Echo without any obvious ASD/PFO. 2. Hypertension; controlled 3. Lactic acidosis 4. Crohn's 5. Tobaccoism; discussed/encouraged cessation Recommendations Outpatient event monitor for evaluation for AFIB has been arranged ASA therapy Anticoagulation as per vas surgery Supportive care Follow up in our office with Dr. Flannery June 24 at 1:00pm. Justicifation of Admission Dx: Justifications for Admission: Justification of Admission Dx: Yes SALENA FLANNERY MD 05/14/20 0931: CARDIO Progress Notes Assessment Assessment Patient seen and examined on 05/13/20. Discussed with our nurse practitioner and agree with her assessment and plan. Acute onset right leg pain, numbness. CTA with RLE arterial thrombus. S/p right common femoral artery cutdown with thrombectomy of the right iliac artery, right common femoral artery and profunda artery endarterectomy, and compartment fasciotomy. Echo without any obvious ASD/PFO. Hypertension; controlled on present medication. Tobaccoism; discussed Follow up in our office with Dr. Flanenry June 24 at 1:00pm. NICKY ARIZMENDI APRN May 13, 2020 14:42 SALENA FLANNERY MD May 14, 2020 09:31
--- NOTE | 2020-05-13 14:45 | PDOC ---
PROGRESS NOTES Chief Complaint Chief Complaint A/P Right lower extremity acute limb-threatening ischemia secondary to thrombosis of his right iliac artery s/p Right common femoral artery cutdown with thrombectomy of the right iliac, Right common femoral artery and profunda artery endarterectomy, Right calf 4-compartment fasciotomies through an open medial and lateral incision. 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 plan heparin drip cards consulted:Outpatient event monitor for evaluation for AFIB has been arranged Follow up in our office with Dr. Stahl June 24 at 1:00pm. dressing changes per vascular sx daily ASA full code History of Present Illness History of Present Illness no acute issues overnight. pain controlled. tolerating PO diet. Vitals Vitals Vital Signs Date Time Temp Pulse Resp B/P (MAP) Pulse Ox O2 Delivery O2 Flow Rate FiO2 05/13/20 14:36 97.9 95 18 107/54 (71) 94 Room Air 97.9 05/12/20 18:55 2.0 Physical Exam General: Alert, Oriented X3, Cooperative Heart: Regular rate Abdomen: Soft, No tenderness Extremities: Other (RLE Rook boot, DRSG intact. sensation intact) Skin: No rashes, No breakdown Labs LABS Laboratory Tests Test 05/12/20 18:18 05/13/20 00:20 05/13/20 06:00 Heparin Anti-Xa Act, Unfractionated 0.19 IU/mL (0.30-0.70) 0.53 IU/mL (0.30-0.70) 0.54 IU/mL (0.30-0.70) White Blood Count 11.0 x10^3/uL (4.0-11.0) Red Blood Count 3.16 x10^6/uL (4.30-5.70) Hemoglobin 11.5 g/dL (13.0-17.5) Hematocrit 32.8 % (39.0-53.0) Mean Corpuscular Volume 104 fL (79-100) Mean Corpuscular Hemoglobin 37 pg (25-35) Mean Corpuscular Hemoglobin Concent 35 g/dL (31-37) Red Cell Distribution Width 13.2 % (11.5-14.5) Platelet Count 180 x10^3/uL (140-400) Lactic Acid Level 1.6 mmol/L (0.4-2.0) Comment Review of Relevant I have reviewed the following items [place] (where applicable) has been applied. Labs Laboratory Tests Test 05/11/20 18:30 05/11/20 21:45 05/12/20 06:00 05/12/20 18:18 Lactic Acid Level 4.7 mmol/L (0.4-2.0) 1.9 mmol/L (0.4-2.0) 1.5 mmol/L (0.4-2.0) White Blood Count 10.4 x10^3/uL (4.0-11.0) Red Blood Count 3.31 x10^6/uL (4.30-5.70) Hemoglobin 12.0 g/dL (13.0-17.5) Hematocrit 34.3 % (39.0-53.0) Mean Corpuscular Volume 104 fL (79-100) Mean Corpuscular Hemoglobin 36 pg (25-35) Mean Corpuscular Hemoglobin Concent 35 g/dL (31-37) Red Cell Distribution Width 13.3 % (11.5-14.5) Platelet Count 182 x10^3/uL (140-400) Neutrophils (%) (Auto) 62 % (31-73) Lymphocytes (%) (Auto) 32 % (24-48) Monocytes (%) (Auto) 6 % (0-9) Eosinophils (%) (Auto) 0 % (0-3) Basophils (%) (Auto) 1 % (0-3) Neutrophils # (Auto) 6.4 x10^3/uL (1.8-7.7) Lymphocytes # (Auto) 3.3 x10^3/uL (1.0-4.8) Monocytes # (Auto) 0.6 x10^3/uL (0.0-1.1) Eosinophils # (Auto) 0.0 x10^3/uL (0.0-0.7) Basophils # (Auto) 0.0 x10^3/uL (0.0-0.2) Sodium Level 139 mmol/L (136-145) Potassium Level 3.9 mmol/L (3.5-5.1) Chloride Level 104 mmol/L (98-107) Carbon Dioxide Level 31 mmol/L (21-32) Anion Gap 4 (6-14) Blood Urea Nitrogen 12 mg/dL (8-26) Creatinine 1.0 mg/dL (0.7-1.3) Estimated GFR (Cockcroft-Gault) 76.7 BUN/Creatinine Ratio 12 (6-20) Glucose Level 124 mg/dL (70-99) Calcium Level 7.7 mg/dL (8.5-10.1) Total Bilirubin 0.3 mg/dL (0.2-1.0) Aspartate Amino Transf (AST/SGOT) 97 U/L (15-37) Alanine Aminotransferase (ALT/SGPT) 41 U/L (16-63) Alkaline Phosphatase 52 U/L (46-116) Total Protein 5.3 g/dL (6.4-8.2) Albumin 2.3 g/dL (3.4-5.0) Albumin/Globulin Ratio 0.8 (1.0-1.7) Triglycerides Level 158 mg/dL (0-150) Cholesterol Level 150 mg/dL (0-200) LDL Cholesterol, Calculated 66 mg/dL (0-100) VLDL Cholesterol, Calculated 32 mg/dL (0-40) Non-HDL Cholesterol Calculated 98 mg/dL (0-129) HDL Cholesterol 52 mg/dL (40-60) Cholesterol/HDL Ratio 2.9 Thyroid Stimulating Hormone (TSH) 0.945 uIU/mL (0.358-3.74) Heparin Anti-Xa Act, Unfractionated 0.19 IU/mL (0.30-0.70) Test 05/13/20 00:20 05/13/20 06:00 White Blood Count 11.0 x10^3/uL (4.0-11.0) Red Blood Count 3.16 x10^6/uL (4.30-5.70) Hemoglobin 11.5 g/dL (13.0-17.5) Hematocrit 32.8 % (39.0-53.0) Mean Corpuscular Volume 104 fL (79-100) Mean Corpuscular Hemoglobin 37 pg (25-35) Mean Corpuscular Hemoglobin Concent 35 g/dL (31-37) Red Cell Distribution Width 13.2 % (11.5-14.5) Platelet Count 180 x10^3/uL (140-400) Heparin Anti-Xa Act, Unfractionated 0.53 IU/mL (0.30-0.70) 0.54 IU/mL (0.30-0.70) Lactic Acid Level 1.6 mmol/L (0.4-2.0) Laboratory Tests Test 05/12/20 18:18 05/13/20 00:20 05/13/20 06:00 Heparin Anti-Xa Act, Unfractionated 0.19 IU/mL (0.30-0.70) 0.53 IU/mL (0.30-0.70) 0.54 IU/mL (0.30-0.70) White Blood Count 11.0 x10^3/uL (4.0-11.0) Red Blood Count 3.16 x10^6/uL (4.30-5.70) Hemoglobin 11.5 g/dL (13.0-17.5) Hematocrit 32.8 % (39.0-53.0) Mean Corpuscular Volume 104 fL (79-100) Mean Corpuscular Hemoglobin 37 pg (25-35) Mean Corpuscular Hemoglobin Concent 35 g/dL (31-37) Red Cell Distribution Width 13.2 % (11.5-14.5) Platelet Count 180 x10^3/uL (140-400) Lactic Acid Level 1.6 mmol/L (0.4-2.0) Medications Current Medications Fentanyl Citrate (Fentanyl 2ml Vial) 75 mcg 1X ONCE IVP Last administered on 05/10/20at 21:10; Start 05/10/20 at 21:00; Stop 05/10/20 at 21:01; Status DC Hydromorphone HCl (Dilaudid) 1 mg 1X ONCE IV Last administered on 05/10/20at 22:04; Start 05/10/20 at 22:00; Stop 05/10/20 at 22:01; Status DC Iohexol (Omnipaque 350 Mg/ml) 75 ml 1X ONCE IV Last administered on 05/10/20at 23:12; Start 05/10/20 at 23:15; Stop 05/10/20 at 23:16; Status DC Info (CONTRAST GIVEN -- Rx MONITORING) 1 each PRN DAILY PRN MC SEE COMMENTS; Start 05/10/20 at 23:15; Stop 05/12/20 at 09:51; Status DC Heparin Sodium (Porcine) (Heparin Sodium) 9,100 unit 1X ONCE IV ; Start 05/11/20 at 00:30; Stop 05/11/20 at 00:31; Status DC Heparin Sodium/ Dextrose 250 ml @ 7 mls/hr CONT PRN IV PER PROTOCOL Last administered on 05/11/20at 00:51; Start 05/11/20 at 00:30; Stop 05/12/20 at 11: 38; Status DC Heparin Sodium (Porcine) (Heparin Sodium) 3,400 unit PRN Q6HRS PRN IV FOR UFH LEVEL LESS THAN 0.2; Start 05/11/20 at 00:30; Stop 05/12/20 at 11:40; Status DC Heparin Sodium (Porcine) (Heparin Sodium) 1,700 unit PRN Q6HRS PRN IV FOR UFH LEVEL 0.2 - 0.29; Start 05/11/20 at 00:30; Stop 05/12/20 at 11:41; Status DC Hydromorphone HCl (Dilaudid) 1 mg 1X ONCE IV Last administered on 05/11/20at 00:41; Start 05/11/20 at 00:30; Stop 05/11/20 at 00:31; Status DC Ondansetron HCl (Zofran) 4 mg PRN Q8HRS PRN IV NAUSEA/VOMITING; Start 05/11/20 at 00:45; Stop 05/12/20 at 00:45; Status DC Heparin Sodium (Porcine) (Heparin Sodium) 5,000 unit 1X ONCE IV Last administered on 05/11/20at 00:48; Start 05/11/20 at 00:48; Stop 05/11/20 at 01:19; Status DC Sodium Chloride 1,000 ml @ 1,000 mls/hr 1X ONCE IV ; Start 05/11/20 at 01:30; Stop 05/11/20 at 02:29; Status DC Lidocaine HCl (Lidocaine 1% 20ml Vial) 20 ml STK-MED ONCE .ROUTE ; Start 05/11/20 at 01:40; Stop 05/11/20 at 01:41; Status DC Bupivacaine HCl (Sensorcaine Mpf 0.5%) 30 ml STK-MED ONCE .ROUTE ; Start 05/11/20 at 01:40; Stop 05/11/20 at 01:41; Status DC Gelatin (Gelfoam Size 100) 1 each STK-MED ONCE .ROUTE ; Start 05/11/20 at 01:41; Stop 05/11/20 at 01:42; Status DC Iohexol (Omnipaque 300 Mg/ml) 50 ml STK-MED ONCE .ROUTE ; Start 05/11/20 at 01:41; Stop 05/11/20 at 01:42; Status DC Cellulose (Surgicel Fibrillar 1x2) 1 each STK-MED ONCE .ROUTE Last administered on 05/11/20at 15:49; Start 05/11/20 at 01:42; Stop 05/11/20 at 01:42; Status DC Thrombin (Thrombin Topical) 5,000 unit STK-MED ONCE .ROUTE ; Start 05/11/20 at 01:42; Stop 05/11/20 at 01:42; Status DC Papaverine HCl 60 mg STK-MED ONCE .ROUTE ; Start 05/11/20 at 01:42; Stop 05/11/20 at 01:42; Status DC Thrombin 20,000 unit STK-MED ONCE TP ; Start 05/11/20 at 01:42; Stop 05/11/20 at 01:42; Status DC Ondansetron HCl (Zofran) 4 mg PRN Q6HRS PRN IV NAUSEA/VOMITING; Start 05/11/20 at 01:45; Stop 05/12/20 at 01:44; Status DC Fentanyl Citrate (Fentanyl 2ml Vial) 25 mcg PRN Q5MIN PRN IV MILD PAIN 1-3; Start 05/11/20 at 01:45; Stop 05/12/20 at 01:44; Status DC Fentanyl Citrate (Fentanyl 2ml Vial) 50 mcg PRN Q5MIN PRN IV MODERATE TO SEVERE PAIN; Start 05/11/20 at 01:45; Stop 05/12/20 at 01:44; Status DC Morphine Sulfate (Morphine Sulfate) 1 mg PRN Q10MIN PRN IV SEVERE PAIN 7-10; Start 05/11/20 at 01:45; Stop 05/12/20 at 01:44; Status DC Ringer's Solution 1,000 ml @ 30 mls/hr Q24H IV ; Start 05/11/20 at 01:45; Stop 05/11/20 at 13:44; Status DC Lidocaine HCl (Xylocaine-Mpf 1% 2ml Vial) 2 ml PRN 1X PRN ID PRIOR TO IV START; Start 05/11/20 at 01:45; Stop 05/12/20 at 01:44; Status DC Hydromorphone HCl (Dilaudid) 0.5 mg PRN Q10MIN PRN IV SEV PAIN, Second choice; Start 05/11/20 at 01:45; Stop 05/12/20 at 01:44; Status DC Prochlorperazine Edisylate (Compazine) 5 mg PACU PRN PRN IV NAUSEA, MRX1; Start 05/11/20 at 01:45; Stop 05/12/20 at 01:44; Status DC Succinylcholine Chloride (Anectine) 200 mg STK-MED ONCE .ROUTE ; Start 05/11/20 at 01:47; Stop 05/11/20 at 01:47; Status DC Rocuronium [place] (Zemuron) 50 mg STK-MED ONCE .ROUTE ; Start 05/11/20 at 01:47; Stop 05/11/20 at 01:47; Status DC Midazolam HCl (Versed) 2 mg STK-MED ONCE .ROUTE ; Start 05/11/20 at 01:47; Stop 05/11/20 at 01:47; Status DC Dexamethasone Sodium Phosphate (Decadron) 4 mg STK-MED ONCE .ROUTE ; Start 05/11/20 at 01:48; Stop 05/11/20 at 01:48; Status DC Propofol (Diprivan) 200 mg STK-MED ONCE IV ; Start 05/11/20 at 01:48; Stop 05/11/20 at 01:48; Status DC Lidocaine HCl (Lidocaine Pf 2% Vial) 5 ml STK-MED ONCE .ROUTE ; Start 05/11/20 at 01:48; Stop 05/11/20 at 01:48; Status DC Heparin Sodium (Porcine) 5000 unit/Sodium Chloride 505 ml @ 505 mls/hr 1X ONCE IRR Last administered on 05/11/20at 03:15; Start 05/11/20 at 02:00; Stop 05/11/20 at 02:59; Status DC Cefazolin Sodium 1 gm/Sodium Chloride 500 ml @ 500 mls/hr 1X ONCE IRR Last administered on 05/11/20at 03:13; Start 05/11/20 at 02:00; Stop 05/11/20 at 02:59; Status DC Alteplase, Recombinant (Cathflo) 4 mg 1X ONCE INT CAT ; Start 05/11/20 at 02:00; Stop 05/11/20 at 02:01; Status DC Morphine Sulfate (Morphine Sulfate) 2 mg PRN Q2HR PRN IV PAIN Last administered on 05/13/20at 09:58; Start 05/11/20 at 02:15 Oxycodone/ Acetaminophen (Percocet 5/325) 1 tab PRN Q4HRS PRN PO PAIN Last administered on 05/13/20at 08:30; Start 05/11/20 at 02:15 Cefazolin Sodium (Ancef) 1 gm Q8HRS IVP Last administered on 05/13/20at 14:41; Start 05/11/20 at 06:00 Ondansetron HCl (Zofran) 4 mg PRN Q6HRS PRN IVP NAUSEA/VOMITING; Start 05/11/20 at 02:30 Aspirin (Alo Aspirin) 81 mg DAILYWBKFT PO ; Start 05/11/20 at 08:00; Stop 05/11/20 at 11:29; Status DC Heparin Sodium (Porcine) (Heparin Sodium) 10,000 unit STK-MED ONCE .ROUTE ; Start 05/11/20 at 02:56; Stop 05/11/20 at 02:56; Status DC Fentanyl Citrate (Fentanyl 2ml Vial) 100 mcg STK-MED ONCE .ROUTE ; Start 05/11/20 at 03:11; Stop 05/11/20 at 03:11; Status DC Info (Anti-Coagulation Monitoring By Pharmacy) 1 each PRN DAILY PRN MC SEE COMMENTS Last administered on 05/11/20at 10:17; Start 05/11/20 at 09:45 Aspirin (Ecotrin) 81 mg DAILYWBKFT PO Last administered on 05/13/20at 08:26; Start 05/12/20 at 08:00 Sodium Bicarbonate (Sodium Bicarb Adult 8.4% Syr) 50 meq STK-MED ONCE .ROUTE ; Start 05/11/20 at 04:02; Stop 05/11/20 at 13:26; Status DC Fentanyl Citrate (Fentanyl 2ml Vial) 100 mcg STK-MED ONCE .ROUTE ; Start 05/11/20 at 05:27; Stop 05/11/20 at 13:26; Status DC Lactobacillus Rhamnosus (Culturelle) 1 cap BID PO Last administered on 05/13/20 08:26; Start 05/11/20 at 21:00 Sodium Chloride 1,000 ml @ 75 mls/hr [id number] IV Last administered on 05/13/20at 06:26; Start 05/11/20 at 13:30 Cyclobenzaprine HCl (Flexeril) 10 mg TID PO Last administered on 05/13/20at 14:41; Start 05/11/20 at 21:00 Lisinopril (Prinivil) 20 mg DAILY PO Last administered on 05/13/20at 08:26; Start 05/12/20 at 09:00 Trazodone HCl (Desyrel) 50 mg QHS PO Last administered on 05/12/20at 20:15; Start 05/11/20 at 21:00 Iohexol (Omnipaque 350 Mg/ml) 90 ml 1X ONCE IV Last administered on 05/12/20at 10:17; Start 05/12/20 at 10:00; Stop 05/12/20 at 10:01; Status DC Info (CONTRAST GIVEN -- Rx MONITORING) 1 each PRN DAILY PRN MC SEE COMMENTS; Start 05/12/20 at 10:00; Stop 05/14/20 at 09:59 Heparin Sodium/ Dextrose 250 ml @ 10 mls/hr CONT PRN IV PER PROTOCOL Last administered on 05/13/20at 03:38; Start 05/12/20 at 11:30 Heparin Sodium (Porcine) (Heparin Sodium) 2,850 unit PRN Q6HRS PRN IV FOR UFH LEVEL LESS THAN 0.2 Last administered on 05/12/20at 20:18; Start 05/12/20 at 11:30 Multivitamins/ Minerals (I-Jeffrey) 1 tab DAILY PO Last administered on 05/13/20at 08:26; Start 05/13/20 at 09:00 Cefazolin Sodium (Ancef) 1 gm 1X PRN IVP PRIOR TO PROCEDURE; Start 05/13/20 at 08:30; Stop 05/14/20 at 15:00 Bacitracin 70932 unit/Sodium Chloride 500 ml @ 500 mls/hr 1X ONCE IRR ; Start 05/14/20 at 06:00; Stop 05/14/20 at 06:59 Fentanyl Citrate (Fentanyl 2ml Vial) 25 mcg PRN Q5MIN PRN IV MILD PAIN 1-3; Start 05/14/20 at 07:00; Stop 05/15/20 at 06:59 Fentanyl Citrate (Fentanyl 2ml Vial) 50 mcg PRN Q5MIN PRN IV MODERATE TO SEVERE PAIN; Start 05/14/20 at 07:00; Stop 05/15/20 at 06:59 Morphine Sulfate (Morphine Sulfate) 1 mg PRN Q10MIN PRN IV SEVERE PAIN 7-10; Start 05/14/20 at 07:00; Stop 05/15/20 at 06:59 Ringer's Solution 1,000 ml @ 30 mls/hr Q24H IV ; Start 05/14/20 at 07:00; Stop 05/14/20 at 18:59 Hydromorphone HCl (Dilaudid) 0.5 mg PRN Q10MIN PRN IV SEV PAIN, Second choice; Start 05/14/20 at 07:00; Stop 05/15/20 at 06:59 Prochlorperazine Edisylate (Compazine) 5 mg PACU PRN PRN IV NAUSEA, MRX1; Start 05/14/20 at 07:00; Stop 05/15/20 at 06:59 Active Scripts Active Reported Viagra (Sildenafil Citrate) 50 Mg Tablet 1 Tab PO UD Cyclobenzaprine Hcl 10 Mg Tablet 1 Tab PO TID Proair Hfa Inhaler (Albuterol Sulfate) 8.5 Gm Hfa.aer.ad 2 Puff IH PRN Q4-6HRS PRN 21 Days Trazodone Hcl 50 Mg Tablet 1 Tab PO QHS Meloxicam 15 Mg Tablet 1 Tab PO DAILY 30 Days Lisinopril 20 Mg Tablet 1 Tab PO DAILY Vitals/I & O Vital Sign - Last 24 Hours 05/12/20 05/12/20 05/12/20 05/12/20 15:00 17:55 18:26 18:55 Temp 98.0 98.0 98.0 98.0 Pulse 80 85 Resp 20 18 18 18 B/P (MAP) 91/56 (68) 91/54 (66) Pulse Ox 94 94 93 93 O2 Delivery Room Air Room Air Room Air Room Air O2 Flow Rate 2.0 2.0 05/12/20 05/12/20 05/12/20/15/20 20:00 22:40 22:57 23:57 Temp 98.6 98.6 Pulse 75 Resp 18 B/P (MAP) 105/58 (74) Pulse Ox 100 100 O2 Delivery Room Air Room Air Room Air Room Air 05/13/20 05/13/20 05/13/20 05/13/20 02:53 07:00 08:26 10:32 Temp 97.8 98.0 97.7 97.8 98.0 97.7 Pulse 71 71 71 82 Resp 18 18 18 B/P (MAP) 104/56 (72) 114/63 (80) 114/63 100/52 (68) Pulse Ox 92 97 99 O2 Delivery Room Air Room Air Room Air 05/13/20 14:36 Temp 97.9 97.9 Pulse 95 Resp 18 B/P (MAP) 107/54 (71) Pulse Ox 94 O2 Delivery Room Air Intake and Output 05/12/20 05/12/20 05/13/20 15:00 23:00 07:00 Intake Total 200 ml 300 ml 1822 ml Output Total 725 ml 850 ml 2650 ml Balance -525 ml -550 ml -828 ml Justicifation of Admission Dx: Justifications for Admission: Justification of Admission Dx: Yes ANGELICA JONAS MD May 13, 2020 14:45
[2020-05-13 19:40] VITALS: BP 111/57
[2020-05-13] MEDS: traZODone 50 MG TABLET. PO SCH (20:28)
[2020-05-13 23:00] VITALS: BP 105/57
[2020-05-14 03:00] VITALS: BP 144/77
[2020-05-14] MEDS: oxyCODONE/APAP 5/325 1 TAB TABLET PO PRN ×3 (03:55→20:46)
[2020-05-14] MEDS ORDERED: BACITRACIN 50,000 UNIT in IV NORMAL SALINE 500ML BAG 500 ML IRR ONE (06:00)
[2020-05-14] MEDS: ceFAZolin SODIUM IV Push 1 GM VIAL. IVP SCH ×3 (06:10→20:45)
[2020-05-14 07:00] VITALS: BP 140/68
[2020-05-14] MEDS ORDERED: PROCHLORPERAZINE 10 MG/2 ML VIAL. IV PRN (07:00)
[2020-05-14] MEDS ORDERED: fentaNYL PF VIAL 100 MCG/2 ML VIAL IV PRN ×2 (07:00)
[2020-05-14] MEDS ORDERED: IV RINGERS,LACTATED 1000ML 1,000 ML IV SCH (07:00)
[2020-05-14] MEDS ORDERED: HYDROmorphone 2 MG/ML VIAL IV PRN (07:00)
[2020-05-14] MEDS: ASPIRIN ENTERIC COATED 81 MG TABLET.DR. PO SCH (08:00)
[2020-05-14] MEDS: IV NORMAL SALINE 1000ML BAG 1,000 ML IV SCH ×2 (08:10→21:30)
[2020-05-14] MEDS: LACTOBACILLUS RHAMNOSUS GG 1 CAPSULE. PO SCH ×2 (09:00→20:46)
[2020-05-14] MEDS: CYCLOBENZAPRINE 10 MG TABLET. PO SCH ×3 (09:00→20:46)
[2020-05-14] MEDS: MULTIVITAMIN I-VITE TABLET. PO SCH (09:00)
[2020-05-14] MEDS: LISINOPRIL 20 MG TABLET PO SCH (09:00)
--- NOTE | 2020-05-14 10:45 | NUR ---
SS following up with discharge planning. SS reviewed pt chart and discussed with pt RN. Pt COVID19 pending for surgery. Pt is currently on room air and IV Ancef. Surgery postponed closure today due to pending results for COVID19. Surgery to reschedule once COVID19 test has resulted. SS will continue to follow for discharge planning.
[2020-05-14 11:00] VITALS: BP 114/40
--- NOTE | 2020-05-14 11:21 | PDOC ---
PROGRESS NOTES Chief Complaint Chief Complaint A/P Right lower extremity acute limb-threatening ischemia secondary to thrombosis of his right iliac artery s/p Right common femoral artery cutdown with thrombectomy of the right iliac, Right common femoral artery and profunda artery endarterectomy, Right calf 4-compartment fasciotomies through an open medial and lateral incision. 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 plan heparin drip cards consulted:Outpatient event monitor for evaluation for AFIB has been arranged Follow up in our office with Dr. Stahl June 24 at 1:00pm. dressing changes per vascular sx daily ASA full code need guidance on AC at time of discharge from [facility]. coumadin? History of Present Illness History of Present Illness no acute issues overnight. pain controlled. tolerating PO diet. for closure of fasc today. Vitals Vitals Vital Signs Date Time Temp Pulse Resp B/P (MAP) Pulse Ox O2 Delivery O2 Flow Rate FiO2 05/14/20 11:00 97.7 92 20 114/40 (64) 94 Room Air 97.7 05/13/20 21:28 2.0 Physical Exam General: Alert, Oriented X3, Cooperative Heart: Regular rate Abdomen: Soft, No tenderness Extremities: Other (RLE Rook boot, DRSG intact. sensation intact) Skin: No rashes, No breakdown Comment Review of Relevant I have reviewed the following items [place] (where applicable) has been applied. Labs Laboratory Tests Test 05/12/20 18:18 05/13/20 00:20 05/13/20 06:00 Heparin Anti-Xa Act, Unfractionated 0.19 IU/mL (0.30-0.70) 0.53 IU/mL (0.30-0.70) 0.54 IU/mL (0.30-0.70) White Blood Count 11.0 x10^3/uL (4.0-11.0) Red Blood Count 3.16 x10^6/uL (4.30-5.70) Hemoglobin 11.5 g/dL (13.0-17.5) Hematocrit 32.8 % (39.0-53.0) Mean Corpuscular Volume 104 fL (79-100) Mean Corpuscular Hemoglobin 37 pg (25-35) Mean Corpuscular Hemoglobin Concent 35 g/dL (31-37) Red Cell Distribution Width 13.2 % (11.5-14.5) Platelet Count 180 x10^3/uL (140-400) Lactic Acid Level 1.6 mmol/L (0.4-2.0) Medications Current Medications Fentanyl Citrate (Fentanyl 2ml Vial) 75 mcg 1X ONCE IVP Last administered on 05/10/20at 21:10; Start 05/10/20 at 21:00; Stop 05/10/20 at 21:01; Status DC Hydromorphone HCl (Dilaudid) 1 mg 1X ONCE IV Last administered on 05/10/20at 22:04; Start 05/10/20 at 22:00; Stop 05/10/20 at 22:01; Status DC Iohexol (Omnipaque 350 Mg/ml) 75 ml 1X ONCE IV Last administered on 05/10/20at 23:12; Start 05/10/20 at 23:15; Stop 05/10/20 at 23:16; Status DC Info (CONTRAST GIVEN -- Rx MONITORING) 1 each PRN DAILY PRN MC SEE COMMENTS; Start 05/10/20 at 23:15; Stop 05/12/20 at 09:51; Status DC Heparin Sodium (Porcine) (Heparin Sodium) 9,100 unit 1X ONCE IV ; Start 05/11/20 at 00:30; Stop 05/11/20 at 00:31; Status DC Heparin Sodium/ Dextrose 250 ml @ 7 mls/hr CONT PRN IV PER PROTOCOL Last administered on 05/11/20at 00:51; Start 05/11/20 at 00:30; Stop 05/12/20 at 11:38; Status DC Heparin Sodium (Porcine) (Heparin Sodium) 3,400 unit PRN Q6HRS PRN IV FOR UFH LEVEL LESS THAN 0.2; Start 05/11/20 at 00:30; Stop 05/12/20 at 11:40; Status DC Heparin Sodium (Porcine) (Heparin Sodium) 1,700 unit PRN Q6HRS PRN IV FOR UFH LEVEL 0.2 - 0.29; Start 05/11/20 at 00:30; Stop 05/12/20 at 11:41; Status DC Hydromorphone HCl (Dilaudid) 1 mg 1X ONCE IV Last administered on 05/11/20at 00:41; Start 05/11/20 at 00:30; Stop 05/11/20 at 00:31; Status DC Ondansetron HCl (Zofran) 4 mg PRN Q8HRS PRN IV NAUSEA/VOMITING; Start 05/11/20 at 00:45; Stop 05/12/20 at 00:45; Status DC Heparin Sodium (Porcine) (Heparin Sodium) 5,000 unit 1X ONCE IV Last administered on 05/11/20at 00:48; Start 05/11/20 at 00:48; Stop 05/11/20 at 01:19; Status DC Sodium Chloride 1,000 ml @ 1,000 mls/hr 1X ONCE IV ; Start 05/11/20 at 01:30; Stop 05/11/20 at 02:29; Status DC Lidocaine HCl (Lidocaine 1% 20ml Vial) 20 ml STK-MED ONCE .ROUTE ; Start 05/11/20 at 01:40; Stop 05/11/20 at 01:41; Status DC Bupivacaine HCl (Sensorcaine Mpf 0.5%) 30 ml STK-MED ONCE .ROUTE ; Start 05/11/20 at 01:40; Stop 05/11/20 at 01:41; Status DC Gelatin (Gelfoam Size 100) 1 each STK-MED ONCE .ROUTE ; Start 05/11/20 at 01:41; Stop 05/11/20 at 01:42; Status DC Iohexol (Omnipaque 300 Mg/ml) 50 ml STK-MED ONCE .ROUTE ; Start 05/11/20 at 01:41; Stop 05/11/20 at 01:42; Status DC Cellulose (Surgicel Fibrillar 1x2) 1 each STK-MED ONCE .ROUTE Last administered on 05/11/20at 15:49; Start 05/11/20 at 01:42; Stop 05/11/20 at 01:42; Status DC Thrombin (Thrombin Topical) 5,000 unit STK-MED ONCE .ROUTE ; Start 05/11/20 at 01:42; Stop 05/11/20 at 01:42; Status DC Papaverine HCl 60 mg STK-MED ONCE .ROUTE ; Start 05/11/20 at 01:42; Stop 05/11/20 at 01:42; Status DC Thrombin 20,000 unit STK-MED ONCE TP ; Start 05/11/20 at 01:42; Stop 05/11/20 at 01:42; Status DC Ondansetron HCl (Zofran) 4 mg PRN Q6HRS PRN IV NAUSEA/VOMITING; Start 05/11/20 at 01:45; Stop 05/12/20 at 01:44; Status DC Fentanyl Citrate (Fentanyl 2ml Vial) 25 mcg PRN Q5MIN PRN IV MILD PAIN 1-3; Start 05/11/20 at 01:45; Stop 05/12/20 at 01:44; Status DC Fentanyl Citrate (Fentanyl 2ml Vial) 50 mcg PRN Q5MIN PRN IV MODERATE TO SEVERE PAIN; Start 05/11/20 at 01:45; Stop 05/12/20 at 01:44; Status DC Morphine Sulfate (Morphine Sulfate) 1 mg PRN Q10MIN PRN IV SEVERE PAIN 7-10; Start 05/11/20 at 01:45; Stop 05/12/20 at 01:44; Status DC Ringer's Solution 1,000 ml @ 30 mls/hr Q24H IV ; Start 05/11/20 at 01:45; Stop 05/11/20 at 13:44; Status DC Lidocaine HCl (Xylocaine-Mpf 1% 2ml Vial) 2 ml PRN 1X PRN ID PRIOR TO IV START; Start 05/11/20 at 01:45; Stop 05/12/20 at 01:44; Status DC Hydromorphone HCl (Dilaudid) 0.5 mg PRN Q10MIN PRN IV SEV PAIN, Second choice; Start 05/11/20 at 01:45; Stop 05/12/20 at 01:44; Status DC Prochlorperazine Edisylate (Compazine) 5 mg PACU PRN PRN IV NAUSEA, MRX1; Start 05/11/20 at 01:45; Stop 05/12/20 at 01:44; Status DC Succinylcholine Chloride (Anectine) 200 mg STK-MED ONCE .ROUTE ; Start 05/11/20 at 01:47; Stop 05/11/20 at 01:47; Status DC Rocuronium [place] (Zemuron) 50 mg STK-MED ONCE .ROUTE ; Start 05/11/20 at 01:47; Stop 05/11/20 at 01:47; Status DC Midazolam HCl (Versed) 2 mg STK-MED ONCE .ROUTE ; Start 05/11/20 at 01:47; Stop 05/11/20 at 01:47; Status DC Dexamethasone Sodium Phosphate (Decadron) 4 mg STK-MED ONCE .ROUTE ; Start 05/11/20 at 01:48; Stop 05/11/20 at 01:48; Status DC Propofol (Diprivan) 200 mg STK-MED ONCE IV ; Start 05/11/20 at 01:48; Stop 05/11/20 at 01:48; Status DC Lidocaine HCl (Lidocaine Pf 2% Vial) 5 ml STK-MED ONCE .ROUTE ; Start 05/11/20 at 01:48; Stop 05/11/20 at 01:48; Status DC Heparin Sodium (Porcine) 5000 unit/Sodium Chloride 505 ml @ 505 mls/hr 1X ONCE IRR Last administered on 05/11/20at 03:15; Start 05/11/20 at 02:00; Stop 05/11/20 at 02:59; Status DC Cefazolin Sodium 1 gm/Sodium Chloride 500 ml @ 500 mls/hr 1X ONCE IRR Last administered on 05/11/20at 03:13; Start 05/11/20 at 02:00; Stop 05/11/20 at 02:59; Status DC Alteplase, Recombinant (Cathflo) 4 mg 1X ONCE INT CAT ; Start 05/11/20 at 02:00; Stop 05/11/20 at 02:01; Status DC Morphine Sulfate (Morphine Sulfate) 2 mg PRN Q2HR PRN IV PAIN Last administered on 05/13/20at 09:58; Start 05/11/20 at 02:15 Oxycodone/ Acetaminophen (Percocet 5/325) 1 tab PRN Q4HRS PRN PO PAIN Last administered on 05/14/20at 03:55; Start 05/11/20 at 02:15 Cefazolin Sodium (Ancef) 1 gm Q8HRS IVP Last administered on 05/14/20at 06:10; Start 05/11/20 at 06:00 Ondansetron HCl (Zofran) 4 mg PRN Q6HRS PRN IVP NAUSEA/VOMITING; Start 05/11/20 at 02:30 Aspirin (Alo Aspirin) 81 mg DAILYWBKFT PO ; Start 05/11/20 at 08:00; Stop 05/11/20 at 11:29; Status DC Heparin Sodium (Porcine) (Heparin Sodium) 10,000 unit STK-MED ONCE .ROUTE ; Start 05/11/20 at 02:56; Stop 05/11/20 at 02:56; Status DC Fentanyl Citrate (Fentanyl 2ml Vial) 100 mcg STK-MED ONCE .ROUTE ; Start 05/11/20 at 03:11; Stop 05/11/20 at 03:11; Status DC Info (Anti-Coagulation Monitoring By Pharmacy) 1 each PRN DAILY PRN MC SEE COMMENTS Last administered on 05/11/20at 10:17; Start 05/11/20 at 09:45 Aspirin (Ecotrin) 81 mg DAILYWBKFT PO Last administered on 05/13/20at 08:26; Start 05/12/20 at 08:00 Sodium Bicarbonate (Sodium Bicarb Adult 8.4% Syr) 50 meq STK-MED ONCE .ROUTE ; Start 05/11/20 at 04:02; Stop 05/11/20 at 13:26; Status DC Fentanyl Citrate (Fentanyl 2ml Vial) 100 mcg STK-MED ONCE .ROUTE ; Start 05/11/20 at 05:27; Stop 05/11/20 at 13:26; Status DC Lactobacillus Rhamnosus (Culturelle) 1 cap BID PO Last administered on 05/13/20at 20:28; Start 05/11/20 at 21:00 Sodium Chloride 1,000 ml @ 75 mls/hr [id number] IV Last administered on 05/13/20at 18:27; Start 05/11/20 at 13:30 Cyclobenzaprine HCl (Flexeril) 10 mg TID PO Last administered on 05/13/20at 20:28; Start 05/11/20 at 21:00 Lisinopril (Prinivil) 20 mg DAILY PO Last administered on 05/13/20at 08:26; Start 05/12/20 at 09:00 Trazodone HCl (Desyrel) 50 mg QHS PO Last administered on 05/13/20at 20:28; Start 05/11/20 at 21:00 Iohexol (Omnipaque 350 Mg/ml) 90 ml 1X ONCE IV Last administered on 05/12/20at 10:17; Start 05/12/20 at 10:00; Stop 05/12/20 at 10:01; Status DC Info (CONTRAST GIVEN -- Rx MONITORING) 1 each PRN DAILY PRN MC SEE COMMENTS; Start 05/12/20 at 10:00; Stop 05/14/20 at 09:59; Status DC Heparin Sodium/ Dextrose 250 ml @ 10 mls/hr CONT PRN IV PER PROTOCOL Last administered on 05/13/20at 18:32; Start 05/12/20 at 11:30 Heparin Sodium (Porcine) (Heparin Sodium) 2,850 unit PRN Q6HRS PRN IV FOR UFH LEVEL LESS THAN 0.2 Last administered on 05/12/20at 20:18; Start 05/12/20 at 11:30 Multivitamins/ Minerals (I-Jeffrey) 1 tab DAILY PO Last administered on 05/13/20at 08:26; Start 05/13/20 at 09:00 Cefazolin Sodium (Ancef) 1 gm 1X PRN IVP PRIOR TO PROCEDURE; Start 05/13/20 at 08:30; Stop 05/14/20 at 15:00 Bacitracin 81886 unit/Sodium Chloride 500 ml @ 500 mls/hr 1X ONCE IRR ; Start 05/14/20 at 06:00; Stop 05/14/20 at 06:59; Status DC Fentanyl Citrate (Fentanyl 2ml Vial) 25 mcg PRN Q5MIN PRN IV MILD PAIN 1-3; Start 05/14/20 at 07:00; Stop 05/15/20 at 06:59 Fentanyl Citrate (Fentanyl 2ml Vial) 50 mcg PRN Q5MIN PRN IV MODERATE TO SEVERE PAIN; Start 05/14/20 at 07:00; Stop 05/15/20 at 06:59 Morphine Sulfate (Morphine Sulfate) 1 mg PRN Q10MIN PRN IV SEVERE PAIN 7-10; Start 05/14/20 at 07:00; Stop 05/15/20 at 06:59 Ringer's Solution 1,000 ml @ 30 mls/hr Q24H IV ; Start 05/14/20 at 07:00; Stop 05/14/20 at 18:59 Hydromorphone HCl (Dilaudid) 0.5 mg PRN Q10MIN PRN IV SEV PAIN, Second choice; Start 05/14/20 at 07:00; Stop 05/15/20 at 06:59 Prochlorperazine Edisylate (Compazine) 5 mg PACU PRN PRN IV NAUSEA, MRX1; Start 05/14/20 at 07:00; Stop 05/15/20 at 06:59 Active Scripts Active Reported Viagra (Sildenafil Citrate) 50 Mg Tablet 1 Tab PO UD Cyclobenzaprine Hcl 10 Mg Tablet 1 Tab PO TID Proair Hfa Inhaler (Albuterol Sulfate) 8.5 Gm Hfa.aer.ad 2 Puff IH PRN Q4-6HRS PRN 21 Days Trazodone Hcl 50 Mg Tablet 1 Tab PO QHS Meloxicam 15 Mg Tablet 1 Tab PO DAILY 30 Days Lisinopril 20 Mg Tablet 1 Tab PO DAILY Vitals/I & O Vital Sign - Last 24 Hours 05/13/20 05/13/20 05/13/20 05/13/20 14:36 19:40 20:00 20:28 Temp 97.9 98.5 97.9 98.5 Pulse 95 96 Resp 18 22 B/P (MAP) 107/54 (71) 111/57 (75) Pulse Ox 94 98 98 O2 Delivery Room Air Room Air Room Air Room Air 05/13/20 05/13/20 05/14/20 05/14/20 21:28 23:00 03:00 03:55 Temp 98.7 98.5 98.7 98.5 Pulse 77 82 Resp 20 20 B/P (MAP) 105/57 (73) 144/77 (99) Pulse Ox 98 95 96 95 O2 Delivery Room Air Room Air Room Air Room Air O2 Flow Rate 2.0 05/14/20 05/14/20 05/14/20 05/14/20 04:55 07:00 07:41 11:00 Temp 98.5 97.7 98.5 97.7 Pulse 61 92 Resp 20 20 B/P (MAP) 140/68 (92) 114/40 (64) Pulse Ox 95 100 94 O2 Delivery Room Air Room Air Room Air Room Air Intake and Output 05/13/20 05/13/20 05/14/20 15:00 23:00 07:00 Intake Total 200 ml 950 ml 2116 ml Output Total 1450 ml Balance 200 ml -500 ml 2116 ml Justicifation of Admission Dx: Justifications for Admission: Justification of Admission Dx: Yes ANGELICA JONAS MD May 14, 2020 11:21
[2020-05-14] MEDS ORDERED: ONDANSETRON PF 4 MG/2 ML VIAL. ONE (12:11)
[2020-05-14] MEDS ORDERED: fentaNYL PF VIAL 100 MCG/2 ML VIAL ONE ×2 (12:11→12:57)
[2020-05-14] MEDS ORDERED: LIDOCAINE 2% PF 5 ML VIAL. ONE (12:11)
[2020-05-14] MEDS ORDERED: PROPOFOL 10 MG/ML (20ML) VIAL. IV ONE ×2 (12:11→12:58)
[2020-05-14] MEDS ORDERED: DEXAMETHASONE SOD PHOS 4 MG/ML VIAL ONE (12:11)
[2020-05-14] MEDS ORDERED: SEVOFLURANE 31 TO 60 MINUTES. IH ONE (12:57)
--- NOTE | 2020-05-14 13:08 | PDOC ---
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 S/P Right common femoral artery cutdown with thrombectomy of the right iliac artery. Right common femoral artery and profunda artery endarterectomy. Right calf 4-compartment fasciotomies through an open medial and lateral incision. Post-Op Diagnosis same Procedure Performed Right leg closure fasciotomy sites Surgeon Dr. Rondon Automation Analyst Briana Hartmann, JERMAINE Anesthesia Type: General Blood Loss 20cc Specimens Obtained none Findings easily closed without tension Complications none Operative Note see dictated note BRIANA HARTMANN [employer] SPREADER OPERATOR May 14, 2020 13:08
--- NOTE | 2020-05-14 13:10 | OP ---
DATE OF SURGERY: 05/14/2020 VASCULAR SURGERY OPERATIVE NOTE ATTENDING SURGEON: Mamadou Mujica DO COMMUNITY ORGANIZATION AIDE: Kaitlin Novoa NP PREOPERATIVE DIAGNOSES: Atherosclerosis with claudication of the right lower extremity, status post thrombectomy and right lower extremity fasciotomy. POSTOPERATIVE DIAGNOSES: Atherosclerosis with claudication of the right lower extremity, status post thrombectomy and right lower extremity fasciotomy. PROCEDURE: Right lower extremity medial and lateral fasciotomy incision closure with delayed primary closure. ANESTHESIA: General. SPECIMENS: None. ESTIMATED BLOOD LOSS: 20 mL. COMPLICATIONS: None. PREOPERATIVE INDICATIONS: The patient is a very pleasant 59-year-old male who underwent right lower extremity revascularization followed by right lower extremity fasciotomies. He now presents for fasciotomy site closure. He was consented for the procedure and understood all risks, benefits, and alternatives of the procedure prior to proceeding. OPERATIVE PROCEDURE: The patient was brought to the operating suite and placed in supine position. After establishing appropriate anesthesia, the right lower extremity was prepped and draped in sterile fashion. Next, a timeout procedure was performed. It was confirmed that the patient did receive appropriate perioperative antibiotics and the correct operative site was marked and draped. Following this, both fasciotomy sites were copiously washed out with antibiotic-impregnated solution for approximately a liter of solution. The muscles appeared nice and healthy and there was no active bleeding from any of the locations from the fasciotomies. Next, a 0 Prolene suture was used to close the incision; first starting medially in a running fashion followed bilaterally in a running fashion. Sterile dressings were placed including a compressive wrap. The patient tolerated the procedure well and was transferred to the postanesthesia care unit in stable condition. MAMADOU MUJICA DO DR: AVERY/pool JOB#: [id number] / [id number]
[2020-05-14] MEDS: MORPHINE SULFATE 2 MG/ML VIAL. IV PRN ×2 (13:42→13:56)
[2020-05-14 15:00] VITALS: BP 144/83
[2020-05-14] MEDS: HEPARIN 25,000UTS/250ML PREMIX 250 ML IV PRN (15:20)
[2020-05-14 19:25] VITALS: BP 116/80
[2020-05-14] MEDS: traZODone 50 MG TABLET. PO SCH (20:46)
[2020-05-14 22:50] VITALS: BP 110/68
[2020-05-15 03:15] VITALS: BP 102/61
[2020-05-15 03:57] LABS: HEMATOCRIT 32.3 % (39.0-53.0); HEMOGLOBIN 11.4 g/dL (13.0-17.5); RED BLOOD COUNT 3.09 x10^6/uL (4.30-5.70); RED CELL DISTRIBUTION WIDTH 13.1 % (11.5-14.5); WHITE BLOOD COUNT 9.7 x10^3/uL (4.0-11.0)
[2020-05-15] MEDS: ceFAZolin SODIUM IV Push 1 GM VIAL. IVP SCH ×3 (05:36→21:31)
[2020-05-15 07:00] VITALS: BP 122/49
[2020-05-15] MEDS: MULTIVITAMIN I-VITE TABLET. PO SCH (09:46)
[2020-05-15] MEDS: CYCLOBENZAPRINE 10 MG TABLET. PO SCH ×3 (09:46→21:30)
[2020-05-15] MEDS: ASPIRIN ENTERIC COATED 81 MG TABLET.DR. PO SCH (09:46)
[2020-05-15] MEDS: LACTOBACILLUS RHAMNOSUS GG 1 CAPSULE. PO SCH ×2 (09:47→21:30)
[2020-05-15] MEDS: LISINOPRIL 20 MG TABLET PO SCH (09:47)
--- NOTE | 2020-05-15 10:44 | PDOC ---
SURGICAL PROGRESS NOTE Subjective Patient was seen and examined at the bedside this morning and is doing well. His pain is under good control. Vital Signs Vital Signs Date Time Temp Pulse Resp B/P (MAP) Pulse Ox O2 Delivery O2 Flow Rate FiO2 05/15/20 09:47 70 102/61 05/15/20 07:00 98.4 16 96 Room Air 98.4 05/14/20 19:30 10.0 I&O Intake and Output 05/15/20 07:00 Intake Total 2500 ml Output Total 3053 ml Balance -553 ml Intake Oral 1700 ml IV Total 800 ml Output Urine Total 3050 ml Estimated Blood Loss 3 ml General: Alert Heart: Regular rate, Normal S1, Normal S2 Skin: Other (Right lower extremity surgical wounds are clean, dry, and intact.) Neuro: Strength at 5/5 X4 ext, Normal tone, Sensation intact, Cranial nerves 3- 12 NL Labs Laboratory Tests Test 05/13/20 15:00 05/14/20 13:35 05/14/20 21:40 05/15/20 01:35 Coronavirus (COVID-19)(PCR) Negative (NEGATIVE) Heparin Anti-Xa Act, Unfractionated < 0.10 IU/mL (0.30-0.70) 0.17 IU/mL (0.30-0.70) Lactic Acid Level 0.9 mmol/L (0.4-2.0) 3.7 mmol/L (0.4-2.0) 1.7 mmol/L (0.4-2.0) Test 05/15/20 03:30 05/15/20 09:25 White Blood Count 9.7 x10^3/uL (4.0-11.0) Red Blood Count 3.09 x10^6/uL (4.30-5.70) Hemoglobin 11.4 g/dL (13.0-17.5) Hematocrit 32.3 % (39.0-53.0) Mean Corpuscular Volume 105 fL (79-100) Mean Corpuscular Hemoglobin 37 pg (25-35) Mean Corpuscular Hemoglobin Concent 35 g/dL (31-37) Red Cell Distribution Width 13.1 % (11.5-14.5) Platelet Count 226 x10^3/uL (140-400) Heparin Anti-Xa Act, Unfractionated 0.37 IU/mL (0.30-0.70) < 0.10 IU/mL (0.30-0.70) Lactic Acid Level 1.7 mmol/L (0.4-2.0) Laboratory Tests Test 05/14/20 13:35 05/14/20 21:40 05/15/20 01:35 05/15/20 03:30 Heparin Anti-Xa Act, Unfractionated < 0.10 IU/mL (0.30-0.70) 0.17 IU/mL (0.30-0.70) 0.37 IU/mL (0.30-0.70) Lactic Acid Level 0.9 mmol/L (0.4-2.0) 3.7 mmol/L (0.4-2.0) 1.7 mmol/L (0.4-2.0) 1.7 mmol/L (0.4-2.0) White Blood Count 9.7 x10^3/uL (4.0-11.0) Red Blood Count 3.09 x10^6/uL (4.30-5.70) Hemoglobin 11.4 g/dL (13.0-17.5) Hematocrit 32.3 % (39.0-53.0) Mean Corpuscular Volume 105 fL (79-100) Mean Corpuscular Hemoglobin 37 pg (25-35) Mean Corpuscular Hemoglobin Concent 35 g/dL (31-37) Red Cell Distribution Width 13.1 % (11.5-14.5) Platelet Count 226 x10^3/uL (140-400) Test 05/15/20 09:25 Heparin Anti-Xa Act, Unfractionated < 0.10 IU/mL (0.30-0.70) Assessment/Plan Right lower extremity fasciotomy closure--patient is doing well from his fasciotomy closure yesterday. I will take down the bandages tomorrow. We will transition the patient to oral anticoagulant with novel anticoagulant agent. His heparin infusion can be discontinued. All questions were answered to his satisfaction this morning. Justicifation of Admission Dx: Justifications for Admission: Justification of Admission Dx: Yes NICO MUJICA DO May 15, 2020 10:44
[2020-05-15] MEDS: IV NORMAL SALINE 1000ML BAG 1,000 ML IV SCH (10:50)
[2020-05-15 11:00] VITALS: BP 138/62
--- NOTE | 2020-05-15 12:34 | PDOC ---
PROGRESS NOTES Chief Complaint Chief Complaint A/P Right lower extremity acute limb-threatening ischemia secondary to thrombosis of his right iliac artery s/p Right common femoral artery cutdown with thrombectomy of the right iliac, Right common femoral artery and profunda artery endarterectomy, Right calf 4-compartment fasciotomies through an open medial and lateral incision. 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 plan heparin drip off. transition to oral ac trell per sx cards consulted:Outpatient event monitor for evaluation for AFIB has been arranged Follow up in our office with Dr. Stahl June 24 at 1:00pm. dressing changes per vascular sx daily ASA full code need to arrange for home health prior to discharge. History of Present Illness History of Present Illness no acute issues overnight. pain controlled. tolerating PO diet. for closure of fasc today. Vitals Vitals Vital Signs Date Time Temp Pulse Resp B/P (MAP) Pulse Ox O2 Delivery O2 Flow Rate FiO2 05/15/20 11:00 98.2 80 16 138/62 (87) 93 Room Air 98.2 05/14/20 19:30 10.0 Physical Exam General: Alert Heart: Regular rate, Normal S1, Normal S2 Abdomen: Soft, No tenderness Extremities: Other (RLE Rook boot, DRSG intact. sensation intact) Skin: Other (Right lower extremity surgical wounds are clean, dry, and intact.) Labs LABS Laboratory Tests Test 05/14/20 13:35 05/14/20 21:40 05/15/20 01:35 05/15/20 03:30 Heparin Anti-Xa Act, Unfractionated < 0.10 IU/mL (0.30-0.70) 0.17 IU/mL (0.30-0.70) 0.37 IU/mL (0.30-0.70) Lactic Acid Level 0.9 mmol/L (0.4-2.0) 3.7 mmol/L (0.4-2.0) 1.7 mmol/L (0.4-2.0) 1.7 mmol/L (0.4-2.0) White Blood Count 9.7 x10^3/uL (4.0-11.0) Red Blood Count 3.09 x10^6/uL (4.30-5.70) Hemoglobin 11.4 g/dL (13.0-17.5) Hematocrit 32.3 % (39.0-53.0) Mean Corpuscular Volume 105 fL (79-100) Mean Corpuscular Hemoglobin 37 pg (25-35) Mean Corpuscular Hemoglobin Concent 35 g/dL (31-37) Red Cell Distribution Width 13.1 % (11.5-14.5) Platelet Count 226 x10^3/uL (140-400) Test 05/15/20 09:25 Heparin Anti-Xa Act, Unfractionated < 0.10 IU/mL (0.30-0.70) Comment Review of Relevant I have reviewed the following items [place] (where applicable) has been applied. Labs Laboratory Tests Test 05/13/20 15:00 05/14/20 13:35 05/14/20 21:40 05/15/20 01:35 Coronavirus (COVID-19)(PCR) Negative (NEGATIVE) Heparin Anti-Xa Act, Unfractionated < 0.10 IU/mL (0.30-0.70) 0.17 IU/mL (0.30-0.70) Lactic Acid Level 0.9 mmol/L (0.4-2.0) 3.7 mmol/L (0.4-2.0) 1.7 mmol/L (0.4-2.0) Test 05/15/20 03:30 05/15/20 09:25 White Blood Count 9.7 x10^3/uL (4.0-11.0) Red Blood Count 3.09 x10^6/uL (4.30-5.70) Hemoglobin 11.4 g/dL (13.0-17.5) Hematocrit 32.3 % (39.0-53.0) Mean Corpuscular Volume 105 fL (79-100) Mean Corpuscular Hemoglobin 37 pg (25-35) Mean Corpuscular Hemoglobin Concent 35 g/dL (31-37) Red Cell Distribution Width 13.1 % (11.5-14.5) Platelet Count 226 x10^3/uL (140-400) Heparin Anti-Xa Act, Unfractionated 0.37 IU/mL (0.30-0.70) < 0.10 IU/mL (0.30-0.70) Lactic Acid Level 1.7 mmol/L (0.4-2.0) Laboratory Tests Test 05/14/20 13:35 05/14/20 21:40 05/15/20 01:35 05/15/20 03:30 Heparin Anti-Xa Act, Unfractionated < 0.10 IU/mL (0.30-0.70) 0.17 IU/mL (0.30-0.70) 0.37 IU/mL (0.30-0.70) Lactic Acid Level 0.9 mmol/L (0.4-2.0) 3.7 mmol/L (0.4-2.0) 1.7 mmol/L (0.4-2.0) 1.7 mmol/L (0.4-2.0) White Blood Count 9.7 x10^3/uL (4.0-11.0) Red Blood Count 3.09 x10^6/uL (4.30-5.70) Hemoglobin 11.4 g/dL (13.0-17.5) Hematocrit 32.3 % (39.0-53.0) Mean Corpuscular Volume 105 fL (79-100) Mean Corpuscular Hemoglobin 37 pg (25-35) Mean Corpuscular Hemoglobin Concent 35 g/dL (31-37) Red Cell Distribution Width 13.1 % (11.5-14.5) Platelet Count 226 x10^3/uL (140-400) Test 05/15/20 09:25 Heparin Anti-Xa Act, Unfractionated < 0.10 IU/mL (0.30-0.70) Medications Current Medications Fentanyl Citrate (Fentanyl 2ml Vial) 75 mcg 1X ONCE IVP Last administered on 05/10/20at 21:10; Start 05/10/20 at 21:00; Stop 05/10/20 at 21:01; Status DC Hydromorphone HCl (Dilaudid) 1 mg 1X ONCE IV Last administered on 05/10/20at 22:04; Start 05/10/20 at 22:00; Stop 05/10/20 at 22:01; Status DC Iohexol (Omnipaque 350 Mg/ml) 75 ml 1X ONCE IV Last administered on 05/10/20at 23:12; Start 05/10/20 at 23:15; Stop 05/10/20 at 23:16; Status DC Info (CONTRAST GIVEN -- Rx MONITORING) 1 each PRN DAILY PRN MC SEE COMMENTS; Start 05/10/20 at 23:15; Stop 05/12/20 at 09:51; Status DC Heparin Sodium (Porcine) (Heparin Sodium) 9,100 unit 1X ONCE IV ; Start 05/11/20 at 00:30; Stop 05/11/20 at 00:31; Status DC Heparin Sodium/ Dextrose 250 ml @ 7 mls/hr CONT PRN IV PER PROTOCOL Last administered on 05/11/20at 00:51; Start 05/11/20 at 00:30; Stop 05/12/20 at 11:38; Status DC Heparin Sodium (Porcine) (Heparin Sodium) 3,400 unit PRN Q6HRS PRN IV FOR UFH LEVEL LESS THAN 0.2; Start 05/11/20 at 00:30; Stop 05/12/20 at 11:40; Status DC Heparin Sodium (Porcine) (Heparin Sodium) 1,700 unit PRN Q6HRS PRN IV FOR UFH LEVEL 0.2 - 0.29; Start 05/11/20 at 00:30; Stop 05/12/20 at 11:41; Status DC Hydromorphone HCl (Dilaudid) 1 mg 1X ONCE IV Last administered on 05/11/20at 00:41; Start 05/11/20 at 00:30; Stop 05/11/20 at 00:31; Status DC Ondansetron HCl (Zofran) 4 mg PRN Q8HRS PRN IV NAUSEA/VOMITING; Start 05/11/20 at 00:45; Stop 05/12/20 at 00:45; Status DC Heparin Sodium (Porcine) (Heparin Sodium) 5,000 unit 1X ONCE IV Last administered on 05/11/20at 00:48; Start 05/11/20 at 00:48; Stop 05/11/20 at 01:19; Status DC Sodium Chloride 1,000 ml @ 1,000 mls/hr 1X ONCE IV ; Start 05/11/20 at 01:30; Stop 05/11/20 at 02:29; Status DC Lidocaine HCl (Lidocaine 1% 20ml Vial) 20 ml STK-MED ONCE .ROUTE ; Start 05/11/20 at 01:40; Stop 05/11/20 at 01:41; Status DC Bupivacaine HCl (Sensorcaine Mpf 0.5%) 30 ml STK-MED ONCE .ROUTE ; Start at 01:40; Stop 05/11/20 at 01:41; Status DC Gelatin (Gelfoam Size 100) 1 each STK-MED ONCE .ROUTE ; Start 05/11/20 at 0 1:41; Stop 05/11/20 at 01:42; Status DC Iohexol (Omnipaque 300 Mg/ml) 50 ml STK-MED ONCE .ROUTE ; Start 05/11/20 at 01:41; Stop 05/11/20 at 01:42; Status DC Cellulose (Surgicel Fibrillar 1x2) 1 each STK-MED ONCE .ROUTE Last administered on 05/11/20at 15:49; Start 05/11/20 at 01:42; Stop 05/11/20 at 01:42; Status DC Thrombin (Thrombin Topical) 5,000 unit STK-MED ONCE .ROUTE ; Start 05/11/20 at 01:42; Stop 05/11/20 at 01:42; Status DC Papaverine HCl 60 mg STK-MED ONCE .ROUTE ; Start 05/11/20 at 01:42; Stop 05/11/20 at 01:42; Status DC Thrombin 20,000 unit STK-MED ONCE TP ; Start 05/11/20 at 01:42; Stop 05/11/20 at 01:42; Status DC Ondansetron HCl (Zofran) 4 mg PRN Q6HRS PRN IV NAUSEA/VOMITING; Start 05/11/20 at 01:45; Stop 05/12/20 at 01:44; Status DC Fentanyl Citrate (Fentanyl 2ml Vial) 25 mcg PRN Q5MIN PRN IV MILD PAIN 1-3; Start 05/11/20 at 01:45; Stop 05/12/20 at 01:44; Status DC Fentanyl Citrate (Fentanyl 2ml Vial) 50 mcg PRN Q5MIN PRN IV MODERATE TO SEVERE PAIN; Start 05/11/20 at 01:45; Stop 05/12/20 at 01:44; Status DC Morphine Sulfate (Morphine Sulfate) 1 mg PRN Q10MIN PRN IV SEVERE PAIN 7-10; Start 05/11/20 at 01:45; Stop 05/12/20 at 01:44; Status DC Ringer's Solution 1,000 ml @ 30 mls/hr Q24H IV ; Start 05/11/20 at 01:45; Stop 05/11/20 at 13:44; Status DC Lidocaine HCl (Xylocaine-Mpf 1% 2ml Vial) 2 ml PRN 1X PRN ID PRIOR TO IV START; Start 05/11/20 at 01:45; Stop 05/12/20 at 01:44; Status DC Hydromorphone HCl (Dilaudid) 0.5 mg PRN Q10MIN PRN IV SEV PAIN, Second choice; Start 05/11/20 at 01:45; Stop 05/12/20 at 01:44; Status DC Prochlorperazine Edisylate (Compazine) 5 mg PACU PRN PRN IV NAUSEA, MRX1; Start 05/11/20 at 01:45; Stop 05/12/20 at 01:44; Status DC Succinylcholine Chloride (Anectine) 200 mg STK-MED ONCE .ROUTE ; Start 05/11/20 at 01:47; Stop 05/11/20 at 01:47; Status DC Rocuronium [place] (Zemuron) 50 mg STK-MED ONCE .ROUTE ; Start 05/11/20 at 01:4 7; Stop 05/11/20 at 01:47; Status DC Midazolam HCl (Versed) 2 mg STK-MED ONCE .ROUTE ; Start 05/11/20 at 01:47; Stop 05/11/20 at 01:47; Status DC Dexamethasone Sodium Phosphate (Decadron) 4 mg STK-MED ONCE .ROUTE ; Start 05/11/20 at 01:48; Stop 05/11/20 at 01:48; Status DC Propofol (Diprivan) 200 mg STK-MED ONCE IV ; Start 05/11/20 at 01:48; Stop 05/11/20 at 01:48; Status DC Lidocaine HCl (Lidocaine Pf 2% Vial) 5 ml STK-MED ONCE .ROUTE ; Start 05/11/20 at 01:48; Stop 05/11/20 at 01:48; Status DC Heparin Sodium (Porcine) 5000 unit/Sodium Chloride 505 ml @ 505 mls/hr 1X ONCE IRR Last administered on 05/11/20at 03:15; Start 05/11/20 at 02:00; Stop 05/11/20 at 02:59; Status DC Cefazolin Sodium 1 gm/Sodium Chloride 500 ml @ 500 mls/hr 1X ONCE IRR Last administered on 05/11/20at 03:13; Start 05/11/20 at 02:00; Stop 05/11/20 at 02:59; Status DC Alteplase, Recombinant (Cathflo) 4 mg 1X ONCE INT CAT ; Start 05/11/20 at 02:00; Stop 05/11/20 at 02:01; Status DC Morphine Sulfate (Morphine Sulfate) 2 mg PRN Q2HR PRN IV PAIN Last administered on 05/13/20at 09:58; Start 05/11/20 at 02:15 Oxycodone/ Acetaminophen (Percocet 5/325) 1 tab PRN Q4HRS PRN PO PAIN Last administered on 05/14/20at 20:46; Start 05/11/20 at 02:15 Cefazolin Sodium (Ancef) 1 gm Q8HRS IVP Last administered on 05/15/20at 05:36; Start 05/11/20 at 06:00 Ondansetron HCl (Zofran) 4 mg PRN Q6HRS PRN IVP NAUSEA/VOMITING; Start 05/11/20 at 02:30 Aspirin (Alo Aspirin) 81 mg DAILYWBKFT PO ; Start 05/11/20 at 08:00; Stop 05/11/20 at 11:29; Status DC Heparin Sodium (Porcine) (Heparin Sodium) 10,000 unit STK-MED ONCE .ROUTE ; Start 05/11/20 at 02:56; Stop 05/11/20 at 02:56; Status DC Fentanyl Citrate (Fentanyl 2ml Vial) 100 mcg STK-MED ONCE .ROUTE ; Start 05/11/20 at 03:11; Stop 05/11/20 at 03:11; Status DC Info (Anti-Coagulation Monitoring By Pharmacy) 1 each PRN DAILY PRN MC SEE COMMENTS Last administered on 05/11/20at 10:17; Start 05/11/20 at 09:45 Aspirin (Ecotrin) 81 mg DAILYWBKFT PO Last administered on 05/15/20at 09:46; Start 05/12/20 at 08:00 Sodium Bicarbonate (Sodium Bicarb Adult 8.4% Syr) 50 meq STK-MED ONCE .ROUTE ; Start 05/11/20 at 04:02; Stop 05/11/20 at 13:26; Status DC Fentanyl Citrate (Fentanyl 2ml Vial) 100 mcg STK-MED ONCE .ROUTE ; Start 05/11/20 at 05:27; Stop 05/11/20 at 13:26; Status DC Lactobacillus Rhamnosus (Culturelle) 1 cap BID PO Last administered on 05/15/20at 09:47; Start 05/11/20 at 21:00 Sodium Chloride 1,000 ml @ 75 mls/hr [id number] IV Last administered on 05/14/20at 08:10; Start 05/11/20 at 13:30 Cyclobenzaprine HCl (Flexeril) 10 mg TID PO Last administered on 05/15/20at 09:46; Start 05/11/20 at 21:00 Lisinopril (Prinivil) 20 mg DAILY PO Last administered on 05/15/20at 09:47; Start 05/12/20 at 09:00 Trazodone HCl (Desyrel) 50 mg QHS PO Last administered on 05/14/20at 20:46; Start 05/11/20 at 21:00 Iohexol (Omnipaque 350 Mg/ml) 90 ml 1X ONCE IV Last administered on 05/12/20at 10:17; Start 05/12/20 at 10:00; Stop 05/12/20 at 10:01; Status DC Info (CONTRAST GIVEN -- Rx MONITORING) 1 each PRN DAILY PRN MC SEE COMMENTS; Start 05/12/20 at 10:00; Stop 05/14/20 at 09:59; Status DC Heparin Sodium/ Dextrose 250 ml @ 10 mls/hr CONT PRN IV PER PROTOCOL Last administered on 05/14/20at 15:20; Start 05/12/20 at 11:30; Stop 05/15/20 at 11:33; Status DC Heparin Sodium (Porcine) (Heparin Sodium) 2,850 unit PRN Q6HRS PRN IV FOR UFH LEVEL LESS THAN 0.2 Last administered on 05/12/20at 20:18; Start 05/12/20 at 11: 30 Multivitamins/ Minerals (I-Jeffrey) 1 tab DAILY PO Last administered on 05/15/20at 09:46; Start 05/13/20 at 09:00 Cefazolin Sodium (Ancef) 1 gm 1X PRN IVP PRIOR TO PROCEDURE; Start 05/13/20 at 08:30; Stop 05/14/20 at 15:00; Status DC Bacitracin 79544 unit/Sodium Chloride 500 ml @ 500 mls/hr 1X ONCE IRR Last administered on 05/14/20at 13:18; Start 05/14/20 at 06:00; Stop 05/14/20 at 06:59; Status DC Fentanyl Citrate (Fentanyl 2ml Vial) 25 mcg PRN Q5MIN PRN IV MILD PAIN 1-3; Start 05/14/20 at 07:00; Stop 05/15/20 at 06:59; Status DC Fentanyl Citrate (Fentanyl 2ml Vial) 50 mcg PRN Q5MIN PRN IV MODERATE TO SEVERE PAIN; Start 05/14/20 at 07:00; Stop 05/15/20 at 06:59; Status DC Morphine Sulfate (Morphine Sulfate) 1 mg PRN Q10MIN PRN IV SEVERE PAIN 7-10 Last administered on 05/14/20at 13:56; Start 05/14/20 at 07:00; Stop 05/15/20 at 06:59; Status DC Ringer's Solution 1,000 ml @ 30 mls/hr Q24H IV Last administered on 05/14/20at 13:10; Start 05/14/20 at 07:00; Stop 05/14/20 at 18:59; Status DC Hydromorphone HCl (Dilaudid) 0.5 mg PRN Q10MIN PRN IV SEV PAIN, Second choice; Start 05/14/20 at 07:00; Stop 05/15/20 at 06:59; Status DC Prochlorperazine Edisylate (Compazine) 5 mg PACU PRN PRN IV NAUSEA, MRX1; Start 05/14/20 at 07:00; Stop 05/15/20 at 06:59; Status DC Ondansetron HCl (Zofran) 4 mg STK-MED ONCE .ROUTE ; Start 05/14/20 at 12:11; Stop 05/14/20 at 12:11; Status DC Propofol (Diprivan) 200 mg STK-MED ONCE IV ; Start 05/14/20 at 12:11; Stop 05/14/20 at 12:11; Status DC Lidocaine HCl (Lidocaine Pf 2% Vial) 5 ml STK-MED ONCE .ROUTE ; Start 05/14/20 at 12:11; Stop 05/14/20 at 12:11; Status DC Dexamethasone Sodium Phosphate (Decadron) 4 mg STK-MED ONCE .ROUTE ; Start 05/14/20 at 12:11; Stop 05/14/20 at 12:11; Status DC Fentanyl Citrate (Fentanyl 2ml Vial) 100 mcg STK-MED ONCE .ROUTE ; Start 05/14/20 at 12:11; Stop 05/14/20 at 12:11; Status DC Sevoflurane (Ultane) 30 ml STK-MED ONCE IH ; Start 05/14/20 at 12:57; Stop 05/14/20 at 12:57; Status DC Fentanyl Citrate (Fentanyl 2ml Vial) 100 mcg STK-MED ONCE .ROUTE ; Start 05/14/20 at 12:57; Stop 05/14/20 at 12:58; Status DC Propofol (Diprivan) 200 mg STK-MED ONCE IV ; Start 05/14/20 at 12:58; Stop 05/14/20 at 12:58; Status DC Rivaroxaban (Xarelto) 20 mg DAILYWSUP PO ; Start 05/15/20 at 17:00 Active Scripts Active Reported Viagra (Sildenafil Citrate) 50 Mg Tablet 1 Tab PO UD Cyclobenzaprine Hcl 10 Mg Tablet 1 Tab PO TID Proair Hfa Inhaler (Albuterol Sulfate) 8.5 Gm Hfa.aer.ad 2 Puff IH PRN Q4-6HRS PRN 21 Days Trazodone Hcl 50 Mg Tablet 1 Tab PO QHS Meloxicam 15 Mg Tablet 1 Tab PO DAILY 30 Days Lisinopril 20 Mg Tablet 1 Tab PO DAILY Vitals/I & O Vital Sign - Last 24 Hours 05/14/20 05/14/20 05/14/20 05/14/20 13:10 13:10 13:25 13:40 Temp 97.3 97.3 Pulse 76 80 84 Resp 20 20 20 B/P (MAP) 126/67 123/68 123/68 Pulse Ox 93 97 97 O2 Delivery Mask Simple Mask Simple Mask Simple Mask O2 Flow Rate 10 10 10 10 05/14/20 05/14/20 05/14/20 05/14/20 13:42 13:55 13:56 15:00 Temp 97.3 97.7 97.3 97.7 Pulse 82 95 Resp 20 B/P (MAP) 132/51 144/83 (103) Pulse Ox 99 93 96 92 O2 Delivery Room Air Room Air Room Air Room Air 05/14/20 05/14/20 05/14/20 05/14/20 17:35 19:25 19:30 20:46 Temp 98.4 98.4 Pulse 93 Resp 18 B/P (MAP) 116/80 (92) Pulse Ox 92 92 O2 Delivery Room Air Room Air Mask Room Air O2 Flow Rate 10.0 05/14/20 05/15/20 05/15/20 05/15/20 22:50 03:15 07:00 09:47 Temp 97.7 97.7 98.4 97.7 97.7 98.4 Pulse 88 70 76 70 Resp 18 18 16 B/P (MAP) 110/68 (82) 102/61 (75) 122/49 (73) 102/61 Pulse Ox 94 91 96 O2 Delivery Room Air Room Air Room Air 05/15/20 11:00 Temp 98.2 98.2 Pulse 80 Resp 16 B/P (MAP) 138/62 (87) Pulse Ox 93 O2 Delivery Room Air Intake and Output 05/14/20 05/14/20 05/15/20 14:59 22:59 06:59 Intake Total 800 ml 600 ml 1100 ml Output Total 503 ml 850 ml 1700 ml Balance 297 ml -250 ml -600 ml Justicifation of Admission Dx: Justifications for Admission: Justification of Admission Dx: Yes ANGELICA JONAS MD May 15, 2020 12:34
[2020-05-15] MEDS: oxyCODONE/APAP 5/325 1 TAB TABLET PO PRN ×2 (13:41→21:30)
[2020-05-15 15:00] VITALS: BP 112/66
[2020-05-15] MEDS ORDERED: RIVAROXABAN 10 MG TABLET. PO SCH (17:00)
[2020-05-15 18:39] VITALS: BP 110/66
[2020-05-15] MEDS: traZODone 50 MG TABLET. PO SCH (21:30)
[2020-05-15 23:00] VITALS: BP 112/60
[2020-05-16 03:00] VITALS: BP 109/55
[2020-05-16] MEDS: oxyCODONE/APAP 5/325 1 TAB TABLET PO PRN ×2 (03:04→09:33)
[2020-05-16] MEDS: ceFAZolin SODIUM IV Push 1 GM VIAL. IVP SCH (06:16)
[2020-05-16 07:00] VITALS: BP 130/83
[2020-05-16] MEDS: ASPIRIN ENTERIC COATED 81 MG TABLET.DR. PO SCH (09:30)
[2020-05-16] MEDS: LISINOPRIL 20 MG TABLET PO SCH (09:30)
[2020-05-16] MEDS: LACTOBACILLUS RHAMNOSUS GG 1 CAPSULE. PO SCH (09:30)
[2020-05-16] MEDS: CYCLOBENZAPRINE 10 MG TABLET. PO SCH (09:30)
[2020-05-16] MEDS: MULTIVITAMIN I-VITE TABLET. PO SCH (09:30)
[2020-05-16 11:00] VITALS: BP 110/58
--- NOTE | 2020-05-16 12:05 | PDOC ---
SURGICAL PROGRESS NOTE Subjective Patient was seen and examined at the bedside today and is doing well. His pain is under good control. Vital Signs Vital Signs Date Time Temp Pulse Resp B/P (MAP) Pulse Ox O2 Delivery O2 Flow Rate FiO2 05/16/20 10:33 Room Air 05/16/20 09:30 79 130/83 05/16/20 07:00 97.6 16 99 97.6 I&O Intake and Output 05/16/20 07:00 Intake Total 1300 ml Output Total 200 ml Balance 1100 ml Intake Oral 1300 ml Output Urine Total 200 ml # Voids 5 Extremities: Other (His right lower extremity fasciotomy sites are clean, dry, and intact. He has excellent triphasic arterial blood flow in the dorsalis pedis and posterior tibial arteries based on Doppler exam.) Labs Laboratory Tests Test 05/14/20 13:35 05/14/20 21:40 05/15/20 01:35 05/15/20 03:30 Heparin Anti-Xa Act, Unfractionated < 0.10 IU/mL (0.30-0.70) 0.17 IU/mL (0.30-0.70) 0.37 IU/mL (0.30-0.70) Lactic Acid Level 0.9 mmol/L (0.4-2.0) 3.7 mmol/L (0.4-2.0) 1.7 mmol/L (0.4-2.0) 1.7 mmol/L (0.4-2.0) White Blood Count 9.7 x10^3/uL (4.0-11.0) Red Blood Count 3.09 x10^6/uL (4.30-5.70) Hemoglobin 11.4 g/dL (13.0-17.5) Hematocrit 32.3 % (39.0-53.0) Mean Corpuscular Volume 105 fL (79-100) Mean Corpuscular Hemoglobin 37 pg (25-35) Mean Corpuscular Hemoglobin Concent 35 g/dL (31-37) Red Cell Distribution Width 13.1 % (11.5-14.5) Platelet Count 226 x10^3/uL (140-400) Test 05/15/20 09:25 05/15/20 14:09 Heparin Anti-Xa Act, Unfractionated < 0.10 IU/mL (0.30-0.70) Lactic Acid Level 1.6 mmol/L (0.4-2.0) Laboratory Tests Test 05/15/20 14:09 Lactic Acid Level 1.6 mmol/L (0.4-2.0) Assessment/Plan Status post right lower extremity thrombectomy and fasciotomy--patient has excellent arterial blood flow to the right lower extremity. The patient's fasciotomy site are closed and the incisions appear healthy and clean. The patient can discharge home today on oral Xarelto. We will see him back in 2 weeks for follow-up. All questions were answered to his satisfaction regarding discharge. Justicifation of Admission Dx: Justifications for Admission: Justification of Admission Dx: Yes NICO MUJICA DO May 16, 2020 12:05
[2020-05-16] MEDS ORDERED: RIVA10TA PO (12:08)
[2020-05-16] MEDS ORDERED: OXYC1TAB15 PO (12:08)
--- NOTE | 2020-05-16 12:12 | PDOC3 ---
Discharge Summary Visit Information Date of Admission: May 11, 2020 Date of Discharge: May 16, 2020 Brief Hospital Course Allergies Allergies Coded Allergies Type Severity Reaction Last Updated Verified No Known Drug Allergies 05/14/20 No Vital Signs GENERAL: No apparent distress. Alert and oriented. HEENT: Head normocephalic, atraumatic. NECK: Supple LUNGS: Clear to auscultation. HEART: RRR, S1, S2 present, pulses intact ABDOMEN: Soft, positive bowel sounds. EXTREMITIES: No cyanosis or edema. NEUROLOGIC: Normal speech, normal tone PSYCHIATRIC: Normal affect, normal mood. SKIN: right leg with wound vac Vital Signs Date Time Temp Pulse Resp B/P (MAP) Pulse Ox O2 Delivery O2 Flow Rate FiO2 05/16/20 10:33 Room Air 05/16/20 09:30 79 130/83 05/16/20 07:00 97.6 16 99 97.6 Lab Results Laboratory Tests Test 05/14/20 13:35 05/14/20 21:40 05/15/20 01:35 05/15/20 03:30 Heparin Anti-Xa Act, Unfractionated < 0.10 IU/mL (0.30-0.70) 0.17 IU/mL (0.30-0.70) 0.37 IU/mL (0.30-0.70) Lactic Acid Level 0.9 mmol/L (0.4-2.0) 3.7 mmol/L (0.4-2.0) 1.7 mmol/L (0.4-2.0) 1.7 mmol/L (0.4-2.0) White Blood Count 9.7 x10^3/uL (4.0-11.0) Red Blood Count 3.09 x10^6/uL (4.30-5.70) Hemoglobin 11.4 g/dL (13.0-17.5) Hematocrit 32.3 % (39.0-53.0) Mean Corpuscular Volume 105 fL (79-100) Mean Corpuscular Hemoglobin 37 pg (25-35) Mean Corpuscular Hemoglobin Concent 35 g/dL (31-37) Red Cell Distribution Width 13.1 % (11.5-14.5) Platelet Count 226 x10^3/uL (140-400) Test 05/15/20 09:25 05/15/20 14:09 Heparin Anti-Xa Act, Unfractionated < 0.10 IU/mL (0.30-0.70) Lactic Acid Level 1.6 mmol/L (0.4-2.0) Laboratory Tests Test 05/15/20 14:09 Lactic Acid Level 1.6 mmol/L (0.4-2.0) Brief Hospital Course 59 year old male with sudden onset of right leg pain and numbness last night. He did suffer an injury to his right leg by cutting his leg on his deck approximately 1 week ago. He reports no pain in his left leg currently, no numbness or weakness. He has felt healthy with no chest pain or shortness of breath. He has no history of strokes. He takes no blood thinners at home. he underwent a CT angiogram of the pelvis and right lower extremity, which shows occlusion of the right common iliac and external iliac artery, which appears likely to be thrombus. There isreconstitution of the common femoral artery and runoff through his lower extremity through his posterior tibial artery, the anterior tibial artery appears occluded in the lower leg. His left iliac artery and femoral artery are widely patent. Patient indicates he fell through at the top step of a short staircase to the ground falling approximately 3 feet landing onto his feet and pulled himself back out of the staircase noticing an abrasion to his right bean area that he has been taking care with soap and water and antibiotic ointment daily. A/P Right lower extremity acute limb-threatening ischemia secondary to thrombosis of his right iliac artery s/p Right common femoral artery cutdown with thrombectomy of the right iliac, Right common femoral artery and profunda artery endarterectomy, Right calf 4-compartment fasciotomies through an open medial and lateral incision. 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 plan was on heparin drip off but transition to xarelto per sx. script given cards consulted:Outpatient event monitor for evaluation for AFIB has been arranged Follow up in our office with Dr. Stahl June 24 at 1:00pm. patient can be discharged home without home health. will follow up with [facility] sx as outpatient daily ASA continue.watch out for signs and symptoms of bleeding since on oral AC and ASA. full code script for pain meds also given. dc today. Discharge Information Condition at Discharge: Improved Follow Up: Weeks (vascular in [address] Stahl June 24 at 1:00pm.) Disposition/Orders: D/C to Home Scheduled Cyclobenzaprine Hcl (Cyclobenzaprine Hcl) 10 Mg Tablet, 1 TAB PO TID for spasms, #90 (Reported) Entered as Reported by: NICKY MADRIGAL on 05/11/201543 Last Taken: Unknown Dose on Unknown Date & Time Last Action: Continued on 05/11/201740 by ANGELICA JONAS MD Lisinopril (Lisinopril) 20 Mg Tablet, 1 TAB PO DAILY for HTN, #30 Ref 5 (Reported) Entered as Reported by: NICKY MADRIGAL on 05/11/201543 Last Taken: Unknown Dose on Unknown Date & Time Last Action: Continued on 05/11/201740 by ANGELICA JONAS MD Meloxicam (Meloxicam) 15 Mg Tablet, 1 TAB PO DAILY for spasms for 30 Days, #30 Ref 0 (Reported) Entered as Reported by: NICKY MADRIGAL on 05/11/201543 Last Taken: Unknown Dose on Unknown Date & Time Last Action: HELD on 05/11/201740 by ANGELICA JONAS MD Rivaroxaban (Xarelto) 10 Mg Tablet, 20 MG PO DAILYWSUP for arterial occlusion for 30 Days, #60 Ref 3 Prescribed by: ANGELICA JONAS MD on 05/16/20 1208 Sildenafil Citrate (Viagra) 50 Mg Tablet, 1 TAB PO UD for impotence, #6 Ref 5 (Reported) Entered as Reported by: NICKY MADRIGAL on 05/11/201543 Last Taken: Unknown Dose on Unknown Date & Time Last Action: HELD on 05/11/201740 by ANGELICA JONAS MD Trazodone Hcl (Trazodone Hcl) 50 Mg Tablet, 1 TAB PO QHS for insomnia, #30 Ref 1 (Reported) Entered as Reported by: NICKY MADRIGAL on 05/11/201543 Last Taken: Unknown Dose on Unknown Date & Time Last Action: Continued on 05/11/201740 by ANGELICA JONAS MD Scheduled PRN Albuterol Sulfate (Proair Hfa Inhaler) 8.5 Gm Hfa.aer.ad, 2 PUFF IH PRN Q4-6HRS PRN for wheezing for 21 Days, #1 Ref 0 (Reported) Entered as Reported by: NICKY MADRIGAL on 05/11/20 1544 Last Taken: Unknown Dose on Unknown Date & Time Last Action: New Order on 05/11/201543 by NICKY MADRIGAL Oxycodone/Apap 5-325 (Percocet 5-325 Mg Tablet ) 1 Each Tablet, 1 TAB PO PRN Q4HRS PRN for PAIN for 5 Days, #20 Prescribed by: ANGELICA JONAS MD on 05/16/20 1208 Discontinued Medications Lisinopril (Lisinopril) 10 Mg Tablet, 1 TAB PO DAILY for HTN, #30 Ref 5 (Reported) Entered as Reported by: NICKY MADRIGAL on 05/11/20 152 Last Taken: Unknown Dose on Unknown Date & Time Last Action: Discontinued on 05/11/20 1533 by NICKY MADRIGAL Justicifation of Admission Dx: Justifications for Admission: Justification of Admission Dx: Yes ANGELICA JONAS MD May 16, 2020 12:12
--- NOTE | 2020-05-16 15:14 | NUR ---
Discharge Note: STEVEN SCOTT Discharge instructions and discharge home medications reviewed with Patient and a copy given. All questions have been answered and understanding verbalized. The following instructions and handouts were given: embolectomy and thrombectomy. Wound care instructions and return demonstration given to patient. Discontinued iv line catheter intact. Patient discharged to home with self-care via private vechile.
== END 2020-05-16 13:45 | disposition home or self-care (01) | DRG 271 ==
LOC: ER 20:17 → 2 NORTH 05-11 00:43
PROVIDERS: ADMIT Internal Medicine; ATTEND Internal Medicine
PROC: 04CK3ZZ Extirpation of Matter from Right Femoral Artery, Percutaneous Approach (ICD-10-PCS; 2020-05-11)
PROC: 0KNS0ZZ Release Right Lower Leg Muscle, Open Approach (ICD-10-PCS; 2020-05-11)
PROC: 0KNS0ZZ Release Right Lower Leg Muscle, Open Approach (ICD-10-PCS; 2020-05-11)
PROC: 0KNS0ZZ Release Right Lower Leg Muscle, Open Approach (ICD-10-PCS; 2020-05-11)
PROC: 0KNS0ZZ Release Right Lower Leg Muscle, Open Approach (ICD-10-PCS; 2020-05-11)
PROC: 04CC3ZZ Extirpation of Matter from Right Common Iliac Artery, Percutaneous Approach (ICD-10-PCS; principal; 2020-05-11 01:30)
PROC: 0YQH0ZZ Repair Right Lower Leg, Open Approach (ICD-10-PCS; 2020-05-14)
DX: I74.5 Embolism and thrombosis of iliac artery (principal); E87.2 Acidosis; K50.90 Crohn's disease, unspecified, without complications; I70.211 Atherosclerosis of native arteries of extremities with intermittent claudication, right leg; I77.1 Stricture of artery; G89.29 Other chronic pain; F17.210 Nicotine dependence, cigarettes, uncomplicated; Z20.828 Contact with and (suspected) exposure to other viral communicable diseases; I10 Essential (primary) hypertension; W17.89XA Other fall from one level to another, initial encounter; Z82.49 Family history of ischemic heart disease and other diseases of the circulatory system; Z79.899 Other long term (current) drug therapy
CPT/HCPCS: 36415; 73706; 74174; 80048; 80053; 80061; 81001; 83605; 84443; 84484; 85025; 85027; 85520; 85610; 85730; 88304; 93306; 96365; 96375; 96376; A7015; C1757; J0330; J0690; J1100; J1170; J1644; J2250; J2270; J2405; J2440; J2704; J2997; J3010; J3490; J7030; J7040; J7120; Q9967; 99285-25; A4461; G0378; U0003-CS